=== PATIENT | female | born 1975 | race Caucasian/White ===

== ENCOUNTER 2016-06-27 14:20 | Inpatient (IN) | payer MEDICAID ==
[2016-06-27] MEDS ORDERED: ONDANSETRON 4 MG/2 ML VIAL IVP STA (14:50)
[2016-06-27] MEDS ORDERED: HYOSCYAMINE SL 0.125 MG TABLET SL STA (14:51)
[2016-06-27] MEDS ORDERED: ONDANSETRON 4 MG/2 ML VIAL ONE (15:15)
[2016-06-27] MEDS ORDERED: HYDROmorphone 1 MG/ML SYRINGE IVP STA (16:32)
[2016-06-27] MEDS ORDERED: SODIUM CHLORIDE 0.9% 1,000 ML IV ONE (16:32)
[2016-06-27] MEDS ORDERED: HYDROmorphone 1 MG/ML SYRINGE ONE (16:35)
[2016-06-27] MEDS ORDERED: LORazepam 2 MG/ML SYRINGE IVP STA (17:00)
[2016-06-27] MEDS ORDERED: LORazepam 2 MG/ML SYRINGE ONE (17:06)
[2016-06-27] MEDS: NS W/20 MEQ KCL 1,000 ML IV SCH ×2 (17:47→23:44)
[2016-06-27] MEDS: SODIUM CHLORIDE FLUSH 0.9% 10 ML SYRINGE IVP PRN (18:11)
[2016-06-27] MEDS: PANTOPRAZOLE 40 MG VIAL IVP SCH (18:23)
[2016-06-27] MEDS: HYDROmorphone 1 MG/ML SYRINGE IVP PRN ×3 (19:29→23:35)
[2016-06-27] MEDS: SODIUM CHLORIDE FLUSH 0.9% 10 ML SYRINGE IVP SCH (21:16)
[2016-06-27] MEDS: ONDANSETRON 4 MG/2 ML VIAL IVP PRN (23:35)
[2016-06-28] MEDS: HYDROmorphone 1 MG/ML SYRINGE IVP PRN ×10 (01:36→21:40)
[2016-06-28] MEDS: SODIUM CHLORIDE FLUSH 0.9% 10 ML SYRINGE IVP PRN (04:04)
[2016-06-28] MEDS: ONDANSETRON 4 MG/2 ML VIAL IVP PRN ×2 (04:04→08:39)
[2016-06-28] MEDS: LORazepam 2 MG/ML SYRINGE IVP PRN ×4 (04:10→20:28)
[2016-06-28] MEDS: PANTOPRAZOLE 40 MG VIAL IVP SCH ×2 (06:15→16:00)
[2016-06-28] MEDS: NS W/20 MEQ KCL 1,000 ML IV SCH ×3 (06:15→20:33)
[2016-06-28] MEDS: SODIUM CHLORIDE FLUSH 0.9% 10 ML SYRINGE IVP SCH ×3 (06:15→22:01)
[2016-06-28] MEDS: POLYETHYLENE GLYCOL 3350 17 GM PACKET PO SCH (08:39)
[2016-06-28] MEDS ORDERED: ALBUTEROL NEB 2.5 MG/3 ML INH ONE (09:52)
[2016-06-28] MEDS ORDERED: ALBUTEROL NEB 2.5 MG/3 ML INH PRN (10:15)
[2016-06-28] MEDS: ENOXAPARIN 40 MG/0.4 ML SYRINGE SUBQ SCH (11:08)
[2016-06-29] MEDS: ONDANSETRON 4 MG/2 ML VIAL IVP PRN (00:17)
[2016-06-29] MEDS: HYDROmorphone 1 MG/ML SYRINGE IVP PRN ×10 (00:17→21:46)
[2016-06-29] MEDS: LORazepam 2 MG/ML SYRINGE IVP PRN ×5 (02:32→12:30)
[2016-06-29] MEDS: NS W/20 MEQ KCL 1,000 ML IV SCH ×4 (02:33→18:44)
[2016-06-29] MEDS: SODIUM CHLORIDE FLUSH 0.9% 10 ML SYRINGE IVP SCH ×3 (05:52→23:08)
[2016-06-29] MEDS: PANTOPRAZOLE 40 MG VIAL IVP SCH ×2 (05:53→17:01)
[2016-06-29] MEDS: ENOXAPARIN 40 MG/0.4 ML SYRINGE SUBQ SCH (08:55)
[2016-06-29] MEDS: POLYETHYLENE GLYCOL 3350 17 GM PACKET PO SCH (08:55)
[2016-06-29] MEDS ORDERED: DOCUSATE SODIUM 250 MG CAPSULE PO PRN (22:00)
[2016-06-30] MEDS: LORazepam 2 MG/ML SYRINGE IVP PRN ×4 (00:06→19:03)
[2016-06-30] MEDS: HYDROmorphone 1 MG/ML SYRINGE IVP PRN ×3 (00:06→08:09)
[2016-06-30] MEDS: SENNA 8.6 MG TABLET PO PRN ×2 (00:16→08:13)
[2016-06-30] MEDS: NS W/20 MEQ KCL 1,000 ML IV SCH ×2 (06:46→16:53)
[2016-06-30] MEDS: SODIUM CHLORIDE FLUSH 0.9% 10 ML SYRINGE IVP SCH ×3 (06:46→23:04)
[2016-06-30] MEDS: PANTOPRAZOLE 40 MG VIAL IVP SCH ×2 (06:50→15:52)
[2016-06-30] MEDS: SODIUM CHLORIDE FLUSH 0.9% 10 ML SYRINGE IVP PRN ×3 (08:10→11:56)
[2016-06-30] MEDS: POLYETHYLENE GLYCOL 3350 17 GM PACKET PO SCH (08:13)
[2016-06-30] MEDS: ENOXAPARIN 40 MG/0.4 ML SYRINGE SUBQ SCH (09:58)
[2016-06-30] MEDS: MAGNESIUM HYDROXIDE 2,400 MG/30 ML UDC PO PRN (10:39)
[2016-06-30] MEDS: ONDANSETRON 4 MG/2 ML VIAL IVP PRN (11:52)
[2016-06-30] MEDS ORDERED: oxyCODONE 5 MG TABLET PO PRN (13:16)
[2016-06-30] MEDS ORDERED: ALBUTEROL 8 GM INHALER INH PRN ×2 (15:20→15:28)
[2016-06-30] MEDS ORDERED: ACETAMINOPHEN 1,000 MG/100 ML 100 ML IV PRN (16:39)
[2016-06-30] MEDS ORDERED: ACETAMINOPHEN 1,000 MG/100 ML 100 ML IV SCH (17:00)
[2016-06-30] MEDS: CITALOPRAM 10 MG TABLET PO SCH (19:33)
[2016-06-30] MEDS: HYDROcod/ACETAM 10 MG/325 MG TABLET PO PRN (20:19)
[2016-07-01] MEDS: HYDROcod/ACETAM 10 MG/325 MG TABLET PO PRN (00:23)
[2016-07-01] MEDS: LORazepam 2 MG/ML SYRINGE IVP PRN (00:24)
[2016-07-01] MEDS: HYDROmorphone 1 MG/ML SYRINGE IVP PRN (00:54)
[2016-07-01] MEDS: ACETAMINOPHEN 325 MG TABLET PO PRN ×2 (05:12→14:28)
[2016-07-01] MEDS: SODIUM CHLORIDE FLUSH 0.9% 10 ML SYRINGE IVP SCH (05:14)
[2016-07-01] MEDS: PANTOPRAZOLE 40 MG VIAL IVP SCH (06:03)
[2016-07-01] MEDS: MAGNESIUM HYDROXIDE 2,400 MG/30 ML UDC PO PRN ×2 (07:44→09:54)
[2016-07-01] MEDS: ONDANSETRON 4 MG/2 ML VIAL IVP PRN ×2 (08:30→14:28)
[2016-07-01] MEDS: SODIUM CHLORIDE FLUSH 0.9% 10 ML SYRINGE IVP PRN ×2 (08:30→14:28)
[2016-07-01] MEDS: CITALOPRAM 10 MG TABLET PO SCH (08:30)
[2016-07-01] MEDS: POLYETHYLENE GLYCOL 3350 17 GM PACKET PO SCH (09:54)
[2016-07-01] MEDS: ENOXAPARIN 40 MG/0.4 ML SYRINGE SUBQ SCH (09:55)
[2016-07-01] MEDS: SENNA 8.6 MG TABLET PO PRN (09:55)
== END 2016-07-01 16:10 | disposition home or self-care (01) | DRG 440 ==
DX: K85.20 Alcohol induced acute pancreatitis without necrosis or infection (principal); K70.10 Alcoholic hepatitis without ascites; F10.10 Alcohol abuse, uncomplicated; K83.9 Disease of biliary tract, unspecified; J45.909 Unspecified asthma, uncomplicated; R73.9 Hyperglycemia, unspecified; E66.9 Obesity, unspecified; F32.9 Major depressive disorder, single episode, unspecified; F41.9 Anxiety disorder, unspecified; K21.9 Gastro-esophageal reflux disease without esophagitis; Z68.30 Body mass index [BMI] 30.0-30.9, adult; K76.0 Fatty (change of) liver, not elsewhere classified; K76.89 Other specified diseases of liver

== ENCOUNTER 2016-12-20 05:31 | Inpatient (IN) | payer MEDICAID ==
[2016-12-20] MEDS ORDERED: FAMOTIDINE 20 MG/2 ML VIAL IVP STA (05:38)
[2016-12-20] MEDS ORDERED: SODIUM CHLORIDE 0.9% 1,000 ML IV ONE ×2 (05:38→06:55)
[2016-12-20] MEDS ORDERED: ONDANSETRON 4 MG/2 ML VIAL IVP STA (05:38)
[2016-12-20] MEDS ORDERED: ONDANSETRON 4 MG/2 ML VIAL ONE (05:59)
[2016-12-20] MEDS ORDERED: SODIUM CHLORIDE FLUSH 0.9% 10 ML SYRINGE IVP ONE (05:59)
[2016-12-20] MEDS ORDERED: FAMOTIDINE 20 MG/2 ML VIAL ONE (06:00)
--- NOTE | 2016-12-20 06:00 | ED Physician Documentation ---
PD HPI ABD PAIN - Stated complaint Stated Complaint: ABD PX - Chief complaint Chief Complaint: Abd Pain - History obtained from History obtained from: Patient - History of Present Illness Timing - onset: Yesterday Timing - details: Gradual onset, Still present Quality: Sharp, Stabbing Location: Epigastric Worsened by: Eating, Palpation Associated symptoms: Nausea, Vomiting. No: Fever, Hematemesis, Diarrhea, Constipation, Melena, Hematochezia Similar symptoms before: Work up / diagnostics, Treatment Recently seen: Not recently seen - Additional information Additional information: Patient is a 41 year old female with a history of alcohol abuse and pancreatitis who is presenting to the emergency department for epigastric pain. Patient states that after being diagnosed with pancreatitis she had quit drinking for awhile but recently she started up again. Patient states that she had epigastric pain starting yesterday and one episode of emesis. Review of Systems Constitutional: denies: Fever, Chills Eyes: denies: Loss of vision Nose: denies: Rhinorrhea / runny nose, Congestion Throat: denies: Oral lesions / sores, Sore throat Cardiac: denies: Chest pain / pressure, Palpitations, Calf pain Respiratory: denies: Dyspnea, Cough GI: reports: Abdominal Pain, Nausea, Vomiting. denies: Constipation, Diarrhea : denies: Dysuria, Frequency, Hesitancy, Unable to Void, Hematuria, Discharge , Vaginal bleeding Skin: denies: Rash, Lesions Neurologic: denies: Generalized weakness, Focal weakness Psychiatric: denies: Depressed, Suicidal PD PAST MEDICAL HISTORY - Past Medical History Cardiovascular: None Respiratory: Asthma Neuro: None Endocrine/Autoimmune: None GI: GERD : None HEENT: None Psych: Depression, Anxiety Musculoskeletal: None Derm: None Other Past Medical History: pancreatitis - Past Surgical History Past Surgical History: No - Present Medications Home Medications: Ambulatory Orders Medication Instructions Recorded Confirmed Omeprazole [PriLOSEC] 20 mg PO DAILY 02/23/16 12/20/16 Albuterol Sulfate [Proair Hfa 1 - 2 puffs INH Q4H PRN 06/28/16 12/20/16 Inhaler] Multivitamin [Theragran] 1 tab PO DAILY 06/28/16 12/20/16 - Allergies Allergies/Adverse Reactions: Allergies Allergy/AdvReac Type Severity Reaction Status Date / Time No Known Drug Allergies Allergy Verified 02/23/16 17:22 - Social History Does the pt smoke?: No Smoking Status: Never smoker Does the pt drink ETOH?: Yes Does the pt have substance abuse?: No - Immunizations Immunizations: TDAP >10years/unknown, Other immun current - POLST Patient has POLST: No PD ED PE NORMAL - Vitals Vital signs reviewed: Yes - General General: Alert and oriented X 3, No acute distress, Well developed/nourished - HEENT HEENT: Atraumatic, PERRL, Pharynx benign - Cardiac Cardiac: RRR, No murmur - Respiratory Respiratory: No respiratory distress - Abdomen Abdomen: Soft - Derm Derm: Normal color, Warm and dry, No rash - Extremities Extremities: No deformity, No tenderness to palpate, Normal ROM s pain, No edema - Neuro Neuro: Alert and oriented X 3, No motor deficit, No sensory deficit, Normal speech - Psych Psych: Normal mood PD ED PE EXPANDED - HEENT HEENT: Dry mucous membranes - Abdomen Abdomen: Tender to palpation, Epigastric. No: Rebound, Guarding Results - Vitals Vitals: Vital Signs - 24 hr 12/20/16 12/20/16 12/20/16 05:35 06:06 06:22 Temperature 36.2 C L Heart Rate 96 78 83 Respiratory 18 18 18 Rate Blood Pressure 155/104 H 134/98 H 140/98 H O2 Saturation 100 100 96 Oxygen O2 Source Room air - Labs Labs: Laboratory Tests 12/20/16 12/20/16 12/20/16 05:50 05:50 05:50 WBC 11.5 H RBC 4.41 Hgb 14.7 Hct 43.4 MCV 98.6 MCH 33.3 H MCHC 33.8 RDW 13.1 Plt Count 171 MPV 8.5 Neut # 8.2 H Lymph # 2.3 [place] # 0.8 Eos # 0.3 Baso # 0.1 Absolute Nucleated RBC 0.01 Nucleated RBC % 0.0 Sodium 131 L Potassium 3.3 L Chloride 97 L Carbon Dioxide 23 Anion Gap 11.0 BUN 8 Creatinine 0.5 Estimated GFR (MDRD) 135 Glucose 120 H Calcium 8.5 Total Bilirubin 0.9 AST 109 H ALT 125 H Alkaline Phosphatase 71 Lactate Dehydrogenase 220 Total Protein 7.8 Albumin 4.0 Globulin 3.8 Albumin/Globulin Ratio 1.1 Lipase 3310 H - Rads (name of study) ct abd pelvis Radiology: EMP read indepedently (pancreatisis) PD MEDICAL DECISION MAKING - ED course Complexity details: reviewed old records, reviewed results, re-evaluated patient , considered differential, d/w patient ED course: Patient was seen and examined at bedside. IV access was gained and labs were drawn. patient was treated with fluids, zofran, pepcid and morphine. previous results were reviewed which were consistent with pancreatitis. When patient's labs returned she was sent for imaging. When patient returned the results were reviewed. It was consistent with pancreatitis. case was discussed with hospitalist and treated with an additional liter of fluid. Patient had a low hu score but still required admission. Departure - Departure Disposition: 66 [facility] DC/Xfer Clinical Impression: Pancreatitis Condition: Good
[2016-12-20 06:01] LABS: BASOPHILS # (AUTO) 0.1 10^3/uL (0.0-0.1); BASOPHILS % (AUTO) 0.6 %; EOSINOPHILS # (AUTO) 0.3 10^3/uL (0.0-0.7); EOSINOPHILS % (AUTO) 2.4 %; HCT - HEMATOCRIT 43.4 % (37.0-47.0); HGB - HEMOGLOBIN 14.7 g/dL (12.0-16.0); LYMPHOCYTES # (AUTO) 2.3 10^3/uL (1.5-3.5); LYMPHOCYTES % (AUTO) 19.6 %; MEAN CORPUSCULAR HEMOGLOBIN 33.3 pg (27.0-31.0); MEAN CORPUSCULAR HGB CONC 33.8 g/dL (32.0-36.0); MEAN CORPUSCULAR VOLUME 98.6 fL (81.0-99.0); MEAN PLATELET VOLUME 8.5 fL (7.9-10.8); MONOCYTES # (AUTO) 0.8 10^3/uL (0.0-1.0); MONOCYTES % (AUTO) 6.6 %; NEUTROPHILS # (AUTO) 8.2 10^3/uL (1.5-6.6); NEUTROPHILS % (AUTO) 70.8 %; RED BLOOD COUNT 4.41 10^6/uL (4.20-5.40); RED CELL DISTRIBUTION WIDTH 13.1 % (12.0-15.0); UNCORRECTED WHITE BLOOD COUNT 11.5 x10^3/uL; WHITE BLOOD COUNT 11.5 x10^3/uL (4.8-10.8)
[2016-12-20] MEDS ORDERED: MORPHINE 10 MG/ML VIAL IVP STA (06:01)
[2016-12-20] MEDS ORDERED: MORPHINE 2 MG/ML SYRINGE ONE (06:08)
[2016-12-20 06:29] LABS: ALBUMIN/GLOBULIN RATIO 1.1 (1.0-2.2); BILIRUBIN,TOTAL 0.9 mg/dL (0.2-1.0); CALCIUM 8.5 mg/dL (8.5-10.3); CREATININE 0.5 mg/dL (0.4-1.0); POTASSIUM 3.3 mmol/L (3.5-5.0); TOTAL PROTEIN 7.8 g/dL (6.7-8.2)
[2016-12-20] MEDS ORDERED: IOPAMIDOL-300 100 ML VIAL ONE (06:37)
[2016-12-20] MEDS ORDERED: IOPAMIDOL-300 100 ML VIAL IVP ONE (07:05)
--- NOTE | 2016-12-20 07:22 | CT Preliminary Report ---
Exam: CT ABDOMEN/PELVIS W/ IMPRESSION: 1. Acute pancreatitis without evidence of pancreatic duct dilatation, pancreatic necrosis, mass or pe ripancreatic fluid collection. 2. Small amount of sludge or low dense gallbladder tones without evidence of acute cholecystitis, nae e duct dilatation or calcified filling defect. 3. Hepatic steatosis. 4. Small to moderately sized hiatal hernia and small umbilical hernia containing fat. 5. Mild colon diverticulosis. [facility] SITE ID: [id number]
--- NOTE | 2016-12-20 07:25 | CT Report ---
EXAM: CT ABDOMEN AND PELVIS EXAM DATE: 12/20/2016 06:47 AM. CLINICAL HISTORY: Epigastric pain, hx of pancreatitis. COMPARISONS: None. TECHNIQUE: Routine helical CT imaging was performed through the abdomen and pelvis. IV contrast: 100 cc of Isovue 300. Enteric contrast: No. Reconstructions: Coronal and sagittal. In accordance with CT protocol optimization, one or more of the following dose reduction techniques w ere utilized for this exam: automated exposure control, adjustment of mA and/or KV based on patient s ize, or use of iterative reconstructive technique. FINDINGS: Lung Bases: Small to moderate size hiatal hernia is noted. No pleural effusion. Liver: Diffuse low density without lobular contour changes or masses. Gallbladder/Bile Ducts: Small amount of sludge or low dense gallbladder stones without gallbladder wa ll thickening visualized. No bile duct dilatation or calcified filling defect. Spleen: Normal. Pancreas: Diffuse mild/moderate peripancreatic fat stranding extending to the second part of the tami -duodenal space is noted. There is no pancreatic duct dilatation. No pancreatic duct dilatation, mass or peripancreatic fluid collection seen. Adrenal Glands: Normal. Kidneys: There is a simple cortical cyst in the mid lateral cortex of the left kidney, 1 cm. No stone , masses or hydronephrosis. Peritoneal Cavity/Bowel: There is mild colon diverticulosis without diverticulitis. No free fluid, fr ee air or adenopathy. No masses or acute inflammatory process. The appendix is well visualized and no rmal. Pelvic Organs: the bladder and visualized pelvic organs are within normal limits. Vasculature: No aneurysms or other significant abnormality. Bones: Mild/moderate degenerative disk disease in the and L5-S1. Other: There is a small umbilical hernia containing fat without fat stranding, 1.8 x 2 cm. IMPRESSION: 1. Acute pancreatitis without evidence of pancreatic duct dilatation, pancreatic necrosis, mass or pe ripancreatic fluid collection. 2. Small amount of sludge or low dense gallbladder tones without evidence of acute cholecystitis, nae e duct dilatation or calcified filling defect. 3. Hepatic steatosis. 4. Small to moderately sized hiatal hernia and small umbilical hernia containing fat. 5. Mild colon diverticulosis. [facility] Referring Provider Line: [phone] SITE ID: [id number]
[2016-12-20] MEDS ORDERED: PROMETHAZINE 25 MG/1 ML VIAL IM PRN (07:51)
[2016-12-20] MEDS ORDERED: SODIUM CHLORIDE FLUSH 0.9% 10 ML SYRINGE IVP PRN (07:51)
[2016-12-20] MEDS: SODIUM CHLORIDE FLUSH 0.9% 10 ML SYRINGE IVP SCH ×2 (08:50→19:47)
[2016-12-20] MEDS: POLYETHYLENE GLYCOL 3350 17 GM PACKET PO SCH ×2 (08:50→19:54)
[2016-12-20] MEDS: SODIUM CHLORIDE 0.9% 1,000 ML IV SCH ×4 (08:50→23:45)
[2016-12-20] MEDS: PANTOPRAZOLE 40 MG VIAL IVP SCH (08:51)
[2016-12-20] MEDS: HYDROmorphone 0.5 MG/0.5 ML SYRINGE IVP PRN ×7 (08:52→23:46)
[2016-12-20 08:59] LABS: BILIRUBIN,URINE NEGATIVE (NEGATIVE); PH,URINE 6.5 PH (5.0-7.5)
[2016-12-20 09:02] LABS: UA w/ MICROSCOPIC CHARGE YES
[2016-12-20 09:10] LABS: UR CULTURE IF IND NOT INDICATED
[2016-12-20 09:47] LABS: BASOPHILS % (AUTO) 0.5 %; EOSINOPHILS # (AUTO) 0.1 10^3/uL (0.0-0.7); EOSINOPHILS % (AUTO) 0.6 %; HCT - HEMATOCRIT 39.1 % (37.0-47.0); HGB - HEMOGLOBIN 13.5 g/dL (12.0-16.0); LYMPHOCYTES % (AUTO) 11.3 %; MEAN CORPUSCULAR HEMOGLOBIN 33.4 pg (27.0-31.0); MEAN CORPUSCULAR HGB CONC 34.5 g/dL (32.0-36.0); MEAN CORPUSCULAR VOLUME 96.8 fL (81.0-99.0); MEAN PLATELET VOLUME 8.7 fL (7.9-10.8); MONOCYTES # (AUTO) 0.5 10^3/uL (0.0-1.0); MONOCYTES % (AUTO) 5.6 %; NEUTROPHILS # (AUTO) 7.6 10^3/uL (1.5-6.6); RED BLOOD COUNT 4.04 10^6/uL (4.20-5.40); UNCORRECTED WHITE BLOOD COUNT 9.3 x10^3/uL; WHITE BLOOD COUNT 9.3 x10^3/uL (4.8-10.8)
[2016-12-20 10:06] LABS: ALBUMIN/GLOBULIN RATIO 1.1 (1.0-2.2); BILIRUBIN,TOTAL 0.7 mg/dL (0.2-1.0); CALCIUM 7.9 mg/dL (8.5-10.3); CREATININE 0.5 mg/dL (0.4-1.0); POTASSIUM 4.1 mmol/L (3.5-5.0); TOTAL PROTEIN 6.7 g/dL (6.7-8.2)
[2016-12-20 10:07] LABS: INR 1.1 (0.8-1.2); PT - PROTHROMBIN TIME 11.8 secs (9.9-12.6)
[2016-12-20] MEDS ORDERED: ALBUTEROL NEB 2.5 MG/3 ML INH PRN (10:21)
[2016-12-20] MEDS ORDERED: MAGNESIUM SULFATE 2 GRAM 2 GM/50 ML BAG IV SCH (10:42)
[2016-12-20] MEDS ORDERED: CYANOCOBALAMIN 1,000 MCG/ML VIAL IM SCH (10:43)
[2016-12-20] MEDS: ALPRAZolam 0.25 MG TABLET PO PRN (11:07)
[2016-12-20] MEDS: PRENATAL VITAMIN TABLET PO SCH (11:08)
[2016-12-20] MEDS: THIAMINE 100 MG TABLET PO SCH (11:08)
[2016-12-20] MEDS: CHOLECALCIFEROL 5,000 UNIT CAPSULE PO SCH ×2 (11:08→19:47)
[2016-12-20] MEDS: ACETAMINOPHEN 325 MG TABLET PO PRN (16:46)
--- NOTE | 2016-12-20 16:48 | HISTORY & PHYSICAL EXAMINATION ---
DATE OF ADMISSION: 12/20/2016 CHIEF COMPLAINT: Abdominal pain. HISTORY OF PRESENT ILLNESS: The patient is a very pleasant 41-year-old female who presented to the ER today with a complaint of gradual onset of abdominal pain that she describes to be sharp a nd stabbing, mostly in the epigastric region. She states that it has progressively gotten worse by ea ting and with palpation. She has had nausea and vomiting associated with this. She denies fever, chil ls, diarrhea, constipation, hematochezia or hematemesis. She states she has had similar symptoms befo re while she was at work. 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 She does have excessive alcohol usage, which she does d rink daily, usually wine. She states the last time that she was diagnosed with pancreatitis she had q uit drinking, but then she had recently just started up again. She states that she has been trying to quit again with no avail. She denies congestion, sore throat, chest pain, palpitations, cough, dysur ia, rash, lesions, generalized weakness, depression or suicidal ideation. She admits to abdominal yumiko n with nausea and vomiting. While in the ER, lab work was done and lipase showed to be 3300. She was given IV fluids for aggressive hydration. She was given morphine IV for pain. She will be admitted in to inpatient status with aggressive hydration and IV pain medication, Zofran for nausea, Phenergan fo r vomiting. Her only other past medical history includes asthma and GERD and anxiety. ALLERGIES: NO KNOWN DRUG ALLERGIES. HOME MEDICATIONS: 1. Prilosec 20 mg p.o. daily. 2. Albuterol sulfate 1-2 puffs inhaled q.4h. hours p.r.n.. 3. Theragran multivitamin p.o. daily. PAST MEDICAL HISTORY: 1. Asthma. 2. Gastroesophageal reflux disease. 3. Depression and anxiety. 4. Past history of pancreatitis. 5. Obesity and alcohol abuse. PAST SURGICAL HISTORY: None. SOCIAL HISTORY: The patient has never smoked. She does use alcohol on a daily basis and is an alcohol ic and admits to this. She does not use any illicit street drugs at the time, but she did smoke marij uana approximately 3-4 weeks ago. FAMILY HISTORY: The patient states that her mom has a history of hypertension and her father also has a history of stroke. REVIEW OF SYSTEMS: Ten systems have been reviewed and negative with exceptions as discussed in the HP I prior. PHYSICAL EXAMINATION: CONSTITUTIONAL: The patient is alert, in no acute distress. EYES: Pupils equal, round and react to light and accommodation. Conjunctivae and sclerae was nonicter ic, not injected. ENT: Nares are patent. No nasal discharge. OROPHARYNX: No masses, exudates or lesions. Mucous membranes are moist. NECK: Supple. No thyromegaly. RESPIRATORY: Breath sounds are clear and equal bilaterally to auscultation and percussion, no retract ions or nasal flaring. CARDIOVASCULAR: S1, S2 noted. No gallops, murmurs or rubs. Normal PMI. No JVD. GASTROINTESTINAL: Abdomen is soft, obese, tender to mid epigastric region, otherwise no guarding or r ebound. NEUROLOGICAL: She is alert, GCS 15. Cranial nerves 2 through 7 grossly intact. Sensory is intact. SKIN: Warm, dry, intact. Normal turgor. No evidence of rash, lesions, or cellulitis. MUSCULOSKELETAL: Extremities: The patient has full range of motion with upper and lower extremities. No cyanosis. Motor is 5/5 to upper and lower extremities. PSYCHIATRIC: Behavior is appropriate. Normal affect, pleasant mood. Alert and oriented x3. No suicida l ideation. She is oriented x3, cooperative, and normal affect. HEMATOLOGIC: No active bleeding. The patient is hemodynamically stable. LYMPHATICS: No cervical, axillary, or supraclavicular lymphadenopathy is noted. GENITOURINARY: No CVA tenderness. No mass palpated. No bladder distention. VITAL SIGNS: Temperature is 36.2, heart rate 78, respirations 18, and blood pressure is 134/98, with an oxygen saturation of 100% on room air. LABORATORIES AND DIAGNOSTICS: I personally reviewed all laboratory and diagnostic data in the medical records. The results are as follows: WBC is 11.5. Neutrophil percentage 8.2, sodium is 131, potassiu m 3.3, chloride 97, glucose 120, AST is 109, ALT is 125, lipase is 3310. DIAGNOSTIC IMAGING: CT of the abdomen and pelvis performed in the ER with an impression showing acute pancreatitis without evidence of pancreatic duct dilatation, pancreatic necrosis, mass, peripancreat ic fluid collection, small amount of sludge dense gallbladder stones, without evidence of acu te cholecystitis, bile duct dilatation or calcified filling defect. Hepatic steatosis, mild colon div erticulosis, small to moderately sized hiatal hernia and small umbilical hernia containing fat. ASSESSMENT: 1. Acute mid epigastric abdominal pain with acute pancreatitis, probably alcoholic. PLAN: Admit the patient inpatient with IV aggressive hydration and IV pain medication, Dilaudid and m orphine. IV Zofran and Phenergan for nausea, vomiting. N.p.o. status to advance as tolerated. Will pr ovide alcohol cessation counseling. The patient has been placed on CIWA protocol with Ativan IV as ne eded for withdrawal. Will continue to monitor on telemetry. We will continue to monitor electrolytes including magnesium level. 2. Acute hyponatremia/hypokalemia and hypomagnesium and other electrolyte imbalances with acute on ch ronic alcohol abuse with dependence. PLAN: We will replete electrolytes including potassium IV, magnesium sulfate IV, and we will give IV fluids, normal saline aggressive hydration. We will repeat all electrolytes levels with daily lab gonzalo edenilson in the morning. We will continue to monitor the patient on telemetry. 3. Acute on chronic alcohol usage with dependence, uncomplicated and with acute alcohol-induced syndr ome. PLAN: Continue to residence counselor the patient on alcohol cessation. Will continue to monitor electrolytes. Th e patient's pancreatitis is likely due to alcohol use; however, will also rule out elevated triglycer ides with a lipid profile in the morning. 4. Chronic asthma unspecified without exacerbation. PLAN: Will continue the patient on her normal dosage of Albuterol sulfate as needed and supplemental oxygen has been ordered with respiratory therapy support if needed. 5. Chronic gastroesophageal reflux disease with mild to moderate size hiatal hernia. PLAN: Will continue the patient on omeprazole 20 mg p.o. daily. 6. Chronic depression with anxiety disorder, unspecified. PLAN: We will continue to monitor the patient's mental and behavioral status. CIWA protocol has been ordered, Ativan for agitation. The patient has also been given Xanax for anxiety and mood disorder. 7. Deep venous thrombosis prophylaxis with SCDS/foot pumps and walking. 8. STATUS: FULL CODE STATUS. 9. RISK ASSESSMENT/DISPOSITION: The patient is high risk for worsening comorbidities. She will requir e additional IV medication and possible additional diagnostics. Code status was addressed at bedside. The patient is admitted inpatient and will require at least 2 midnight stay due to her comorbidities . Time spent on assessment was 40 minutes for planning, education, and assessment. JOB #: [id number] EXT JOB #:[id number]
[2016-12-20] MEDS: ONDANSETRON 4 MG/2 ML VIAL IVP PRN (16:49)
[2016-12-20] MEDS: LORazepam 2 MG/ML SYRINGE IVP PRN ×3 (17:06→23:45)
[2016-12-20] MEDS: MORPHINE 2 MG/ML SYRINGE IVP PRN (19:46)
[2016-12-20] MEDS: ALBUTEROL NEB 2.5 MG/3 ML INH PRN (20:48)
[2016-12-21] MEDS: ALBUTEROL NEB 2.5 MG/3 ML INH PRN (00:45)
[2016-12-21] MEDS: HYDROmorphone 0.5 MG/0.5 ML SYRINGE IVP PRN ×10 (01:41→23:40)
[2016-12-21] MEDS: SODIUM CHLORIDE 0.9% 1,000 ML IV SCH ×4 (04:42→21:38)
[2016-12-21 05:44] LABS: BASOPHILS % (AUTO) 0.3 %; EOSINOPHILS # (AUTO) 0.1 10^3/uL (0.0-0.7); EOSINOPHILS % (AUTO) 0.8 %; HCT - HEMATOCRIT 37.6 % (37.0-47.0); HGB - HEMOGLOBIN 12.8 g/dL (12.0-16.0); LYMPHOCYTES # (AUTO) 0.8 10^3/uL (1.5-3.5); LYMPHOCYTES % (AUTO) 8.7 %; MEAN CORPUSCULAR HEMOGLOBIN 33.8 pg (27.0-31.0); MEAN CORPUSCULAR HGB CONC 34.1 g/dL (32.0-36.0); MONOCYTES # (AUTO) 0.7 10^3/uL (0.0-1.0); MONOCYTES % (AUTO) 7.1 %; NEUTROPHILS # (AUTO) 7.7 10^3/uL (1.5-6.6); NEUTROPHILS % (AUTO) 83.1 %; RED CELL DISTRIBUTION WIDTH 12.6 % (12.0-15.0); UNCORRECTED WHITE BLOOD COUNT 9.3 x10^3/uL; WHITE BLOOD COUNT 9.3 x10^3/uL (4.8-10.8)
[2016-12-21 06:01] LABS: BUN - BLOOD UREA NITROGEN < 5 mg/dL (6-20); CALCIUM 7.4 mg/dL (8.5-10.3); CARBON DIOXIDE - CO2 23 mmol/L (21-32); CHLORIDE 102 mmol/L (101-111); CHOL/HDL RATIO 3.5 (<4.4); CHOLESTEROL 192 mg/dL; CREATININE 0.4 mg/dL (0.4-1.0); GFR - MDRD 174 (>89); GLUCOSE 128 mg/dL (70-100); HDL CHOLESTEROL 55 mg/dL; LDL/HDL RATIO 2.3 (<4.4); POTASSIUM 4.1 mmol/L (3.5-5.0); SODIUM 131 mmol/L (135-145); TOTAL PROTEIN 6.2 g/dL (6.7-8.2); TRIGLYCERIDES 48 mg/dL; VLDL CHOLESTEROL 10 mg/dL
[2016-12-21] MEDS: PANTOPRAZOLE 40 MG VIAL IVP SCH (06:13)
[2016-12-21] MEDS: SODIUM CHLORIDE FLUSH 0.9% 10 ML SYRINGE IVP SCH ×3 (06:13→19:03)
[2016-12-21 06:16] LABS: MAGNESIUM 1.8 mg/dL (1.7-2.8)
[2016-12-21] MEDS: POLYETHYLENE GLYCOL 3350 17 GM PACKET PO SCH (07:39)
[2016-12-21] MEDS: ONDANSETRON 4 MG/2 ML VIAL IVP PRN (07:40)
[2016-12-21] MEDS: ALPRAZolam 0.25 MG TABLET PO PRN ×2 (07:44→17:01)
[2016-12-21] MEDS: CHOLECALCIFEROL 5,000 UNIT CAPSULE PO SCH ×2 (07:46→19:03)
--- NOTE | 2016-12-21 07:50 | PROVIDER PROGRESS NOTE ---
Assessment/Plan - Problem List (1) Alcohol induced acute pancreatitis without necrosis or infection Assessment/Plan: improving. lipase today has decreased to 1300 but patient is still having pain and still not eating much. will try to advance her diet and continue to monitor her lipase and electrolytes. will continue on IVF NS for hydration. continue on IV pain medications. will try to decrease pain meds and taper to oral prior to discharge. continued on alcohol counseling and monitoring for withdrawal with CIWA protocol. continue to monitor LFT with daily lab draws (2) Alcohol abuse with alcohol-induced disorder Assessment/Plan: improving. elevated liver enzymes improving and she has been counseled on cessation and problems with alcohol abuse. she is on CIWA protocol and continue to monitor behavior and vital signs for withdrawal (3) Hypophosphatemia Assessment/Plan: acute. will given neutraphos oral and monitor levels with daily lab draws. (4) Hyponatremia Assessment/Plan: acute. continue with IVF for hydration and monitor with daily lab draws. - Current Meds Current Meds: Current Medications Generic Name Dose Route Start Last Admin Trade Name Patience PRN Reason Stop Dose Admin Acetaminophen 650 mg 12/20/16 07:51 12/20/16 16:46 Tylenol PO 650 mg Q4HR PRN Administration Pain 1 to 4 Albuterol 2.5 mg 12/20/16 14:15 12/21/16 00:45 INH 2.5 mg RTQ4H PRN Administration Wheezing Alprazolam 0.5 mg 12/20/16 10:42 12/21/16 07:44 Xanax PO 0.5 mg BID PRN Administration Anxiety Cholecalciferol 5,000 unit 12/20/16 11:00 12/21/16 07:46 Vitamin D3 PO 5,000 unit BID WARREN Administration Hydromorphone HCl 0.5 mg 12/20/16 07:51 12/21/16 07:40 Dilaudid Inj Syringe IVP 0.5 mg Q2H PRN Administration Pain 8 to 10 Sodium Chloride 1,000 mls @ 200 mls/hr 12/20/16 08:00 12/21/16 04:42 Normal Saline 0.9% IV 200 mls/hr .Q5H WARREN Administration Lorazepam 1 mg 12/20/16 09:21 12/20/16 23:45 Ativan Inj IVP 1 mg Q30M PRN Administration CIWA > 8 Protocol Morphine Sulfate 2 mg 12/20/16 17:37 12/20/16 19:46 Morphine IVP 2 mg Q2H PRN Administration PAIN Ondansetron HCl 4 mg 12/20/16 07:51 12/21/16 07:40 Zofran Inj IVP 4 mg Q6HR PRN Administration Nausea / Vomiting Pantoprazole Sodium 40 mg 12/20/16 07:00 12/21/16 06:13 Protonix IVP 40 mg QDAC WARREN Administration Polyethylene Glycol 17 gm 12/20/16 09:00 12/21/16 07:39 Miralax PO 17 gm DAILY WARREN Administration Multivit/Folic Acid/Iron 1 tab 12/20/16 10:00 12/20/16 11:08 Trinatal Rx 1 PO 1 tab DAILY WARREN Administration Sodium Chloride 10 ml 12/20/16 14:00 12/21/16 06:13 Normal Saline Flush 0.9% IVP 10 ml Q8HR WARREN Administration Thiamine HCl 100 mg 12/20/16 10:00 12/20/16 11:08 Vitamin B-1 PO 100 mg DAILY WARREN Administration - Lab Result Lab results reviewed: Yes Fish Bone Diagrams: 12/21/16 05:12 12/21/16 05:12 Other Lab Results: Abnormal Lab Results 12/20/16 12/20/16 12/20/16 05:50 05:50 08:45 WBC 11.5 x10^3/uL H x10^3/uL (4.8-10.8) RBC MCH 33.3 pg H pg (27.0-31.0) Plt Count Neut # 8.2 10^3/uL H 10^3/uL (1.5-6.6) Lymph # Sodium 131 mmol/L L mmol/L (135-145) Potassium 3.3 mmol/L L mmol/L (3.5-5.0) Chloride 97 mmol/L L mmol/L (101-111) BUN Glucose 120 mg/dL H mg/dL (70-100) Calcium Phosphorus Magnesium AST 109 IU/L H IU/L (10-42) ALT 125 IU/L H IU/L (10-60) Total Protein Albumin HDL Cholesterol Lipase 3310 U/L H U/L (22-51) Ur Leukocyte Esterase MODERATE H (NEGATIVE) Urine WBC 11-25 /HPF H /HPF (0-5) Ur Squamous Epith Cells MOD Squamous H (<= Few) Urine Opiates Screen 12/20/16 12/20/16 12/20/16 08:45 09:40 09:40 WBC RBC 4.04 10^6/uL L 10^6/uL (4.20-5.40) MCH 33.4 pg H pg (27.0-31.0) Plt Count 128 10^3/uL L 10^3/uL (130-450) Neut # 7.6 10^3/uL H 10^3/uL (1.5-6.6) Lymph # 1.0 10^3/uL L 10^3/uL (1.5-3.5) Sodium 132 mmol/L L mmol/L (135-145) Potassium Chloride 100 mmol/L L mmol/L (101-111) BUN Glucose 120 mg/dL H mg/dL (70-100) Calcium 7.9 mg/dL L mg/dL (8.5-10.3) Phosphorus Magnesium AST 86 IU/L H IU/L (10-42) ALT 108 IU/L H IU/L (10-60) Total Protein Albumin HDL Cholesterol Lipase Ur Leukocyte Esterase Urine WBC Ur Squamous Epith Cells Urine Opiates Screen POSITIVE H (NEGATIVE) 12/20/16 12/21/16 12/21/16 09:40 05:12 05:12 WBC RBC MCH Plt Count Neut # Lymph # Sodium 131 mmol/L L mmol/L (135-145) Potassium Chloride BUN < 5 mg/dL L mg/dL (6-20) Glucose 128 mg/dL H mg/dL (70-100) Calcium 7.4 mg/dL L mg/dL (8.5-10.3) Phosphorus 2.0 mg/dL L mg/dL (2.5-4.6) Magnesium 1.4 mg/dL L mg/dL (1.7-2.8) AST 46 IU/L H IU/L (10-42) ALT 71 IU/L H IU/L (10-60) Total Protein 6.2 g/dL L g/dL (6.7-8.2) Albumin 3.1 g/dL L g/dL (3.2-5.5) HDL Cholesterol 55 mg/dL L mg/dL (60 - ) Lipase 1386 U/L H U/L (22-51) Ur Leukocyte Esterase Urine WBC Ur Squamous Epith Cells Urine Opiates Screen 12/21/16 05:12 WBC RBC 3.80 10^6/uL L 10^6/uL (4.20-5.40) MCH 33.8 pg H pg (27.0-31.0) Plt Count 114 10^3/uL L 10^3/uL (130-450) Neut # 7.7 10^3/uL H 10^3/uL (1.5-6.6) Lymph # 0.8 10^3/uL L 10^3/uL (1.5-3.5) Sodium Potassium Chloride BUN Glucose Calcium Phosphorus Magnesium AST ALT Total Protein Albumin HDL Cholesterol Lipase Ur Leukocyte Esterase Urine WBC Ur Squamous Epith Cells Urine Opiates Screen - EKG Results EKG Interpreted Independently: No - Additional Planning Condition/Complexity: Improved My Orders: My Active Orders 12/20/16 07:00 Pantoprazole [Protonix] 40 mg IVP QDAC 12/20/16 07:51 Acetaminophen [Tylenol] 650 mg PO Q4HR PRN HYDROmorphone INJ SYRINGE [Dilaudid Inj Syringe] 0.5 mg IVP Q2H PRN Ondansetron Inj [Zofran Inj] 4 mg IVP Q6HR PRN Promethazine Inj [Phenergan Inj] 25 mg IM Q6HR PRN Sodium Chloride Flush 0.9% [Normal Saline Flush 0.9%] 10 ml IVP PRN PRN 12/20/16 07:52 Activity Orders [RC] Routine IO [RC] IOSHIFT Initiate Bowel Care Protocol [RC] .protocol Initiate Line Care Protocol [RC] .protocol Initiate Personal Care Protoco [RC] .protocol Oxygen Therapy [RC] .PRN Vital Signs [RC] Q8HR Code Status [OTHERS] Routine Condition of Patient [OTHERS] Routine DVT Prophylaxis [OTHERS] Routine 12/20/16 07:53 Foot Pumps [RC] QSHIFT Telemetry- [RC] Routine 12/20/16 08:00 Sodium Chloride 0.9% [Normal Saline 0.9%] 1,000 ml IV 200 mls/hr 12/20/16 09:00 Polyethylene Glycol 3350 [Miralax] 17 gm PO DAILY 12/20/16 09:21 CIWA-Ar Score Assessment (IV) [RC] ONCE LORazepam INJ [Ativan Inj] 1 mg IVP Q30M PRN 12/20/16 09:22 CIWA - AR Score Card [RC] Q2H Q2H Neuro Check [RC] QSHIFT QSHIFT Social Work Consult [CONS] Routine 12/20/16 10:00 Vitamin [Trinatal Rx 1] 1 tab PO DAILY Thiamine [Vitamin B-1] 100 mg PO DAILY 12/20/16 10:42 ALPRAZolam [Xanax] 0.5 mg PO BID PRN 12/20/16 11:00 Cholecalciferol [Vitamin D3] 5,000 unit PO BID 12/20/16 14:00 Sodium Chloride Flush 0.9% [Normal Saline Flush 0.9%] 10 ml IVP Q8HR 12/20/16 14:15 Albuterol 2.5 mg INH RTQ4H PRN 12/20/16 14:16 Nebulizer/MDI Tx. [RC] .Q4 PRN 12/20/16 17:37 Morphine Inj [Morphine] 2 mg IVP Q2H PRN 12/21/16 08:00 Neutra-Phos [K-Phos Neutral] 250 mg PO TIDWM 12/22/16 05:00 CBC - COMP BLD CT W/AUTO DIFF [HEME] DAILYLAB CMP [COMPREHENSIVE METABOLIC PANEL] [CHEM] DAILYLAB LIPASE [CHEM] DAILYLAB Plan Discussed with:: Patient, Case Management Time Spent: 31-60 minutes Additional Planning Notes: plan to discharge patient within the next 24 hours pending improvement in lipase and pain management Subjective - Subjective Patient Reports: Resting Comfortably, Nausea, Pain Nursing Reports: Nausea, Pain (to abdomen with some nausea and vomiting), Vomitting Objective Vital Signs: Vital Signs - 24 hr 12/20/16 12/20/16 12/20/16 13:14 15:22 20:48 Temperature 36.3 C L 36.5 C Heart Rate 83 Heart Rate [ 90 95 Brachial] Respiratory 16 18 18 Rate Blood Pressure 119/87 H 134/94 H [Right Brachial artery] O2 Saturation 98 95 12/20/16 12/21/16 12/21/16 23:37 00:45 05:24 Temperature 37.6 C H 36.7 C Heart Rate 98 Heart Rate [ 100 Brachial] Respiratory 16 18 16 Rate Blood Pressure 138/94 H 135/94 H [Right Brachial artery] O2 Saturation 100 100 Oxygen O2 Source Room air I&O (Last 24 Hrs): Intake and Output Totals x24h 12/19/16 12/20/16 12/21/16 23:59 23:59 23:59 Intake Total 4593.333 1390 Output Total 1000 1600 Balance 3593.333 -210 General: Alert, Oriented x3, Cooperative HEENT: Atraumatic, PERRLA, EOMI Neck: Supple, No JVD, No thyromegaly Lymphatic: no adenopathy Neuro: Alert, CN 2-12 Grossly Intact, Oriented Times 3 Cardiovascular: Regular rate, Normal S1, Normal S2 Respiratory: Chest non-tender, No respiratory distress, Breath sounds nml Abdomen: Normal bowel sounds, Soft, No hepatospenomegaly, No masses, Other ( tenderness to mid epigastric region with deep palpation) Extremities: No clubbing, No cyanosis, No edema, Normal pulses, No tenderness/ swelling Skin: No rashes, No breakdown, No significant lesion - Results Results: Laboratory Results WBC 9.3 x10^3/uL (4.8-10.8) 12/21/16 05:12 RBC 3.80 10^6/uL (4.20-5.40) L 12/21/16 05:12 Hgb 12.8 g/dL (12.0-16.0) 12/21/16 05:12 Hct 37.6 % (37.0-47.0) 12/21/16 05:12 MCV 99.0 fL (81.0-99.0) 12/21/16 05:12 MCH 33.8 pg (27.0-31.0) H 12/21/16 05:12 MCHC 34.1 g/dL (32.0-36.0) 12/21/16 05:12 RDW 12.6 % (12.0-15.0) 12/21/16 05:12 Plt Count 114 10^3/uL (130-450) L 12/21/16 05:12 MPV 9.0 fL (7.9-10.8) 12/21/16 05:12 Neut # 7.7 10^3/uL (1.5-6.6) H 12/21/16 05:12 Lymph # 0.8 10^3/uL (1.5-3.5) L 12/21/16 05:12 Gibson # 0.7 10^3/uL (0.0-1.0) 12/21/16 05:12 Eos # 0.1 10^3/uL (0.0-0.7) 12/21/16 05:12 Baso # 0.0 10^3/uL (0.0-0.1) 12/21/16 05:12 Absolute Nucleated RBC 0.00 x10^3/uL 12/21/16 05:12 Nucleated RBC % 0.0 /100WBC 12/21/16 05:12 PT 11.8 secs (9.9-12.6) 12/20/16 09:40 INR 1.1 (0.8-1.2) 12/20/16 09:40 Sodium 131 mmol/L (135-145) L 12/21/16 05:12 Potassium 4.1 mmol/L (3.5-5.0) 12/21/16 05:12 Chloride 102 mmol/L (101-111) 12/21/16 05:12 Carbon Dioxide 23 mmol/L (21-32) 12/21/16 05:12 Anion Gap 6.0 (6-13) 12/21/16 05:12 BUN < 5 mg/dL (6-20) L 12/21/16 05:12 Creatinine 0.4 mg/dL (0.4-1.0) 12/21/16 05:12 Estimated GFR (MDRD) 174 (>89) 12/21/16 05:12 Glucose 128 mg/dL (70-100) H 12/21/16 05:12 Calcium 7.4 mg/dL (8.5-10.3) L 12/21/16 05:12 Phosphorus 2.0 mg/dL (2.5-4.6) L 12/21/16 05:12 Magnesium 1.8 mg/dL (1.7-2.8) 12/21/16 05:12 Total Bilirubin 1.0 mg/dL (0.2-1.0) 12/21/16 05:12 AST 46 IU/L (10-42) H 12/21/16 05:12 ALT 71 IU/L (10-60) H 12/21/16 05:12 Alkaline Phosphatase 55 IU/L (42-121) 12/21/16 05:12 Lactate Dehydrogenase 220 IU/L (91-225) 12/20/16 05:50 Total Protein 6.2 g/dL (6.7-8.2) L 12/21/16 05:12 Albumin 3.1 g/dL (3.2-5.5) L 12/21/16 05:12 Globulin 3.1 g/dL (2.1-4.2) 12/21/16 05:12 Albumin/Globulin Ratio 1.0 (1.0-2.2) 12/21/16 05:12 Triglycerides 48 mg/dL (-149) 12/21/16 05:12 Cholesterol 192 mg/dL (-199) 12/21/16 05:12 LDL Cholesterol, Calc 127 mg/dL (-129) 12/21/16 05:12 VLDL Cholesterol 10 mg/dL 12/21/16 05:12 HDL Cholesterol 55 mg/dL (60-) L 12/21/16 05:12 LDL/HDL Ratio 2.3 (<4.4) 12/21/16 05:12 Cholesterol/HDL Ratio 3.5 (<4.4) 12/21/16 05:12 Lipase 1386 U/L (22-51) H 12/21/16 05:12 Urine Color YELLOW 12/20/16 08:45 Urine Clarity HAZY (CLEAR) 12/20/16 08:45 Urine pH 6.5 PH (5.0-7.5) 12/20/16 08:45 Ur Specific [place] 1.010 (1.002-1.030) 12/20/16 08:45 Urine Protein NEGATIVE mg/dL (NEGATIVE) 12/20/16 08:45 Urine Glucose (UA) NEGATIVE mg/dL (NEGATIVE) 12/20/16 08:45 Urine Ketones TRACE mg/dL (NEGATIVE) 12/20/16 08:45 Urine Occult Blood NEGATIVE (NEGATIVE) 12/20/16 08:45 Urine Nitrite NEGATIVE (NEGATIVE) 12/20/16 08:45 Urine Bilirubin NEGATIVE (NEGATIVE) 12/20/16 08:45 Urine Urobilinogen 0.2 (NORMAL) E.U./dL (NORMAL) 12/20/16 08:45 Ur Leukocyte Esterase MODERATE (NEGATIVE) H 12/20/16 08:45 Urine RBC 0-5 /HPF (0-5) 12/20/16 08:45 Urine WBC 11-25 /HPF (0-5) H 12/20/16 08:45 Ur Squamous Epith Cells MOD Squamous (<= Few) H 12/20/16 08:45 Urine Bacteria Rare /HPF (None Seen) 12/20/16 08:45 Ur Microscopic Review INDICATED 12/20/16 08:45 Urine Culture Comments NOT INDICATED 12/20/16 08:45 Urine Opiates Screen POSITIVE (NEGATIVE) H 12/20/16 08:45 Ur Oxycodone Screen NEGATIVE (NEGATIVE) 12/20/16 08:45 Urine Methadone Screen NEGATIVE (NEGATIVE) 12/20/16 08:45 Ur Propoxyphene Screen NEGATIVE (NEGATIVE) 12/20/16 08:45 Ur Barbiturates Screen NEGATIVE (NEGATIVE) 12/20/16 08:45 Ur Tricyclics Screen NEGATIVE (NEGATIVE) 12/20/16 08:45 Ur Phencyclidine Scrn NEGATIVE (NEGATIVE) 12/20/16 08:45 Ur Amphetamine Screen NEGATIVE (NEGATIVE) 12/20/16 08:45 U Methamphetamines Scrn NEGATIVE (NEGATIVE) 12/20/16 08:45 U Benzodiazepines Scrn NEGATIVE (NEGATIVE) 12/20/16 08:45 Urine Cocaine Screen NEGATIVE (NEGATIVE) 12/20/16 08:45 U Cannabinoids Screen NEGATIVE (NEGATIVE) 12/20/16 08:45
[2016-12-21] MEDS: NEUTRA-PHOS 250 MG TABLET PO SCH ×3 (09:37→17:00)
[2016-12-21] MEDS: PRENATAL VITAMIN TABLET PO SCH (09:38)
[2016-12-21] MEDS: THIAMINE 100 MG TABLET PO SCH (09:38)
[2016-12-21 10:38] LABS: HEMOGLOBIN A1C 0.45 g/dL
[2016-12-21] MEDS: LORazepam 2 MG/ML SYRINGE IVP PRN ×2 (19:02→21:35)
[2016-12-22] MEDS: SODIUM CHLORIDE 0.9% 1,000 ML IV SCH ×3 (00:09→11:29)
[2016-12-22] MEDS: ACETAMINOPHEN 325 MG TABLET PO PRN (05:10)
[2016-12-22] MEDS: PANTOPRAZOLE 40 MG VIAL IVP SCH (06:15)
[2016-12-22] MEDS: SODIUM CHLORIDE FLUSH 0.9% 10 ML SYRINGE IVP SCH (06:15)
[2016-12-22] MEDS: MORPHINE 2 MG/ML SYRINGE IVP PRN ×2 (06:17→10:25)
[2016-12-22 06:23] LABS: BASOPHILS % (AUTO) 0.5 %; EOSINOPHILS # (AUTO) 0.2 10^3/uL (0.0-0.7); EOSINOPHILS % (AUTO) 3.2 %; HGB - HEMOGLOBIN 11.9 g/dL (12.0-16.0); LYMPHOCYTES # (AUTO) 1.2 10^3/uL (1.5-3.5); LYMPHOCYTES % (AUTO) 16.8 %; MEAN CORPUSCULAR HEMOGLOBIN 33.8 pg (27.0-31.0); MEAN CORPUSCULAR HGB CONC 34.1 g/dL (32.0-36.0); MEAN CORPUSCULAR VOLUME 99.2 fL (81.0-99.0); MONOCYTES # (AUTO) 0.7 10^3/uL (0.0-1.0); MONOCYTES % (AUTO) 10.1 %; NEUTROPHILS # (AUTO) 4.8 10^3/uL (1.5-6.6); NEUTROPHILS % (AUTO) 69.4 %; NUCLEATED RED BLOOD CELLS AUTO 0.1 /100WBC; RED BLOOD COUNT 3.53 10^6/uL (4.20-5.40); RED CELL DISTRIBUTION WIDTH 12.7 % (12.0-15.0)
[2016-12-22 06:40] LABS: ALBUMIN/GLOBULIN RATIO 0.9 (1.0-2.2); BUN - BLOOD UREA NITROGEN < 5 mg/dL (6-20); CARBON DIOXIDE - CO2 22 mmol/L (21-32); CHLORIDE 104 mmol/L (101-111); CREATININE 0.4 mg/dL (0.4-1.0); GFR - MDRD 174 (>89); GLUCOSE 95 mg/dL (70-100); LIPASE 144 U/L (22-51); MAGNESIUM 1.6 mg/dL (1.7-2.8); POTASSIUM 3.5 mmol/L (3.5-5.0); SODIUM 134 mmol/L (135-145)
--- NOTE | 2016-12-22 07:28 | Discharge Plan ---
Discharge Plan Disposition: Home, Self Care Condition: Good Prescriptions: Cholecalciferol [Vitamin D3] 5,000 unit PO BID #60 capsule Lorazepam [Ativan] 1 mg PO BID #30 tablet Magnesium Oxide [Mag Ox] 400 mg PO BID #60 tablet Saccharomyces Boulardii [Florastor] 250 mg PO BID #30 capsule Thiamine [Vitamin B-1] 100 mg PO DAILY #30 tablet Diet: Regular (low calorie) Activity Restrictions: No Restrictions Weight Bearing: Full Weight Instruction Topics: Pancreatitis Acute Dc Additional Instructions or Follow Up instructions: PLEASE TAKE ALL HOME MEDICATIONS PRESCRIBED. YOU HAVE BEEN GIVEN PRESCRIPTIONS FOR ANXIETY YOU STOP DRINKING AND FOR A PROBIOTIC TO HELP HEAL THE GI TRACT. YOU WILL NEED TO EAT A LOWER CALORIE DIET AND CONTINUE TO TAKE MAGNESIUM AND MULTI VITAMIN SINCE THE ALCOHOL ABUSE HAS WEAKENED YOUR OVERALL HEALTH. CONTINUE TO GET DAILY EXERCISE AND GET SLEEP AT NIGHT. DRINK PLENTY OF WATER DURING THE DAY AND AVOID SODA AND REFINED SUGAR PRODUCTS SEE YOUR PRIMARY CARE PROVIDER WITHIN THE WEEK. No Smoking: If you smoke, Please STOP! Call for help. Follow-up with: Jossy Mckenzie MD [Primary Care Provider] -
--- NOTE | 2016-12-22 07:35 | DISCHARGE SUMMARY ---
"Discharge Summary Admit Date: 12/20/16 Discharge Date: 12/22/16 Discharging Provider: ROSA SMILEY APRN Primary Care Provider: SHILPA ABREU MD Code Status: Attempt Resuscitation Condition at Discharge: Good Discharge Disposition: 01 Home, Self Care Discharge Facility Name: HOME - DIAGNOSES Admission Diagnoses: 1. ACUTE ABDOMINAL PAIN UPPER LEFT QUADRANTA SECONDARY TO ACUTE PANCREATITIS, UNSPECIFIED SEEN ON CT 2. ACUTE ALCOHOL USAGE WITH DEPENDENCE AND ALCOHOL INDUCED ILLNESS 3. CHRONIC INTERMITTENT ASTHMA WITHOUT EXACERBATION 4. ACUTE ON CHRONIC HYPOMAGNESIUM 5. ACUTE HYPONATREMIA 6. FATTY LIVER DISEASE WITH ALCOHOL ABUSE AND DEPENDENCE 7. ACUTE TRANSMINITIS Discharge Diagnoses with Status of Each Condition: 1. ACUTE ALCOHOL ABUSE WITH DEPENDENCE SECONDARY TO ACUTE ALCOHOL PANCREATITIS 2 CHRONIC INTERMITTENT ASTHMA WITHOUT EXACERBATION 3. ACUTE ON CHRONIC HYPOMAGNESIUM 4. ACUTE HYPONATREMIA 5. FATTY LIVER DISEASE 6. ACUTE TRANSMINITIS - HPI History of Present Illness: History of Present Illness Timing - onset: Yesterday Timing - details: Gradual onset, Still present Quality: Sharp, Stabbing Location: Epigastric Worsened by: Eating, Palpation Associated symptoms: Nausea, Vomiting. No: Fever, Hematemesis, Diarrhea, Constipation, Melena, Hematochezia Similar symptoms before: Work up / diagnostics, Treatment Recently seen: Not recently seen - Additional information Additional information: Patient is a 41 year old female with a history of alcohol abuse and pancreatitis who is presenting to the emergency department for epigastric pain. Patient states that after being diagnosed with pancreatitis she had quit drinking for awhile but recently she started up again. Patient states that she had epigastric pain starting yesterday and one episode of emesis. - CONSULTS | PROCEDURES Consultations: SOCIAL WORK FOR ALCOHOL ABUSE RESOURCES Procedures: CT OF ABDOMEN/ PELVIS- SHOWED FATTY LIVER AND PROBABLE PANCREATITIS - HOSPITAL COURSE Hospital Course: Patient was admitted for acute pancreatitis as inpatient. Her course of treatment was as follows: 1. ACUTE ALCOHOL ABUSE WITH DEPENDENCE SECONDARY TO ACUTE ALCOHOL PANCREATITIS Patient was counseled on alcohol usage and abuse and was given aggressive IVF hydration with NS and IV pain medications with morphine and dilaudid. She received IV Zofran and Phenergan for the nausea and the vomiting. Her electrolytes were monitored with daily lab draws. Her lipase was monitored daily. Her lipase improved to 131 on the day of discharge and her pain had improved to almost gone. She was on CIWA protocol for alcohol withdrawal with Ativan for agitation and withdrawal. 2 CHRONIC INTERMITTENT ASTHMA WITHOUT EXACERBATION Patient continued with supplemental oxygen 2liters NC and with inhaler home medications as needed. 3. ACUTE ON CHRONIC HYPOMAGNESIUM Patient was treated for low magnesium with vitamins and magnesium supplementation with IV and oral magnesium. Levels were monitored with daily lab draws. 4. ACUTE HYPONATREMIA Patient was given IVF NS for gentle hydration and monitored with daily lab draws. 5. FATTY LIVER DISEASE Patient was counseled on diet changes and low fat no alcohol diet. monitored LFT with daily lab draws. 6. ACUTE TRANSMINITIS Patient was counseled on diet changes and low fat no alcohol diet. monitored LFT with daily lab draws. DVT prophylaxis with Lovenox and foot pumps. She was a full code status. she was counseled on alcohol abuse and given ativan prescription for withdrawal symptoms. she was instructed to see her PCP within the week of discharge. - ALLERGIES Allergies/Adverse Reactions: Allergies Allergy/AdvReac Type Severity Reaction Status Date / Time No Known Drug Allergies Allergy Verified 02/23/16 17:22 - MEDICATIONS Home Medications: Ambulatory Orders Medication Instructions Recorded Confirmed Omeprazole [PriLOSEC] 20 mg PO DAILY 02/23/16 12/20/16 Albuterol Sulfate [Proair Hfa 1 - 2 puffs INH Q4H PRN 06/28/16 12/20/16 Inhaler] Multivitamin [Theragran] 1 tab PO DAILY 06/28/16 12/20/16 Cholecalciferol [Vitamin D3] 5,000 unit PO BID #60 capsule 12/22/16 Lorazepam [Ativan] 1 mg PO BID #30 tablet 12/22/16 Magnesium Oxide [Mag Ox] 400 mg PO BID #60 tablet 12/22/16 Saccharomyces Boulardii [Florastor] 250 mg PO BID #30 capsule 12/22/16 Thiamine [Vitamin B-1] 100 mg PO DAILY #30 tablet 12/22/16 - PHYSICAL EXAM AT DISCHARGE General Appearance: positive: No acute distress, Alert Eyes Bilateral: positive: Normal inspection, PERRL, EOMI ENT: positive: ENT inspection nml, Pharynx nml, No signs of dehydration Neck: positive: Nml inspection, Thyroid nml, No JVD, Trachea midline Respiratory: positive: Chest non-tender, No respiratory distress, Breath sounds nml Cardiovascular: positive: Regular rate & rhythm, No murmur, No gallop Peripheral Pulses: positive: 2+ Abdomen: positive: Non-tender, No organomegaly, Nml bowel sounds, No distention. negative: Guarding, Rebound Back: positive: Nml inspection Skin: positive: Color nml, No rash, Warm, Dry Extremities: positive: Non-tender, Full ROM, Nml appearance Neurologic/Psychiatric: positive: Oriented x3, CN's nml (2-12), Motor nml, Sensation nml, Mood/affect nml - LABS Result Diagrams: 12/22/16 05:51 12/22/16 05:51 Other Lab Results: Abnormal Lab Results 12/20/16 12/20/16 12/20/16 08:45 08:45 09:40 RBC 4.04 10^6/uL L 10^6/uL (4.20-5.40) Hgb Hct MCV MCH 33.4 pg H pg (27.0-31.0) Plt Count 128 10^3/uL L 10^3/uL (130-450) Neut # 7.6 10^3/uL H 10^3/uL (1.5-6.6) Lymph # 1.0 10^3/uL L 10^3/uL (1.5-3.5) Sodium Chloride BUN Glucose Estim Average Glucose Calcium Phosphorus Magnesium AST ALT Total Protein Albumin Albumin/Globulin Ratio HDL Cholesterol Lipase Ur Leukocyte Esterase MODERATE H (NEGATIVE) Urine WBC 11-25 /HPF H /HPF (0-5) Ur Squamous Epith Cells MOD Squamous H (<= Few) Urine Opiates Screen POSITIVE H (NEGATIVE) 12/20/16 12/20/16 12/21/16 09:40 09:40 05:12 RBC Hgb Hct MCV MCH Plt Count Neut # Lymph # Sodium 132 mmol/L L mmol/L (135-145) Chloride 100 mmol/L L mmol/L (101-111) BUN Glucose 120 mg/dL H mg/dL (70-100) Estim Average Glucose Calcium 7.9 mg/dL L mg/dL (8.5-10.3) Phosphorus 2.0 mg/dL L mg/dL (2.5-4.6) Magnesium 1.4 mg/dL L mg/dL (1.7-2.8) AST 86 IU/L H IU/L (10-42) ALT 108 IU/L H IU/L (10-60) Total Protein Albumin Albumin/Globulin Ratio HDL Cholesterol Lipase 1386 U/L H U/L (22-51) Ur Leukocyte Esterase Urine WBC Ur Squamous Epith Cells Urine Opiates Screen 12/21/16 12/21/16 12/21/16 05:12 05:12 05:12 RBC 3.80 10^6/uL L 10^6/uL (4.20-5.40) Hgb Hct MCV MCH 33.8 pg H pg (27.0-31.0) Plt Count 114 10^3/uL L 10^3/uL (130-450) Neut # 7.7 10^3/uL H 10^3/uL (1.5-6.6) Lymph # 0.8 10^3/uL L 10^3/uL (1.5-3.5) Sodium 131 mmol/L L mmol/L (135-145) Chloride BUN < 5 mg/dL L mg/dL (6-20) Glucose 128 mg/dL H mg/dL (70-100) Estim Average Glucose 103 H (70-100) Calcium 7.4 mg/dL L mg/dL (8.5-10.3) Phosphorus Magnesium AST 46 IU/L H IU/L (10-42) ALT 71 IU/L H IU/L (10-60) Total Protein 6.2 g/dL L g/dL (6.7-8.2) Albumin 3.1 g/dL L g/dL (3.2-5.5) Albumin/Globulin Ratio HDL Cholesterol 55 mg/dL L mg/dL (60 - ) Lipase Ur Leukocyte Esterase Urine WBC Ur Squamous Epith Cells Urine Opiates Screen 12/22/16 12/22/16 05:51 05:51 RBC 3.53 10^6/uL L 10^6/uL (4.20-5.40) Hgb 11.9 g/dL L g/dL (12.0-16.0) Hct 35.0 % L % (37.0-47.0) MCV 99.2 fL H fL (81.0-99.0) MCH 33.8 pg H pg (27.0-31.0) Plt Count 101 10^3/uL L 10^3/uL (130-450) Neut # Lymph # 1.2 10^3/uL L 10^3/uL (1.5-3.5) Sodium 134 mmol/L L mmol/L (135-145) Chloride BUN < 5 mg/dL L mg/dL (6-20) Glucose Estim Average Glucose Calcium 8.0 mg/dL L mg/dL (8.5-10.3) Phosphorus Magnesium 1.6 mg/dL L mg/dL (1.7-2.8) AST ALT Total Protein 6.0 g/dL L g/dL (6.7-8.2) Albumin 2.9 g/dL L g/dL (3.2-5.5) Albumin/Globulin Ratio 0.9 L (1.0-2.2) HDL Cholesterol Lipase 144 U/L H U/L (22-51) Ur Leukocyte Esterase Urine WBC Ur Squamous Epith Cells Urine Opiates Screen - DIAGNOSTIC IMAGING Diagnostic Imaging Results: Final report reviewed - FOLLOW UP Follow Up: PATIENT WAS INSTRUCTED TO SEE PRIMARY CARE PROVIDER WITHIN 1 WEEK OF DISCHARGE AND SHE VERBALLY UNDERSTOOD. SHE WAS GIVEN PRESCRIPTIONS FOR ATIVAN TO HELP WITH WITHDRAWAL SYMPTOMS AND FOR MULTIVITAMIN AND MAGNESIUM. SHE WAS ALSO GIVEN A PROBIOTIC. SHE IS STABLE TO BE DISCHARGED HOME WITH INSTRUCTIONS TO STOP DRINKING AND RESOURCES FOR QUITTING - TIME SPENT Time Spent in Discharge (Minutes): 45 (DISCHARGE PLANNING AND ASSESSMENT)"
[2016-12-22] MEDS ORDERED: MAGNESIUM OXIDE 400 MG TABLET PO SCH (08:00)
[2016-12-22] MEDS ORDERED: MAGNESIUM SULFATE 2 GRAM 2 GM/50 ML BAG IV SCH (08:00)
[2016-12-22 08:10] VITALS: BP 130/91
[2016-12-22] MEDS: THIAMINE 100 MG TABLET PO SCH (08:34)
[2016-12-22] MEDS: POLYETHYLENE GLYCOL 3350 17 GM PACKET PO SCH (08:34)
[2016-12-22] MEDS: NEUTRA-PHOS 250 MG TABLET PO SCH (08:34)
[2016-12-22] MEDS: PRENATAL VITAMIN TABLET PO SCH (08:35)
[2016-12-22] MEDS: CHOLECALCIFEROL 5,000 UNIT CAPSULE PO SCH (08:35)
[2016-12-22] MEDS ORDERED: DOCUSATE SODIUM 250 MG CAPSULE PO SCH (09:00)
[2016-12-22] MEDS ORDERED: SENNA 8.6 MG TABLET PO SCH (09:00)
== END 2016-12-22 12:51 | disposition home or self-care (01) | DRG 439 ==
LOC: ED 05:31 → MS2 06:59
PROVIDERS: ADMIT Nurse Practitioner; ATTEND Nurse Practitioner
DX: K85.20 Alcohol induced acute pancreatitis without necrosis or infection (principal); E87.1 Hypo-osmolality and hyponatremia; F10.20 Alcohol dependence, uncomplicated; J45.998 Other asthma; E83.42 Hypomagnesemia; E83.39 Other disorders of phosphorus metabolism; E87.6 Hypokalemia; K70.0 Alcoholic fatty liver; K21.9 Gastro-esophageal reflux disease without esophagitis; K44.9 Diaphragmatic hernia without obstruction or gangrene; F41.8 Other specified anxiety disorders; Z71.41 Alcohol abuse counseling and surveillance of alcoholic; Z86.39 Personal history of other endocrine, nutritional and metabolic disease
CPT/HCPCS: 36415; 74177; 80053; 80061; 80306; 81001; 81003; 83036; 83615; 83690; 83735; 84100; 85025; 85610; 87086; 94640; 96361; 96374; 96375; 99284; 99285

== ENCOUNTER 2017-02-04 02:57 | Inpatient (IN) | payer MEDICAID ==
[2017-02-04] MEDS ORDERED: SODIUM CHLORIDE 0.9% 1,000 ML IV ONE ×2 (03:10→03:45)
[2017-02-04] MEDS ORDERED: MORPHINE 10 MG/ML VIAL IVP STA (03:31)
[2017-02-04] MEDS ORDERED: ONDANSETRON 4 MG/2 ML VIAL IVP STA (03:31)
[2017-02-04 03:36] LABS: BASOPHILS % (AUTO) 0.1 %; EOSINOPHILS % (AUTO) 0.3 %; HCT - HEMATOCRIT 41.3 % (37.0-47.0); HGB - HEMOGLOBIN 14.4 g/dL (12.0-16.0); LYMPHOCYTES # (AUTO) 0.9 10^3/uL (1.5-3.5); LYMPHOCYTES % (AUTO) 6.7 %; MEAN CORPUSCULAR HEMOGLOBIN 33.6 pg (27.0-31.0); MEAN CORPUSCULAR HGB CONC 34.8 g/dL (32.0-36.0); MEAN CORPUSCULAR VOLUME 96.6 fL (81.0-99.0); MEAN PLATELET VOLUME 8.6 fL (7.9-10.8); MONOCYTES # (AUTO) 0.6 10^3/uL (0.0-1.0); MONOCYTES % (AUTO) 4.5 %; NEUTROPHILS # (AUTO) 11.4 10^3/uL (1.5-6.6); NEUTROPHILS % (AUTO) 88.4 %; RED BLOOD COUNT 4.27 10^6/uL (4.20-5.40); RED CELL DISTRIBUTION WIDTH 12.6 % (12.0-15.0); UNCORRECTED WHITE BLOOD COUNT 12.9 x10^3/uL; WHITE BLOOD COUNT 12.9 x10^3/uL (4.8-10.8)
--- NOTE | 2017-02-04 03:40 | ED Physician Documentation ---
PD HPI ABD PAIN - Stated complaint Stated Complaint: ABDOMINAL PAIN - Chief complaint Chief Complaint: Abd Pain - History obtained from History obtained from: Patient - History of Present Illness Timing - onset: Yesterday Timing - details: Gradual onset, Still present Quality: Aching, Sharp, Stabbing Location: Epigastric Radiation: Upper back Worsened by: Eating, Palpation Associated symptoms: Nausea, Vomiting. No: Fever, Diarrhea, Constipation Similar symptoms before: Work up / diagnostics, Treatment, Follow up Recently seen: Emergency Dept, Admitted - Additional information Additional information: Patient is a 41 year old female with a history of alcoholic pancreatitis who is presenting to the emergency department for abdominal pain. Patient states that over the holidays she has been drinking a lot which has led to the return of her symptoms yesterday. patient states that she tried to get through it, and stop drinking but she kept vomiting and the pain persisted. Review of Systems Constitutional: denies: Fever, Chills Eyes: reports: Reviewed and negative Ears: reports: Reviewed and negative Nose: reports: Reviewed and negative Throat: reports: Reviewed and negative Cardiac: denies: Chest pain / pressure, Palpitations Respiratory: denies: Dyspnea, Cough, Wheezing GI: reports: Abdominal Pain, Nausea, Vomiting. denies: Constipation, Diarrhea : denies: Dysuria, Frequency, Hesitancy, Discharge Skin: reports: Reviewed and negative Musculoskeletal: reports: Reviewed and negative Neurologic: reports: Reviewed and negative Psychiatric: denies: Depressed, Suicidal, Homicidal Immunocompromised: denies: Immunocompromised PD PAST MEDICAL HISTORY - Past Medical History Past Medical History: Yes Cardiovascular: None Respiratory: Asthma Neuro: None Endocrine/Autoimmune: None GI: GERD, Pancreatitis : None HEENT: None Psych: Depression, Anxiety Musculoskeletal: None Derm: None - Past Surgical History Past Surgical History: No - Present Medications Home Medications: Ambulatory Orders Medication Instructions Recorded Confirmed Omeprazole [PriLOSEC] 20 mg PO DAILY 02/23/16 12/20/16 Albuterol Sulfate [Proair Hfa 1 - 2 puffs INH Q4H PRN 06/28/16 12/20/16 Inhaler] Multivitamin [Theragran] 1 tab PO DAILY 06/28/16 12/20/16 Cholecalciferol [Vitamin D3] 5,000 unit PO BID #60 capsule 12/22/16 Lorazepam [Ativan] 1 mg PO BID #30 tablet 12/22/16 Magnesium Oxide [Mag Ox] 400 mg PO BID #60 tablet 12/22/16 Saccharomyces Boulardii [Florastor] 250 mg PO BID #30 capsule 12/22/16 Thiamine [Vitamin B-1] 100 mg PO DAILY #30 tablet 12/22/16 - Allergies Allergies/Adverse Reactions: Allergies Allergy/AdvReac Type Severity Reaction Status Date / Time No Known Drug Allergies Allergy Verified 02/04/17 03:09 - Social History Does the pt smoke?: No Smoking Status: Never smoker Does the pt drink ETOH?: Yes Does the pt have substance abuse?: No - Immunizations Immunizations are current?: Yes Immunizations: TDAP current <10years - POLST Patient has POLST: No PD ED PE NORMAL - Vitals Vital signs reviewed: Yes - General General: Alert and oriented X 3, No acute distress - HEENT HEENT: Atraumatic, PERRL, Pharynx benign - Neck Neck: Supple, no meningeal sign, No JVD - Cardiac Cardiac: RRR, No murmur - Respiratory Respiratory: No respiratory distress, Clear bilaterally - Abdomen Abdomen: Soft - Derm Derm: Normal color, Warm and dry, No rash - Extremities Extremities: No deformity, No edema - Neuro Neuro: Alert and oriented X 3, No motor deficit, No sensory deficit, Normal speech - Psych Psych: Normal mood PD ED PE EXPANDED - HEENT HEENT: Dry mucous membranes - Abdomen Abdomen: Tender to palpation, Epigastric. No: Rebound, Guarding Results - Vitals Vitals: Vital Signs - 24 hr 02/04/17 03:06 Temperature 36.4 C L Heart Rate 109 H Respiratory 19 Rate Blood Pressure 139/102 H O2 Saturation 98 Oxygen O2 Source Room air - Labs Labs: Laboratory Tests 02/04/17 02/04/17 03:20 03:20 WBC 12.9 H RBC 4.27 Hgb 14.4 Hct 41.3 MCV 96.6 MCH 33.6 H MCHC 34.8 RDW 12.6 Plt Count 141 MPV 8.6 Neut # 11.4 H Lymph # 0.9 L [place] # 0.6 Eos # 0.0 Baso # 0.0 Absolute Nucleated RBC 0.00 Nucleated RBC % 0.0 Sodium 130 L Potassium 3.0 L Chloride 95 L Carbon Dioxide 19 L Anion Gap 16.0 H BUN 7 Creatinine 0.6 Estimated GFR (MDRD) 109 Glucose 134 H Calcium 8.4 L Total Bilirubin 1.1 H AST 28 ALT 43 Alkaline Phosphatase 75 Total Protein 8.0 Albumin 4.0 Globulin 4.0 Albumin/Globulin Ratio 1.0 Lipase 570 H PD MEDICAL DECISION MAKING - ED course Complexity details: reviewed old records, reviewed results, re-evaluated patient , considered differential, d/w patient ED course: Patient was seen and examined at bedside. IV access was gained and labs were drawn. patient was treated with iv fluids, zofran and morphine. when patient' s labs came back she was found to have an elevated lipase of over 500. Hospitalist was contacted and the case was discussed with him. Patient was admitted for further evaluation and care. Departure - Departure Disposition: [address] [facility] DC/Julián Clinical Impression: Pancreatitis Condition: Stable
[2017-02-04] MEDS ORDERED: MORPHINE 10 MG/ML VIAL ONE (03:43)
[2017-02-04] MEDS ORDERED: ONDANSETRON 4 MG/2 ML VIAL ONE (03:43)
[2017-02-04 04:15] LABS: BILIRUBIN,TOTAL 1.1 mg/dL (0.2-1.0); CALCIUM 8.4 mg/dL (8.5-10.3); CREATININE 0.6 mg/dL (0.4-1.0)
[2017-02-04] MEDS ORDERED: ACETAMINOPHEN 325 MG TABLET PO PRN (04:41)
[2017-02-04] MEDS ORDERED: PROMETHAZINE 25 MG/1 ML VIAL IM PRN (04:41)
[2017-02-04] MEDS ORDERED: PROCHLORPERAZINE 10 MG/2 ML VIAL IVP PRN (04:41)
--- NOTE | 2017-02-04 05:11 | HISTORY & PHYSICAL EXAMINATION ---
Chief Complaint - Chief Complaint Chief Complaint: Abdominal pain History of Present Illness - Admitted From Admitted From:: Emergency department - History Obtained From Records Reviewed: Yes History obtained from: Patient Exam Limitations: None - History of Present Illness HPI Comment/Other: Patient is a 41-year-old female with a past medical history significant for asthma, alcohol abuse, history of pancreatitis with 2 previous hospitalizations , anxiety and depression who presented to the emergency department with a chief complaint of abdominal pain. Patient states that her symptoms began 2 days ago and initially she had epigastric abdominal pain radiating to the back. She states that at that time she stopped drinking and has not had another alcoholic beverage for the last 2 days. She states that her symptoms initially persisted and then progressed over the last day. She states that today she has had persistent nausea and vomited 3 times. She states that she has not been able to keep anything down including water. She states that she tried to get through the symptoms on her own by taking lots of fluid and vitamins but today as she could no longer keep fluid down she decided she should come into the emergency department. The patient otherwise also states that she has been having some chest tightness the last day or so. She denies any cough, fevers, chills. The patient states that over the holidays she has gotten into a poor routine where she has been drinking daily up until 2 days ago. She states that she was drinking quite excessively with her friends. She states that she was drinking 2 bottles of wine and shots throughout the night for the last several weeks. Prior to that she says that she did cut down on her drinking but let it get out of control over the holidays. The patient otherwise denies any headaches, blurred vision, runny nose, sore throat, nasal congestion, shortness of air, orthopnea, PND, increased lower extremity swelling, diarrhea, urinary urgency, urinary frequency, dysuria, joint pain, joint swelling, muscle aches, back pain, neck stiffness, numbness, tingling, recent unintentional weight loss or any focal neurologic deficits. On presentation to the emergency department the patient was afebrile she was tachycardic and slightly hypertensive. She did not appear to be in any respiratory distress but was in [id number] distress secondary to abdominal pain. The patient was also quite nauseated she was given a dose of Zofran and given a dose of morphine in the emergency department. The patient was given a liter of fluid and lab work did reveal that she had some hyponatremia with a sodium of 130, hypokalemia with a potassium of 3.0 and an elevated lipase of 570 consistent with acute pancreatitis which appears to be secondary to alcohol abuse. The patient also felt that she has been having some tremors the last couple of days due to some alcohol withdrawal. She states that she has never had alcohol withdrawal seizures. She has been self- medicating at home with some Ativan but ran out of Ativan today. She was admitted to the medical way for acute pancreatitis secondary to alcohol abuse. History - Past Medical History Cardiovascular: reports: None Respiratory: reports: Asthma Neuro: reports: None Endocrine/Autoimmune: reports: None GI: reports: GERD, Pancreatitis : reports: None HEENT: reports: None Psych: reports: Depression, Anxiety Musculoskeletal: reports: Osteoarthritis Derm: reports: None MRSA Hx?: No - Family & Social History Family History: Mother: Diabetes, Type 2, Father: CAD Living arrangement: At home Living Situation: With friend(s) (3 roommates) Social History Notes: Patient states that she is originally from [place], [place]. She states that she moved to [place] about 6 years ago as her ex- boyfriend was in the [place]. She currently lives in [place] with 3 roommates. She is not she has no children. 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 She states that she started drinking at the age of 23 but did not become a heavy drinker until her mid 30s. She states that her drinking progressed over the last several years and at worst she drinks up to 2-3 bottles of wine and hard liquor. She states that her drinking has gotten worse over the past several weeks due to the holidays. She denies any tobacco or illicit drug use. - POLST Patient has POLST: No POLST Status: Full Code Meds/Allgy - Home Medications Home Medications: Ambulatory Orders Medication Instructions Recorded Confirmed Omeprazole [PriLOSEC] 20 mg PO DAILY 02/23/16 12/20/16 Albuterol Sulfate [Proair Hfa 1 - 2 puffs INH Q4H PRN 06/28/16 12/20/16 Inhaler] Multivitamin [Theragran] 1 tab PO DAILY 06/28/16 12/20/16 Cholecalciferol [Vitamin D3] 5,000 unit PO BID #60 capsule 12/22/16 Lorazepam [Ativan] 1 mg PO BID #30 tablet 12/22/16 Magnesium Oxide [Mag Ox] 400 mg PO BID #60 tablet 12/22/16 Saccharomyces Boulardii [Florastor] 250 mg PO BID #30 capsule 12/22/16 Thiamine [Vitamin B-1] 100 mg PO DAILY #30 tablet 12/22/16 - Allergies Allergies/Adverse Reactions: Allergies Allergy/AdvReac Type Severity Reaction Status Date / Time No Known Drug Allergies Allergy Verified 02/04/17 03:09 Review of Systems - Other Findings Other Findings: A comprehensive review of systems was performed the pertinent positives and negatives are stated above in the HPI and the remainder of the review of systems is negative. Exam - Vital Signs Reviewed Vital Signs: Yes - Physical Exam General Appearance: positive: Alert, Mild distress (Anxious, tremulous), Anxious Eyes Bilateral: positive: Normal inspection, PERRL, EOMI, No lid inflammation, Conjunctivae nml, No scleral icterus ENT: positive: ENT inspection nml, Pharynx nml, Dry mucous membranes. negative : Purulent nasal drainage, Pharyngeal erythema, Oral lesions Neck: positive: Nml inspection, Thyroid nml, No JVD, Trachea midline. negative : Thyromegaly, Lymphadenopathy (R), Lymphadenopathy (L), Stiff neck, Carotid bruit, Tracheal deviation Respiratory: positive: Chest non-tender, No respiratory distress, Breath sounds nml. negative: Wheezes, Rales, Rhonchi Cardiovascular: positive: No murmur, No gallop, Tachycardia Peripheral Pulses: positive: 2+, Other Abdomen: positive: No organomegaly, Nml bowel sounds, No distention, Tenderness (Epigastric tenderness, throughout the upper abdomen). negative: Guarding, Rebound, Hepatomegaly, Splenomegaly Back: positive: Nml inspection. negative: CVA tenderness (R), CVA tenderness (L ) Skin: positive: Color nml, No rash, Warm, Dry. negative: Cyanosis, Diaphoresis , Pallor Extremities: positive: Non-tender, Full ROM, Nml appearance, No pedal edema Neurologic/Psychiatric: positive: Oriented x3, CN's nml (2-12), Motor nml, Sensation nml, Mood/affect nml Conclusion/Plan - Problem List (1) Pancreatitis Conclusion/Plan: Patient presents to the emergency department with epigastric abdominal pain radiating to the back. Pain is similar to her previous episodes of pancreatitis. She has been admitted to the hospital for pancreatitis on 2 previous occasions. Both times pancreatitis is secondary to alcohol abuse. She states that she has been binge drinking for the last several weeks due to the holidays. She states that she noticed the abdominal pain 2 days ago and did quit drinking but the abdominal pain has progressed and also she is having increased nausea and vomiting and unable to keep anything down. On presentation to the ER she was found to have a lipase of 570 and is quite nauseated and in significant pain. Plan: N.p.o. IV fluids IV antiemetics IV pain medication Monitor lipase and amylase No need for abdominal ultrasound at this time as her AST ALT and alk phos are all within normal limits this appears to be an obvious case of alcoholic pancreatitis Qualifiers: Chronicity: acute Pancreatitis type: alcohol induced (2) Alcohol abuse Conclusion/Plan: Patient has history of alcohol abuse and alcoholic pancreatitis. She states that she had cut down her drinking previously however over the last 2 weeks binge drank with her friends. She states that she stopped drinking 2 days ago when she began to experience abdominal pain. She does admit to having some tremors but denies any hallucinations, confusion and has never had alcohol withdrawal seizures. She did try to self medicate with Ativan and fluids at home but ran out of Ativan. Plan: Patient will be placed on alcohol withdrawal protocol She will be on CIWA we will monitor her for withdrawal and give her IV Ativan as needed Patient will receive p.o. thiamine, p.o. folic acid, p.o. magnesium and multivitamin daily (3) Hypokalemia Conclusion/Plan: Patient is hypokalemic on presentation with a potassium of 3.0. This is likely secondary to her nausea and vomiting. We will replace the patient's potassium We will monitor patient's potassium (4) Hyponatremia Conclusion/Plan: The patient has significant hyponatremia with sodium of 130. This appears to be hypovolemic hyponatremia secondary to vomiting. Patient will be given IV fluids We will continue to monitor the patient so (5) Asthma Conclusion/Plan: The patient has history of asthma but currently is stable and is not in any asthma exacerbation. We will place the patient on albuterol as needed while she is hospitalized Qualifiers: Asthma severity: mild - Lab Results Lab results reviewed: Yes Fish Bones: 02/04/17 03:20 02/04/17 03:20 Other Lab Results: Laboratory Results WBC 12.9 x10^3/uL (4.8-10.8) H 02/04/17 03:20 RBC 4.27 10^6/uL (4.20-5.40) 02/04/17 03:20 Hgb 14.4 g/dL (12.0-16.0) 02/04/17 03:20 Hct 41.3 % (37.0-47.0) 02/04/17 03:20 MCV 96.6 fL (81.0-99.0) 02/04/17 03:20 MCH 33.6 pg (27.0-31.0) H 02/04/17 03:20 MCHC 34.8 g/dL (32.0-36.0) 02/04/17 03:20 RDW 12.6 % (12.0-15.0) 02/04/17 03:20 Plt Count 141 10^3/uL (130-450) 02/04/17 03:20 MPV 8.6 fL (7.9-10.8) 02/04/17 03:20 Neut # 11.4 10^3/uL (1.5-6.6) H 02/04/17 03:20 Lymph # 0.9 10^3/uL (1.5-3.5) L 02/04/17 03:20 [place] # 0.6 10^3/uL (0.0-1.0) 02/04/17 03:20 Eos # 0.0 10^3/uL (0.0-0.7) 02/04/17 03:20 Baso # 0.0 10^3/uL (0.0-0.1) 02/04/17 03:20 Absolute Nucleated RBC 0.00 x10^3/uL 02/04/17 03:20 Nucleated RBC % 0.0 /100WBC 02/04/17 03:20 Sodium 130 mmol/L (135-145) L 02/04/17 03:20 Potassium 3.0 mmol/L (3.5-5.0) L 02/04/17 03:20 Chloride 95 mmol/L (101-111) L 02/04/17 03:20 Carbon Dioxide 19 mmol/L (21-32) L 02/04/17 03:20 Anion Gap 16.0 (6-13) H 02/04/17 03:20 BUN 7 mg/dL (6-20) 02/04/17 03:20 Creatinine 0.6 mg/dL (0.4-1.0) 02/04/17 03:20 Estimated GFR (MDRD) 109 (>89) 02/04/17 03:20 Glucose 134 mg/dL (70-100) H 02/04/17 03:20 Calcium 8.4 mg/dL (8.5-10.3) L 02/04/17 03:20 Total Bilirubin 1.1 mg/dL (0.2-1.0) H 02/04/17 03:20 AST 28 IU/L (10-42) 02/04/17 03:20 ALT 43 IU/L (10-60) 02/04/17 03:20 Alkaline Phosphatase 75 IU/L (42-121) 02/04/17 03:20 Total Protein 8.0 g/dL (6.7-8.2) 02/04/17 03:20 Albumin 4.0 g/dL (3.2-5.5) 02/04/17 03:20 Globulin 4.0 g/dL (2.1-4.2) 02/04/17 03:20 Albumin/Globulin Ratio 1.0 (1.0-2.2) 02/04/17 03:20 Lipase 570 U/L (22-51) H 02/04/17 03:20 Issues/Core Measures - Anticipated LOS Anticipated Stay Length: 2 or more midnights - DVT/VTE - Prophylaxis VTE/DVT Prophylaxis med ordered at admit?: Yes
[2017-02-04] MEDS: NS W/20 MEQ KCL 1,000 ML IV SCH ×3 (05:24→18:12)
[2017-02-04] MEDS: SODIUM CHLORIDE FLUSH 0.9% 10 ML SYRINGE IVP SCH ×3 (05:27→20:45)
[2017-02-04 05:31] LABS: BILIRUBIN,URINE NEGATIVE (NEGATIVE)
[2017-02-04 05:37] LABS: UA CHARGE (STRIP ONLY) YES; UR CULTURE IF IND NOT INDICATED
[2017-02-04] MEDS: MORPHINE 2 MG/ML SYRINGE IVP PRN ×4 (05:39→20:45)
[2017-02-04] MEDS ORDERED: MORPHINE 2 MG/ML SYRINGE ONE (05:42)
[2017-02-04 05:43] LABS: INR 1.1 (0.8-1.2); PT - PROTHROMBIN TIME 12.9 secs (9.9-12.6)
[2017-02-04 05:46] LABS: BASOPHILS % (AUTO) 0.2 %; EOSINOPHILS # (AUTO) 0.1 10^3/uL (0.0-0.7); EOSINOPHILS % (AUTO) 0.5 %; HGB - HEMOGLOBIN 13.6 g/dL (12.0-16.0); LYMPHOCYTES % (AUTO) 8.6 %; MEAN CORPUSCULAR HEMOGLOBIN 32.8 pg (27.0-31.0); MEAN CORPUSCULAR HGB CONC 33.3 g/dL (32.0-36.0); MEAN CORPUSCULAR VOLUME 98.6 fL (81.0-99.0); MEAN PLATELET VOLUME 8.4 fL (7.9-10.8); MONOCYTES # (AUTO) 0.6 10^3/uL (0.0-1.0); NEUTROPHILS # (AUTO) 10.1 10^3/uL (1.5-6.6); NEUTROPHILS % (AUTO) 85.7 %; RED BLOOD COUNT 4.16 10^6/uL (4.20-5.40); RED CELL DISTRIBUTION WIDTH 12.5 % (12.0-15.0); UNCORRECTED WHITE BLOOD COUNT 11.8 x10^3/uL; WHITE BLOOD COUNT 11.8 x10^3/uL (4.8-10.8)
[2017-02-04] MEDS: PANTOPRAZOLE 40 MG VIAL IVP SCH (06:31)
[2017-02-04] MEDS: SODIUM CHLORIDE FLUSH 0.9% 10 ML SYRINGE IVP PRN (06:31)
[2017-02-04] MEDS: LORazepam 2 MG/ML VIAL IVP PRN (06:31)
[2017-02-04 06:42] LABS: ALBUMIN/GLOBULIN RATIO 0.9 (1.0-2.2); CALCIUM 7.7 mg/dL (8.5-10.3); CREATININE 0.5 mg/dL (0.4-1.0); MAGNESIUM 1.7 mg/dL (1.7-2.8); PHOSPHORUS 3.2 mg/dL (2.5-4.6); POTASSIUM 3.2 mmol/L (3.5-5.0); TOTAL PROTEIN 7.6 g/dL (6.7-8.2)
[2017-02-04] MEDS: oxyCODONE 5 MG TABLET PO PRN ×2 (07:35→16:33)
[2017-02-04] MEDS ORDERED: MULTIVITAMIN TABLET PO SCH (09:00)
[2017-02-04] MEDS ORDERED: THIAMINE 100 MG TABLET PO SCH (09:00)
[2017-02-04] MEDS: MAGNESIUM OXIDE 400 MG TABLET PO SCH ×2 (11:00→20:45)
[2017-02-04] MEDS: ONDANSETRON 4 MG/2 ML VIAL IVP PRN (11:01)
[2017-02-04] MEDS: LORazepam 0.5 MG TABLET PO SCH ×2 (11:04→20:44)
[2017-02-04] MEDS: PRENATAL VITAMIN TABLET PO SCH (11:05)
[2017-02-04] MEDS: THIAMINE 100 MG TABLET PO SCH (11:05)
[2017-02-04] MEDS: POLYETHYLENE GLYCOL 3350 17 GM PACKET PO SCH (11:06)
[2017-02-04] MEDS: ENOXAPARIN 40 MG/0.4 ML SYRINGE SUBQ SCH (11:06)
[2017-02-05] MEDS: oxyCODONE 5 MG TABLET PO PRN ×6 (00:07→23:55)
[2017-02-05] MEDS: ONDANSETRON 4 MG/2 ML VIAL IVP PRN (00:07)
[2017-02-05] MEDS: NS W/20 MEQ KCL 1,000 ML IV SCH ×4 (00:35→20:43)
[2017-02-05] MEDS: MORPHINE 2 MG/ML SYRINGE IVP PRN ×2 (04:35→23:55)
[2017-02-05 05:53] LABS: BASOPHILS % (AUTO) 0.7 %; EOSINOPHILS # (AUTO) 0.3 10^3/uL (0.0-0.7); EOSINOPHILS % (AUTO) 4.1 %; HCT - HEMATOCRIT 38.2 % (37.0-47.0); HGB - HEMOGLOBIN 12.9 g/dL (12.0-16.0); LYMPHOCYTES # (AUTO) 1.3 10^3/uL (1.5-3.5); LYMPHOCYTES % (AUTO) 18.5 %; MEAN CORPUSCULAR HEMOGLOBIN 33.5 pg (27.0-31.0); MEAN CORPUSCULAR HGB CONC 33.8 g/dL (32.0-36.0); MEAN PLATELET VOLUME 8.4 fL (7.9-10.8); MONOCYTES # (AUTO) 0.6 10^3/uL (0.0-1.0); MONOCYTES % (AUTO) 8.1 %; NEUTROPHILS # (AUTO) 4.8 10^3/uL (1.5-6.6); NEUTROPHILS % (AUTO) 68.6 %; RED BLOOD COUNT 3.86 10^6/uL (4.20-5.40); RED CELL DISTRIBUTION WIDTH 12.4 % (12.0-15.0); UNCORRECTED WHITE BLOOD COUNT 7.1 x10^3/uL; WHITE BLOOD COUNT 7.1 x10^3/uL (4.8-10.8)
[2017-02-05] MEDS: SODIUM CHLORIDE FLUSH 0.9% 10 ML SYRINGE IVP SCH ×3 (06:05→20:43)
[2017-02-05 06:06] LABS: ALBUMIN/GLOBULIN RATIO 0.8 (1.0-2.2); AMYLASE 71 U/L (28-100); BILIRUBIN,TOTAL 1.1 mg/dL (0.2-1.0); BUN - BLOOD UREA NITROGEN < 5 mg/dL (6-20); CALCIUM 7.9 mg/dL (8.5-10.3); CARBON DIOXIDE - CO2 15 mmol/L (21-32); CHLORIDE 104 mmol/L (101-111); CREATININE 0.5 mg/dL (0.4-1.0); GFR - MDRD 135 (>89); GLUCOSE 80 mg/dL (70-100); LIPASE 96 U/L (22-51); MAGNESIUM 1.7 mg/dL (1.7-2.8); PHOSPHORUS 1.9 mg/dL (2.5-4.6); POTASSIUM 4.1 mmol/L (3.5-5.0); SODIUM 129 mmol/L (135-145); TOTAL PROTEIN 7.2 g/dL (6.7-8.2)
[2017-02-05] MEDS: PANTOPRAZOLE 40 MG VIAL IVP SCH (06:06)
[2017-02-05] MEDS: THIAMINE 100 MG TABLET PO SCH (08:33)
[2017-02-05] MEDS: LORazepam 0.5 MG TABLET PO SCH ×3 (08:33→20:42)
[2017-02-05] MEDS: MAGNESIUM OXIDE 400 MG TABLET PO SCH ×2 (08:33→20:42)
[2017-02-05] MEDS: ENOXAPARIN 40 MG/0.4 ML SYRINGE SUBQ SCH (08:33)
[2017-02-05] MEDS: PRENATAL VITAMIN TABLET PO SCH (08:34)
[2017-02-05] MEDS: POLYETHYLENE GLYCOL 3350 17 GM PACKET PO SCH (08:34)
[2017-02-05] MEDS: SODIUM CHLORIDE FLUSH 0.9% 10 ML SYRINGE IVP PRN ×3 (09:11→23:55)
--- NOTE | 2017-02-05 16:34 | PROVIDER PROGRESS NOTE ---
Assessment/Plan - Problem List (1) Alcohol induced acute pancreatitis without necrosis or infection Assessment/Plan: Amylase and Lipase are improving. Abd pain improving. N/V resolved. Will addvance diet to clears then soft. Poss DCh tomorrow. (2) Anxiety Assessment/Plan: Ativan will be increased temporarily for poss. alcohol withdrawl. (3) Hyponatremia Assessment/Plan: Likely from chronic alcohol intake plus recent vomiting. Continue iv saline until pt able to eat and adequately hydrate orally. - Current Meds Current Meds: Current Medications Generic Name Dose Route Start Last Admin Trade Name Freq PRN Reason Stop Dose Admin Enoxaparin Sodium 40 mg 02/04/17 09:00 02/05/17 08:33 Lovenox SUBQ 40 mg DAILY WARREN Administration Potassium Chloride/Sodium Chloride 1,000 mls @ 150 mls/hr 02/04/17 05:00 08/17 13:53 Normal Saline 0.9% W/20 Meq Kcl IV 150 mls/hr .Q6H40M WARREN Administration Lorazepam 1 mg 02/04/17 04:41 02/04/17 06:31 Ativan Inj (Vial) IVP 1 mg Q30M PRN Administration CIWA >8 Protocol Lorazepam 1 mg 02/05/17 14:00 02/05/17 13:52 Ativan PO 1 mg TID WARREN Administration Magnesium Oxide 400 mg 02/04/17 09:00 02/05/17 08:33 Mag Ox PO 400 mg BID WARREN Administration Morphine Sulfate 2 mg 02/04/17 04:41 02/05/17 04:35 Morphine IVP 2 mg Q2H PRN Administration Pain 8 to 10 Ondansetron HCl 4 mg 02/04/17 04:41 02/05/17 00:07 Zofran Inj IVP 4 mg Q6HR PRN Administration Nausea / Vomiting Oxycodone HCl 5 mg 02/04/17 04:41 02/05/17 06:05 Roxicodone PO 5 mg Q4HR PRN Administration Pain 5 to 7 Oxycodone HCl 10 mg 02/04/17 04:41 02/05/17 14:56 Roxicodone PO 10 mg Q4HR PRN Administration Pain 8 to 10 Pantoprazole Sodium 40 mg 02/04/17 07:00 02/05/17 06:06 Protonix IVP 40 mg QDAC WARREN Administration Polyethylene Glycol 17 gm 02/04/17 09:00 02/05/17 08:34 Miralax PO Not Given DAILY WARREN Multivit/Folic Acid/Iron 1 tab 02/04/17 09:00 02/05/17 08:34 Trinatal Rx 1 PO 1 tab DAILY WARREN Administration Prochlorperazine Edisylate 10 mg 02/04/17 04:41 02/04/17 07:34 Compazine Inj IVP 10 mg Q6HR PRN Administration Nausea / Vomiting Sodium Chloride 10 ml 02/04/17 04:41 02/05/17 09:40 Normal Saline Flush 0.9% IVP 10 ml PRN PRN Administration NEEDED PER PROVIDER ORDERS Sodium Chloride 10 ml 02/04/17 06:00 02/05/17 13:14 Normal Saline Flush 0.9% IVP Not Given Q8HR WARREN Thiamine HCl 100 mg 02/04/17 09:00 02/05/17 08:33 Vitamin B-1 PO 100 mg DAILY WARREN Administration - Lab Result Fish Bone Diagrams: 02/05/17 05:44 02/05/17 05:44 - Additional Planning My Orders: My Active Orders 02/05/17 14:00 LORazepam [Ativan] 1 mg PO TID 02/05/17 Dinner DIET [Soft (Low Fiber) Diet] [DIET] Subjective - Subjective Patient Reports: Feeling Better Nursing Reports: Pain (The patient still reports abdominal pain which is mostly in her back now, rated 5 out of 10 and she requests all her pain medications unscheduled yet), Other (Patient appears tremulous, possibly anxious.) Objective Vital Signs: Vital Signs - 24 hr 02/04/17 02/04/17 02/04/17 17:44 20:06 20:14 Temperature 36.7 C Heart Rate [ 95 87 Brachial] Heart Rate [ 90 Radial] Respiratory 16 Rate Blood Pressure [Left Brachial artery] Blood Pressure 137/97 H 152/108 H 148/118 H [Right Brachial artery] O2 Saturation 98 02/05/17 02/05/17 02/05/17 00:25 05:45 06:20 Temperature 36.7 C 36.9 C Heart Rate [ 75 Brachial] Heart Rate [ 82 87 Radial] Respiratory 16 16 Rate Blood Pressure 144/103 H [Left Brachial artery] Blood Pressure 131/94 H 145/97 H [Right Brachial artery] O2 Saturation 98 98 02/05/17 02/05/17 07:37 15:42 Temperature 36.6 C 37.1 C Heart Rate [ Brachial] Heart Rate [ 79 84 Radial] Respiratory 18 16 Rate Blood Pressure [Left Brachial artery] Blood Pressure 131/92 H 131/90 H [Right Brachial artery] O2 Saturation 97 98 Oxygen O2 Source Room air I&O (Last 24 Hrs): Intake and Output Totals x24h 02/03/17 02/04/17 02/05/17 23:59 23:59 23:59 Intake Total 4040 3812.5 Output Total 3450 4200 Balance 590 -387.5 General: Alert, Oriented x3 HEENT: Mucous membr. moist/pink Neck: Supple Neuro: Alert Cardiovascular: Regular rate, No murmurs Respiratory: No respiratory distress Abdomen: Soft, No tenderness Extremities: No edema Skin: No rashes - Results Results: Laboratory Results WBC 7.1 x10^3/uL (4.8-10.8) 02/05/17 05:44 RBC 3.86 10^6/uL (4.20-5.40) L 02/05/17 05:44 Hgb 12.9 g/dL (12.0-16.0) 02/05/17 05:44 Hct 38.2 % (37.0-47.0) 02/05/17 05:44 MCV 99.0 fL (81.0-99.0) 02/05/17 05:44 MCH 33.5 pg (27.0-31.0) H 02/05/17 05:44 MCHC 33.8 g/dL (32.0-36.0) 02/05/17 05:44 RDW 12.4 % (12.0-15.0) 02/05/17 05:44 Plt Count 129 10^3/uL (130-450) L 02/05/17 05:44 MPV 8.4 fL (7.9-10.8) 02/05/17 05:44 Neut # 4.8 10^3/uL (1.5-6.6) 02/05/17 05:44 Lymph # 1.3 10^3/uL (1.5-3.5) L 02/05/17 05:44 [place] # 0.6 10^3/uL (0.0-1.0) 02/05/17 05:44 Eos # 0.3 10^3/uL (0.0-0.7) 02/05/17 05:44 Baso # 0.0 10^3/uL (0.0-0.1) 02/05/17 05:44 Absolute Nucleated RBC 0.00 x10^3/uL 02/05/17 05:44 Nucleated RBC % 0.0 /100WBC 02/05/17 05:44 PT 12.9 secs (9.9-12.6) H 02/04/17 05:30 INR 1.1 (0.8-1.2) 02/04/17 05:30 Sodium 129 mmol/L (135-145) L 02/05/17 05:44 Potassium 4.1 mmol/L (3.5-5.0) 02/05/17 05:44 Chloride 104 mmol/L (101-111) 02/05/17 05:44 Carbon Dioxide 15 mmol/L (21-32) L 02/05/17 05:44 Anion Gap 10.0 (6-13) 02/05/17 05:44 BUN < 5 mg/dL (6-20) L 02/05/17 05:44 Creatinine 0.5 mg/dL (0.4-1.0) 02/05/17 05:44 Estimated GFR (MDRD) 135 (>89) 02/05/17 05:44 Glucose 80 mg/dL (70-100) 02/05/17 05:44 Calcium 7.9 mg/dL (8.5-10.3) L 02/05/17 05:44 Phosphorus 1.9 mg/dL (2.5-4.6) L 02/05/17 05:44 Magnesium 1.7 mg/dL (1.7-2.8) 02/05/17 05:44 Total Bilirubin 1.1 mg/dL (0.2-1.0) H 02/05/17 05:44 AST 25 IU/L (10-42) 02/05/17 05:44 ALT 33 IU/L (10-60) 02/05/17 05:44 Alkaline Phosphatase 66 IU/L (42-121) 02/05/17 05:44 Total Protein 7.2 g/dL (6.7-8.2) 02/05/17 05:44 Albumin 3.3 g/dL (3.2-5.5) 02/05/17 05:44 Globulin 3.9 g/dL (2.1-4.2) 02/05/17 05:44 Albumin/Globulin Ratio 0.8 (1.0-2.2) L 02/05/17 05:44 Amylase 71 U/L (28-100) 02/05/17 05:44 Lipase 96 U/L (22-51) H 02/05/17 05:44 Urine Color YELLOW 02/04/17 05:27 Urine Clarity CLEAR (CLEAR) 02/04/17 05:27 Urine pH 6.0 PH (5.0-7.5) 02/04/17 05:27 Ur Specific [place] 1.015 (1.002-1.030) 02/04/17 05:27 Urine Protein NEGATIVE mg/dL (NEGATIVE) 02/04/17 05:27 Urine Glucose (UA) NEGATIVE mg/dL (NEGATIVE) 02/04/17 05:27 Urine Ketones >=80 mg/dL (NEGATIVE) H 02/04/17 05:27 Urine Occult Blood NEGATIVE (NEGATIVE) 02/04/17 05:27 Urine Nitrite NEGATIVE (NEGATIVE) 02/04/17 05:27 Urine Bilirubin NEGATIVE (NEGATIVE) 02/04/17 05:27 Urine Urobilinogen 0.2 (NORMAL) E.U./dL (NORMAL) 02/04/17 05:27 Ur Leukocyte Esterase NEGATIVE (NEGATIVE) 02/04/17 05:27 Ur Microscopic Review NOT INDICATED 02/04/17 05:27 Urine Culture Comments NOT INDICATED 02/04/17 05:27
[2017-02-06] MEDS: LORazepam 2 MG/ML VIAL IVP PRN (02:23)
[2017-02-06] MEDS: NS W/20 MEQ KCL 1,000 ML IV SCH (03:01)
[2017-02-06] MEDS: oxyCODONE 5 MG TABLET PO PRN (05:01)
[2017-02-06 06:02] LABS: BASOPHILS % (AUTO) 0.7 %; EOSINOPHILS # (AUTO) 0.3 10^3/uL (0.0-0.7); EOSINOPHILS % (AUTO) 5.2 %; HCT - HEMATOCRIT 38.5 % (37.0-47.0); HGB - HEMOGLOBIN 13.1 g/dL (12.0-16.0); LYMPHOCYTES # (AUTO) 1.6 10^3/uL (1.5-3.5); LYMPHOCYTES % (AUTO) 29.3 %; MEAN CORPUSCULAR HEMOGLOBIN 33.7 pg (27.0-31.0); MEAN CORPUSCULAR HGB CONC 34.1 g/dL (32.0-36.0); MEAN CORPUSCULAR VOLUME 98.8 fL (81.0-99.0); MONOCYTES # (AUTO) 0.5 10^3/uL (0.0-1.0); MONOCYTES % (AUTO) 8.3 %; NEUTROPHILS # (AUTO) 3.1 10^3/uL (1.5-6.6); NEUTROPHILS % (AUTO) 56.5 %; RED CELL DISTRIBUTION WIDTH 12.9 % (12.0-15.0); UNCORRECTED WHITE BLOOD COUNT 5.5 x10^3/uL; WHITE BLOOD COUNT 5.5 x10^3/uL (4.8-10.8)
[2017-02-06 06:14] LABS: ALBUMIN/GLOBULIN RATIO 0.8 (1.0-2.2); BILIRUBIN,TOTAL 0.8 mg/dL (0.2-1.0); CALCIUM 8.9 mg/dL (8.5-10.3); CREATININE 0.5 mg/dL (0.4-1.0); MAGNESIUM 1.8 mg/dL (1.7-2.8); PHOSPHORUS 2.5 mg/dL (2.5-4.6); TOTAL PROTEIN 7.2 g/dL (6.7-8.2)
[2017-02-06] MEDS: LORazepam 0.5 MG TABLET PO SCH (06:23)
[2017-02-06] MEDS: PANTOPRAZOLE 40 MG VIAL IVP SCH (06:24)
[2017-02-06] MEDS: SODIUM CHLORIDE FLUSH 0.9% 10 ML SYRINGE IVP SCH (06:24)
[2017-02-06 08:53] VITALS: BP 131/92
[2017-02-06] MEDS: POLYETHYLENE GLYCOL 3350 17 GM PACKET PO SCH (09:16)
[2017-02-06] MEDS: ENOXAPARIN 40 MG/0.4 ML SYRINGE SUBQ SCH (09:17)
[2017-02-06] MEDS: THIAMINE 100 MG TABLET PO SCH (09:17)
[2017-02-06] MEDS: PRENATAL VITAMIN TABLET PO SCH (09:17)
[2017-02-06] MEDS: MAGNESIUM OXIDE 400 MG TABLET PO SCH (09:17)
--- NOTE | 2017-02-06 11:18 | Discharge Plan ---
Discharge Plan Disposition: Home, Self Care Condition: Stable Prescriptions: oxyCODONE [Roxicodone] 5 mg PO Q4HR PRN #14 tablet PRN Reason: Pain 5 to 7 Albuterol Sulfate [Proair Hfa Inhaler] 1 - 2 puffs INH Q4H PRN #1 hfa.aer.ad PRN Reason: SOA LORazepam [Ativan] 1 mg PO TID #21 tablet Diet: Regular Activity Restrictions: Activity as Tolerated Shower Restrictions: No Driving Restrictions: No Instruction Topics: Pancreatitis, Pancreatitis Acute Dc, Pancreatitis Chronic Dc, Alcoholism Additional Instructions or Follow Up instructions: Abstain from binge drinking alcohol which will cause the pancreatitis to recur. Use the pain medications for pain relief. If you require more, see your Primary Care Provider. No Smoking: If you smoke, Please STOP! Call for help. Follow-up with: Jossy Mckenzie MD [Primary Care Provider] -
--- NOTE | 2017-02-06 18:45 | DISCHARGE SUMMARY ---
DATE OF ADMISSION: 02/04/2017 DATE OF DISCHARGE: 02/06/2017 This is a 41-year-old white female with a history of previous several admission for acute pancreatitis due to alcohol bingeing. HPI: The patient was admitted, after bingeing alcohol, with abdominal pain, unable to keep food down for 2 days and nausea and vomiting. She was admitted for management of these symptoms with a recurrence of alcoholic pancreatitis. HOSPITAL COURSE AND DISCHARGE DIAGNOSES: 1. Alcoholic pancreatitis without necrosis. The patient's admission lipase level was 570, this decreased to 490 and at the time of discharge it was 69. Her amylase went from 204 down to 47 at the time of discharge. The patient required IV hydration, potassium replacement for potassium level of 3.0 and pain management for her abdominal pain which radiated through to the back. She required p.r.n. antiemetics and on day 3 was able to start clear liquids, which advanced to full solid diet without any further nausea or vomiting and adequate relief of pain, using pain medications. She was felt to be stable for discharge on 02/06/2017, advised not to partake in drinking alcohol or bingeing alcohol, and given a 3-day prescription for oral pain medications if needed. 2. Alcohol excess/bingeing. I discussed the importance of discontinuing this habit with the patient. She was interested in stopping and felt that she had the support system to do this. 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 The patient was given a release from work from 02/04/2017-02/06/2017 but was felt to be stable for return to work on 02/07/2017. LABS AND IMAGING: reviewed and as above. PHYSICAL EXAMINATION AT THE TIME OF DISCHARGE: Blood Pressure 130/90, heart rate of 88 and sinus rhythm and the rest of the physical exam was unremarkable with a soft abdomen, with positive bowel sounds and no organomegaly. MEDICATIONS AT DISCHARGE: 1. Oxycodone 5 mg p.o. q.4h. p.r.n. 2. Albuterol inhaler p.r.n. 3. Zyrtec. 4. IBUPROFEN. 5. Ativan. 6. Magnesium oxide 400 mg b.i.d. 7. Prilosec 20 mg daily. 8. Thiamine vitamin 100 mg daily. ALLERGIES: NONE. Follow-up: with her PCP as needed for medical management. Time required to complete this entire discharge : 30 MINUTES. JOB #: [id number] EXT JOB #:[id number] CYRUS
== END 2017-02-06 12:30 | disposition home or self-care (01) | DRG 439 ==
LOC: ED 02:57 → MS2 04:41
PROVIDERS: ADMIT Internal Medicine; ATTEND Internal Medicine
DX: K85.20 Alcohol induced acute pancreatitis without necrosis or infection (principal); E87.1 Hypo-osmolality and hyponatremia; F10.10 Alcohol abuse, uncomplicated; Y90.8 Blood alcohol level of 240 mg/100 ml or more; E87.6 Hypokalemia; E86.1 Hypovolemia; J45.909 Unspecified asthma, uncomplicated; F32.9 Major depressive disorder, single episode, unspecified; F41.9 Anxiety disorder, unspecified; K21.9 Gastro-esophageal reflux disease without esophagitis; M19.90 Unspecified osteoarthritis, unspecified site; Z79.51 Long term (current) use of inhaled steroids; Z79.899 Other long term (current) drug therapy
CPT/HCPCS: 36415; 80053; 81001; 81003; 82150; 83690; 83735; 84100; 85025; 85610; 87086; 96361; 96374; 96375; 99284; 99285

== ENCOUNTER 2017-03-12 04:28 | Emergency (ER) | payer MEDICAID ==
--- NOTE | 2017-03-12 04:34 | ED Physician Documentation ---
PD HPI ABD PAIN - Stated complaint Stated Complaint: ABDOMINAL PAIN,NAUSEA - Chief complaint Chief Complaint: Abd Pain - History obtained from History obtained from: Patient - History of Present Illness Timing - onset: Yesterday Timing - details: Gradual onset, Constant, Waxing and waning Pain level now: 8 Quality: Pain Location: Epigastric Radiation: Other (no radiation) Improved by: Laying still Worsened by: Breathing Associated symptoms: Nausea, Vomiting. No: Fever, Diarrhea, Constipation Similar symptoms before: Diagnosis (similar to previous episodes of pancreatitis ) Recently seen: Other (T+R from [facility] for pancreatitis last month) - Additional information Additional information: "My pancreatitis is flaring up again", per patient. Epigastric pain, nausea, vomiting since yesterday. Last alcohol drink was yesterday, approximately 5th day in a row. Review of Systems Constitutional: denies: Fever, Chills, Sweats Cardiac: reports: Reviewed and negative Respiratory: reports: Reviewed and negative GI: reports: Abdominal Pain, Nausea, Vomiting : denies: Dysuria, Frequency Musculoskeletal: reports: Reviewed and negative Neurologic: denies: Generalized weakness, Focal weakness PD PAST MEDICAL HISTORY - Past Medical History Cardiovascular: None Respiratory: Asthma Neuro: None Endocrine/Autoimmune: None GI: GERD, Pancreatitis : None HEENT: None Psych: Depression, Anxiety Musculoskeletal: Osteoarthritis Derm: None - Past Surgical History Past Surgical History: No - Present Medications Home Medications: Ambulatory Orders Medication Instructions Recorded Confirmed Omeprazole [PriLOSEC] 20 mg PO DAILY 02/23/16 03/12/17 Cetirizine [ZyrTEC] 10 mg PO PRN PRN 02/04/17 03/12/17 Ibuprofen 200 - 800 mg PO PRN PRN 02/04/17 03/12/17 Albuterol Sulfate [Proair Hfa 1 - 2 puffs INH Q4H PRN #1 02/06/17 03/12/17 Inhaler] hfa.aer.ad LORazepam [Ativan] 1 mg PO TID #21 tablet 02/06/17 03/12/17 Magnesium Oxide [Mag Ox] 400 mg PO BID tablet 02/06/17 03/12/17 Thiamine [Vitamin B-1] 100 mg PO DAILY tablet 02/06/17 03/12/17 oxyCODONE [Roxicodone] 5 mg PO Q4HR PRN #14 tablet 02/06/17 03/12/17 Lorazepam [Ativan] 1 mg PO TID PRN #14 tablet 03/12/17 Ondansetron Odt [Zofran] 4 mg TL Q6H PRN #20 tablet 03/12/17 oxyCODONE [Roxicodone] 5 - 10 mg PO Q6H PRN #20 tablet 03/12/17 - Allergies Allergies/Adverse Reactions: Allergies Allergy/AdvReac Type Severity Reaction Status Date / Time No Known Drug Allergies Allergy Verified 03/12/17 04:32 - Social History Does the pt smoke?: No Smoking Status: Never smoker Does the pt drink ETOH?: Yes Does the pt have substance abuse?: No - Immunizations Immunizations are current?: Yes Immunizations: TDAP current <10years - POLST Patient has POLST: No POLST Status: Full Code PD ED PE NORMAL - Vitals Vital signs reviewed: Yes - General General: Alert and oriented X 3, No acute distress, Well developed/nourished - HEENT HEENT: Moist mucous membranes - Neck Neck: Supple, no meningeal sign - Cardiac Cardiac: RRR, No murmur - Respiratory Respiratory: No respiratory distress, Clear bilaterally - Abdomen Abdomen: Soft, Non distended, Other (moderate epigastric tenderness without rebound or guarding) - Back Back: No CVA TTP - Derm Derm: Normal color, Warm and dry - Extremities Extremities: No edema - Neuro Neuro: Alert and oriented X 3 Results - Vitals Vitals: Vital Signs - 24 hr 03/12/17 03/12/17 03/12/17 04:32 05:49 06:02 Temperature 36.7 C Heart Rate 92 70 72 Respiratory 18 16 14 Rate Blood Pressure 144/101 H 127/95 H 131/97 H O2 Saturation 100 100 98 03/12/17 03/12/17 07:00 07:16 Temperature 36.3 C L Heart Rate 93 73 Respiratory 16 16 Rate Blood Pressure 134/105 H 125/91 H O2 Saturation 97 98 Oxygen O2 Source Room air - Labs Labs: Laboratory Tests 03/12/17 03/12/17 03/12/17 04:43 04:43 05:53 WBC 8.5 RBC 4.42 Hgb 14.5 Hct 42.4 MCV 95.9 MCH 32.9 H MCHC 34.3 RDW 12.8 Plt Count 169 MPV 8.0 Neut # 6.4 Lymph # 1.3 L [place] # 0.6 Eos # 0.1 Baso # 0.0 Absolute Nucleated RBC 0.01 Nucleated RBC % 0.1 Sodium 135 Potassium 3.4 L Chloride 98 L Carbon Dioxide 21 Anion Gap 16.0 H BUN 8 Creatinine 0.6 Estimated GFR (MDRD) 109 Glucose 130 H Calcium 8.9 Total Bilirubin 1.4 H AST 69 H ALT 57 Alkaline Phosphatase 71 Total Protein 8.1 Albumin 4.2 Globulin 3.9 Albumin/Globulin Ratio 1.1 Amylase 332 H Lipase 710 H Urine Color DARK YELLOW Urine Clarity BLOODY Urine pH 6.0 Ur Specific [place] 1.015 Urine Protein TRACE Urine Glucose (UA) NEGATIVE Urine Ketones NEGATIVE Urine Occult Blood LARGE H Urine Nitrite NEGATIVE Urine Bilirubin NEGATIVE Urine Urobilinogen 0.2 (NORMAL) Ur Leukocyte Esterase NEGATIVE Urine RBC TNTC H Urine WBC 0-3 Ur Squamous Epith Cells FEW Squamous Urine Bacteria None Seen Ur Microscopic Review INDICATED Urine Culture Comments NOT INDICATED Urine HCG, Qual NEGATIVE PD MEDICAL DECISION MAKING - ED course Complexity details: reviewed old records, reviewed results, re-evaluated patient , considered differential, d/w patient ED course: Patient had good relief with 1mg Dilaudid and 4mg IV zofran, as well as 2liters IV fluid. Elevated amylase lipase, although she appears comfortable, abdominal exam reveals mild epigastric tenderness without rebound or guarding. I offered admission but opined that she would be appropriate for discharge and return if worse, bland diet and graduate every 12-24 hours to thicker foods in bigger portions. She is comfortable with this plan. Departure - Departure Disposition: 01 Home, Self Care Clinical Impression: Pancreatitis Condition: Good Instructions: ED Pancreatitis Follow-Up: [facility] [Provider Group] [facility] [Provider Group] Prescriptions: Lorazepam [Ativan] 1 mg PO TID PRN #14 tablet PRN Reason: Anxiety Ondansetron Odt [Zofran] 4 mg TL Q6H PRN #20 tablet PRN Reason: Nausea / Vomiting oxyCODONE [Roxicodone] 5 - 10 mg PO Q6H PRN #20 tablet PRN Reason: Pain Forms: Activity restrictions Discharge Date/Time: 03/12/17 07:18
[2017-03-12] MEDS ORDERED: HYDROmorphone 1 MG/ML SYRINGE IVP STA ×2 (04:57→07:00)
[2017-03-12] MEDS ORDERED: ONDANSETRON 4 MG/2 ML VIAL IVP STA ×2 (04:57→06:56)
[2017-03-12] MEDS ORDERED: SODIUM CHLORIDE 0.9% 1,000 ML IV STA ×2 (04:57→06:04)
[2017-03-12 05:10] LABS: BASOPHILS % (AUTO) 0.5 %; EOSINOPHILS # (AUTO) 0.1 10^3/uL (0.0-0.7); EOSINOPHILS % (AUTO) 1.1 %; HGB - HEMOGLOBIN 14.5 g/dL (12.0-16.0); LYMPHOCYTES # (AUTO) 1.3 10^3/uL (1.5-3.5); LYMPHOCYTES % (AUTO) 15.8 %; MEAN CORPUSCULAR HEMOGLOBIN 32.9 pg (27.0-31.0); MEAN CORPUSCULAR HGB CONC 34.3 g/dL (32.0-36.0); MEAN CORPUSCULAR VOLUME 95.9 fL (81.0-99.0); MONOCYTES # (AUTO) 0.6 10^3/uL (0.0-1.0); MONOCYTES % (AUTO) 6.7 %; NEUTROPHILS # (AUTO) 6.4 10^3/uL (1.5-6.6); NEUTROPHILS % (AUTO) 75.9 %; PLT - PLATELET COUNT 169 10^3/uL (130-450); RED BLOOD COUNT 4.42 10^6/uL (4.20-5.40); RED CELL DISTRIBUTION WIDTH 12.8 % (12.0-15.0); WHITE BLOOD COUNT 8.5 x10^3/uL (4.8-10.8)
[2017-03-12 05:34] LABS: ALBUMIN 4.2 g/dL (3.2-5.5); ALBUMIN/GLOBULIN RATIO 1.1 (1.0-2.2); BILIRUBIN,TOTAL 1.4 mg/dL (0.2-1.0); CALCIUM 8.9 mg/dL (8.5-10.3); CREATININE 0.6 mg/dL (0.4-1.0); TOTAL PROTEIN 8.1 g/dL (6.7-8.2)
[2017-03-12 06:07] LABS: BILIRUBIN,URINE NEGATIVE (NEGATIVE); GLUCOSE, URINE (UA) NEGATIVE (NEGATIVE); KETONES,URINE (UA) NEGATIVE (NEGATIVE); LEUKOCYTE ESTERASE, URINE NEGATIVE (NEGATIVE); NITRITE,URINE NEGATIVE (NEGATIVE); OCCULT BLOOD,URINE LARGE (NEGATIVE); PROTEIN,URINE TRACE mg/dL (NEGATIVE); UROBILINOGEN,URINE 0.2 (NORMAL) E.U./dL (NORMAL)
[2017-03-12 06:10] LABS: BACTERIA,URINE None Seen /HPF (None Seen); CLARITY,URINE BLOODY (CLEAR); HCG UR QUAL NEGATIVE; RBC,URINE TNTC /HPF (0-5); SQUAMOUS EPITHELIAL CELL,UR FEW Squamous (<= Few)
[2017-03-12 07:18] VITALS: BP 125/91
== END 2017-03-12 07:18 | disposition home or self-care (01) ==
LOC: ED 04:28
DX: K85.90 Acute pancreatitis without necrosis or infection, unspecified (principal); K21.9 Gastro-esophageal reflux disease without esophagitis
CPT/HCPCS: 36415; 80053; 81001; 81025; 82150; 83690; 85025; 96361; 96374; 96375; 96376; 99284; J1170; 81003; 87086

== ENCOUNTER 2017-05-27 09:05 | Observation (INO) | payer MEDICAID ==
[2017-05-27 09:30] LABS: GLUCOSE, URINE (UA) NEGATIVE (NEGATIVE); KETONES,URINE (UA) >=80 mg/dL (NEGATIVE); LEUKOCYTE ESTERASE, URINE NEGATIVE (NEGATIVE); NITRITE,URINE NEGATIVE (NEGATIVE); OCCULT BLOOD,URINE NEGATIVE (NEGATIVE); PH,URINE 5.5 PH (5.0-7.5); PROTEIN,URINE TRACE mg/dL (NEGATIVE); UROBILINOGEN,URINE 0.2 (NORMAL) E.U./dL (NORMAL)
[2017-05-27] MEDS ORDERED: MAG HYDROX/AL HYDROX/SIMETH 30 ML UDC PO STA (09:32)
[2017-05-27] MEDS ORDERED: LIDOCAINE VISCOUS 2% 15 ML UDC MM STA (09:32)
[2017-05-27 09:35] LABS: BILIRUBIN,URINE NEGATIVE (NEGATIVE); CLARITY,URINE CLEAR (CLEAR); ICTOTEST,URINE NEGATIVE
--- NOTE | 2017-05-27 10:32 | ED Physician Documentation ---
History of Present Illness - Stated complaint Stated Complaint: ABD PX - Chief complaint Chief Complaint: Abd Pain - Additonal information Additional information: hx from pt heavy EtOH 2 night ago upper abd pain nausea since feels like prior pancreatitis no fever no NV denies preg no priro abd surgery Review of Systems Constitutional: denies: Fever, Chills GI: reports: Abdominal Pain, Nausea. denies: Vomiting, Diarrhea : denies: Now EGA (denies) Endocrine: denies: Easy bruising / bleeding Immunocompromised: denies: Immunocompromised PD PAST MEDICAL HISTORY - Past Medical History Cardiovascular: None Respiratory: Asthma Neuro: None Endocrine/Autoimmune: None GI: GERD, Pancreatitis : None HEENT: None Psych: Depression, Anxiety Musculoskeletal: Osteoarthritis Derm: None - Past Surgical History Past Surgical History: No - Present Medications Home Medications: Ambulatory Orders Medication Instructions Recorded Confirmed Omeprazole [PriLOSEC] 20 mg PO DAILY 02/23/16 03/12/17 Cetirizine [ZyrTEC] 10 mg PO PRN PRN 02/04/17 03/12/17 Ibuprofen 200 - 800 mg PO PRN PRN 02/04/17 03/12/17 Albuterol Sulfate [Proair Hfa 1 - 2 puffs INH Q4H PRN #1 02/06/17 03/12/17 Inhaler] hfa.aer.ad Magnesium Oxide [Mag Ox] 400 mg PO BID tablet 02/06/17 03/12/17 Thiamine [Vitamin B-1] 100 mg PO DAILY tablet 02/06/17 03/12/17 - Allergies Allergies/Adverse Reactions: Allergies Allergy/AdvReac Type Severity Reaction Status Date / Time No Known Drug Allergies Allergy Verified 03/12/17 04:32 - Social History Does the pt smoke?: No Smoking Status: Never smoker Does the pt drink ETOH?: Yes ETOH Use: Wine, Liquor Does the pt have substance abuse?: No - Immunizations Immunizations are current?: Yes Immunizations: TDAP current <10years - POLST Patient has POLST: No POLST Status: Full Code PD ED PE NORMAL - Vitals Vital signs reviewed: Yes - Neck Neck: Supple, no meningeal sign - Cardiac Cardiac: RRR - Respiratory Respiratory: No respiratory distress - Abdomen Abdomen: Soft, Other (mod upper abd TTP) - Derm Derm: Normal color - Neuro Neuro: Alert and oriented X 3 Results - Vitals Vitals: Vital Signs - 24 hr 05/27/17 05/27/17 05/27/17 09:11 11:32 13:07 Temperature 36.0 C L 36.6 C Heart Rate 87 64 72 Respiratory 18 16 18 Rate Blood Pressure 140/106 H 165/116 H 156/106 H O2 Saturation 100 100 100 Oxygen O2 Source Room air - Labs Labs: Laboratory Tests 05/27/17 05/27/17 05/27/17 09:26 09:55 09:55 Sodium 131 L Potassium 3.5 Chloride 97 L Carbon Dioxide 21 Anion Gap 13.0 BUN 9 Creatinine 0.6 Estimated GFR (MDRD) 109 Glucose 102 H Calcium 9.0 Total Bilirubin 0.9 AST 62 H ALT 77 H Alkaline Phosphatase 64 Total Protein 8.3 H Albumin 4.3 Globulin 4.0 Albumin/Globulin Ratio 1.1 Lipase 588 H Serum HCG, Qual NEGATIVE Urine Color DARK YELLOW Urine Clarity CLEAR Urine pH 5.5 Ur Specific [place] 1.025 Urine Protein TRACE Urine Glucose (UA) NEGATIVE Urine Ketones >=80 H Urine Occult Blood NEGATIVE Urine Nitrite NEGATIVE Urine Bilirubin NEGATIVE Urine Urobilinogen 0.2 (NORMAL) Ur Leukocyte Esterase NEGATIVE Ur Microscopic Review NOT INDICATED Urine Culture Comments NOT INDICATED - Rads (name of study) abd sono Radiology: See rad report (nl GB and CBD, fatty liver, stable cyst) PD MEDICAL DECISION MAKING - ED course ED course: EtOH pancreatitis despite parental meds still having sig pain and trouble managing PO will req hospitalist obs pt for IV nutrition/hydration to hasten recovery paged hospitalist at 131- spoke to hospitalist at 1315 Departure - Departure Disposition: ED Place in Observation Clinical Impression: Pancreatitis Qualifiers: Chronicity: acute Pancreatitis type: alcohol induced Acute pancreatitis complication: unspecified Qualified Code(s): K85.20 - Alcohol induced acute pancreatitis without necrosis or infection Condition: Good
[2017-05-27] MEDS ORDERED: SODIUM CHLORIDE 0.9% 1,000 ML IV ONE (10:33)
[2017-05-27] MEDS ORDERED: KETOROLAC 60 MG/2 ML VIAL IVP STA (10:33)
[2017-05-27] MEDS ORDERED: ONDANSETRON 4 MG/2 ML VIAL IVP STA (10:33)
[2017-05-27 10:36] LABS: ALBUMIN 4.3 g/dL (3.2-5.5); ALBUMIN/GLOBULIN RATIO 1.1 (1.0-2.2); BILIRUBIN,TOTAL 0.9 mg/dL (0.2-1.0); CREATININE 0.6 mg/dL (0.4-1.0); TOTAL PROTEIN 8.3 g/dL (6.7-8.2)
[2017-05-27 11:48] LABS: HCG,QUALITATIVE BLOOD NEGATIVE
[2017-05-27] MEDS ORDERED: MORPHINE 2 MG/ML SYRINGE IVP STA ×2 (12:28→14:40)
--- NOTE | 2017-05-27 12:42 | Ultrasound Report ---
RIGHT UPPER QUADRANT ULTRASOUND: 05/27/2017 CLINICAL INDICATION: Pancreatitis. COMPARISON: CT 12/20/2016, ultrasound 06/27/2016. TECHNIQUE: Real-time scanning was performed with sales representative printing static images obtained. FINDINGS: The liver measures 19 cm. Hepatic echogenicity is again increased, compatible with fatty infiltration. A simple cyst measuring 1.5 cm is again seen in the medial right lobe of the liver. No solid hepatic lesion or intrahepatic biliary dilatation is present. The common bile duct measures 4 mm distally. The gallbladder is normal. Previously noted sludge is no longer seen. No gallbladder wall thickening or pericholecystic fluid is present. The right kidney measures 11.4 cm, and demonstrates no hydronephrosis. No free fluid is seen. IMPRESSION: INFILTRATION OF THE LIVER. STABLE HEPATIC CYST. NO EVIDENCE OF CHOLELITHIASIS OR BILIARY OBSTRUCTION. RESOLUTION OF PREVIOUSLY SEEN GALLBLADDER SLUDGE FROM 06/27/2016. TD: 05/27/2017 12:41
[2017-05-27 14:06] LABS: BASOPHILS % (AUTO) 0.5 %; EOSINOPHILS # (AUTO) 0.1 10^3/uL (0.0-0.7); EOSINOPHILS % (AUTO) 1.8 %; HGB - HEMOGLOBIN 15.1 g/dL (12.0-16.0); LYMPHOCYTES # (AUTO) 0.7 10^3/uL (1.5-3.5); LYMPHOCYTES % (AUTO) 11.7 %; MEAN CORPUSCULAR HEMOGLOBIN 32.9 pg (27.0-31.0); MEAN CORPUSCULAR VOLUME 96.9 fL (81.0-99.0); MEAN PLATELET VOLUME 8.9 fL (7.9-10.8); MONOCYTES # (AUTO) 0.4 10^3/uL (0.0-1.0); MONOCYTES % (AUTO) 6.4 %; NEUTROPHILS % (AUTO) 79.6 %; PLT - PLATELET COUNT 116 10^3/uL (130-450); RED CELL DISTRIBUTION WIDTH 13.7 % (12.0-15.0); WHITE BLOOD COUNT 6.2 x10^3/uL (4.8-10.8)
[2017-05-27] MEDS ORDERED: ZOLPIDEM 5 MG TABLET PO PRN (14:10)
[2017-05-27] MEDS ORDERED: ACETAMINOPHEN 325 MG TABLET PO PRN (14:10)
[2017-05-27] MEDS ORDERED: SODIUM CHLORIDE FLUSH 0.9% 10 ML SYRINGE IVP PRN (14:10)
--- NOTE | 2017-05-27 14:20 | HISTORY & PHYSICAL EXAMINATION ---
Chief Complaint - Chief Complaint Chief Complaint: abdominal pain History of Present Illness - Admitted From Admitted From:: ER - History Obtained From History obtained from: pt - History of Present Illness HPI Comment/Other: Ms Kay is a 41-year-old female with PMH of alcoholic abuse, recurrence alcoholic pancreatitis, depression/anxiety, osteoarthritis, Asthma, who present ER complaints of upper quadrant abdominal pain, and nausea. Pt report she started heavy drinking of alcohol since one week ago. Pt report she is living with other roommates, they all drunk alcohol. Two nights she drunk at [facility] three big glasses of wane and other alcohol. Then she began upper quadrant of abdominal pain, which radiates to her back. She also report nausea but denies vomiting. Pt feels it likes her prior pancreatitis. Pt denies chest pain, shortness of breath, fever, chill, cough, headache, vision issue, GI bleeding. No other complaints. lab test reveals elevated lipase to 588. History - Past Medical History Cardiovascular: reports: None Respiratory: reports: Asthma Neuro: reports: None Endocrine/Autoimmune: reports: None GI: reports: GERD, Pancreatitis : reports: None HEENT: reports: None Psych: reports: Depression, Anxiety Musculoskeletal: reports: Osteoarthritis Derm: reports: None MRSA Hx?: No - Family & Social History Family History: Mother: Alive and Well (Mom is living with Stroke, Dad is living with CAD. Sister is living and well), CVA/TIA, Father: Alive and Well, CAD, Sister: Alive and Well Family History Comment/Other: pt is living alone at [facility]. Pt had roommates who are all drunk of alcohol. Living arrangement: At home Living Situation: Alone Social History Notes: Patient states that she is originally from [place], [place]. She states that she moved to [place] about 6 years ago as her ex- boyfriend was in the [employer]. She currently lives in [place] with 3 roommates. She is not she has no children. 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 She states that she started drinking at the age of 23 but did not become a heavy drinker until her mid 30s. She states that her drinking progressed over the last several years and at worst she drinks up to 2-3 bottles of wine and hard liquor. She states that her drinking has gotten worse over the past several weeks due to the holidays. She denies any tobacco or illicit drug use. - Substance History Use: Uses substance without health or social issues: NONE Abuse: Recurrent use of substance despite neg consequences: Alcohol Abuse Issues: Intoxication - POLST Patient has POLST: No POLST Status: Full Code Meds/Allgy - Home Medications Home Medications: Ambulatory Orders Medication Instructions Recorded Confirmed Omeprazole [PriLOSEC] 20 mg PO QDAC 02/23/16 05/27/17 Cetirizine [ZyrTEC] 10 mg PO PRN PRN 02/04/17 05/27/17 Ibuprofen 400 - 800 mg PO PRN PRN 02/04/17 05/27/17 Albuterol Sulfate [Proair Hfa 1 - 2 puffs INH Q4H PRN #1 02/06/17 05/27/17 Inhaler] hfa.aer.ad Magnesium Oxide [Mag Ox] 400 mg PO BID tablet 02/06/17 05/27/17 Thiamine [Vitamin B-1] 100 mg PO DAILY tablet 02/06/17 05/27/17 Multivitamin [Theragran] 1 tab PO DAILY 05/27/17 05/27/17 - Allergies Allergies/Adverse Reactions: Allergies Allergy/AdvReac Type Severity Reaction Status Date / Time No Known Drug Allergies Allergy Verified 03/12/17 04:32 Review of Systems - Constitutional Constitutional: denies: Fatigue, Fever, Chills, Malaise, Weakness, Poor appetite , Diaphoresis, Night sweats - Eyes Eyes: denies: Pain, Irritation, Amaurosis, Blurred vision, Spots in vision, Field loss, Vision loss, Dipolpia - Ears, Nose & Throat Ears, Nose & Throat: denies: Ear pain, Hearing loss, Hearing aids, Tinnitus, Vertigo, Nasal pain, Nasal discharge, Nosebleeds, Nasal congestion, Sore throat , Mouth lesions, Bleeding gums - Cardiovascular Cariovascular: denies: Irregular heart rate, Palpitations, Chest pain, Edema, Lightheadedness, Syncope, Exertional dyspnea, Decr. exercise tolerance, Orthopnea - Respiratory Respiratory: denies: Cough, Sputum production, Wheezing, Snoring, Hemoptysis, Orthopnea, SOB at rest, SOB with exertion - Gastrointestinal Gastrointestinal: reports: Abdominal pain, Nausea. denies: Abdominal distention , Constipation, Diarrhea, Change in bowel habits, Rectal bleeding, Black stools , Bloody stools, Vomiting, Bile emesis, Melo blood emesis, Coffee grounds emesis, Reflux/heartburn, Poor appetite - Genitourinary Genitourinary: denies: Dysuria, Frequency, Urgency, Hematuria, Incontinence, Flank pain, Nocturia, Urethral discharge - Musculoskeletal Musculoskeletal: denies: Muscle pain, Back pain, Muscle aches, Stiffness, Limited range of motion, Muscle weakness, Gout, Joint pain, Joint swelling - Integumentary Integumentary: denies: Rash, Pruritis, Lesions, Dryness, Lumps, Acne, Pigment changes - Neurological Neurological: denies: General weakness, Focal weakness, Headache, Dizziness, Pre -existing deficit, Abnormal gait, Seizures, Incoordination, Slurred speech - Psychiatric Psychiatric: denies: Depression, Anxiety, Suicidal, Delusions, Hallucinations, Homicidal - Endocrine Endocrine: denies: Polyuria, Polydypsia, Polyphagia, Intolerance to cold - Hematologic/Lymphatic Hematologic/Lymphatic: denies: Anemia, Bruising, Petechiae, Blood clots, Lymphadenopathy, Bleeding tendencies Exam - Vital Signs Reviewed Vital Signs: Yes Vital Signs: Vital Signs x48h Temp Pulse Resp BP Pulse Ox 05/27/17 13:07 72 18 156/106 H 100 05/27/17 11:32 36.6 C 64 16 165/116 H 100 05/27/17 09:11 36.0 C L 87 18 140/106 H 100 - Physical Exam General Appearance: positive: No acute distress, Alert. negative: Lethargic Eyes Bilateral: positive: Normal inspection, PERRL, No lid inflammation, Conjunctivae nml ENT: positive: ENT inspection nml, Pharynx nml, No signs of dehydration. negative: Purulent nasal drainage, Pharyngeal erythema, Oral lesions, Dry mucous membranes Neck: positive: Nml inspection, Thyroid nml, No JVD, Trachea midline. negative : Thyromegaly, Lymphadenopathy (R), Lymphadenopathy (L), Stiff neck, Carotid bruit, Swelling/bruising, Tracheal deviation Respiratory: positive: Chest non-tender, No respiratory distress, Breath sounds nml. negative: Wheezes, Rales, Rhonchi Cardiovascular: positive: Regular rate & rhythm, No murmur, No gallop. negative : Irregularly irregular, Extrasystoles, Tachycardia, Bradycardia, JVD present, Systolic murmur, Diastolic murmur Peripheral Pulses: positive: 2+ Abdomen: positive: Non-tender, No organomegaly, Nml bowel sounds, No distention. negative: Tenderness, Guarding, Rebound, Abnml bowel sounds Back: positive: Nml inspection. negative: CVA tenderness (R), CVA tenderness (L ) Skin: positive: Color nml, No rash, Warm, Dry. negative: Cyanosis, Diaphoresis , Pallor, Skin rash, Decubitus Extremities: positive: Non-tender, Full ROM, Nml appearance. negative: Calf tenderness, Joint swelling, Bebo's sign/cords Neurologic/Psychiatric: positive: Oriented x3, Motor nml, Sensation nml, Mood/ affect nml. negative: Weakness, Sensory loss, Facial droop, Slurred/abnml speech, Depressed mood/affect Conclusion/Plan - Problem List (1) Pancreatitis Conclusion/Plan: it seems be caused by alcohol, and recurrence IVF at 150cc/h clear diet pain control Lipase test, daily lab vital monitor Qualifiers: Chronicity: acute Pancreatitis type: alcohol induced Acute pancreatitis complication: unspecified Qualified Code(s): K85.20 - Alcohol induced acute pancreatitis without necrosis or infection (2) Alcohol abuse Conclusion/Plan: consult with pt for quitting alcohol abuse [facility] protocol multiple vitamin B1 (3) Hyponatremia Conclusion/Plan: it seems pt has chronic mild hyponatremia issue. it seems pt is asymptomatic continue lab monitor, vital monitor IVF with NS (4) Asthma Conclusion/Plan: stable, resume home meds (5) DVT prophylaxis Conclusion/Plan: SCD now, pt walks frequently, not bed-bound (6) Full code status Conclusion/Plan: pt request full code status - Lab Results Fish Bones: 05/28/17 05:10 05/28/17 05:10 Core Measures - Anticipated LOS I expect patient to be DC'd or transferred within 96 hours.: Yes - DVT/VTE - Prophylaxis VTE/DVT Device ordered at admit?: Yes Not Ordered - Low Risk: Low Risk VTE/DVT Prophylaxis med ordered at admit?: No
[2017-05-27] MEDS: HYDROmorphone 1 MG/ML CARPUJECT IVP PRN ×4 (16:05→22:56)
[2017-05-27] MEDS: SODIUM CHLORIDE FLUSH 0.9% 10 ML SYRINGE IVP SCH (16:07)
[2017-05-27] MEDS: SODIUM CHLORIDE 0.9% 1,000 ML IV SCH ×2 (16:30→23:40)
[2017-05-27] MEDS: ONDANSETRON 4 MG/2 ML VIAL IVP PRN (17:19)
[2017-05-27] MEDS: PANTOPRAZOLE 40 MG TABLET PO SCH (18:55)
[2017-05-27] MEDS ORDERED: diazePAM 5 MG TABLET PO PRN (19:02)
[2017-05-27] MEDS: THIAMINE 100 MG TABLET PO SCH (19:35)
[2017-05-27] MEDS ORDERED: FOLIC ACID 1 MG TABLET PO SCH (20:00)
[2017-05-27] MEDS ORDERED: MAG HYDROX/AL HYDROX/SIMETH 30 ML UDC PO PRN (21:56)
[2017-05-28] MEDS: PROCHLORPERAZINE 10 MG/2 ML VIAL IVP PRN ×2 (00:30→08:40)
[2017-05-28] MEDS: HYDROmorphone 1 MG/ML CARPUJECT IVP PRN ×7 (01:15→21:05)
[2017-05-28] MEDS: ONDANSETRON 4 MG/2 ML VIAL IVP PRN ×2 (04:56→11:02)
[2017-05-28 05:26] LABS: BASOPHILS % (AUTO) 0.3 %; EOSINOPHILS % (AUTO) 0.3 %; HGB - HEMOGLOBIN 14.2 g/dL (12.0-16.0); LYMPHOCYTES # (AUTO) 0.5 10^3/uL (1.5-3.5); LYMPHOCYTES % (AUTO) 6.9 %; MEAN CORPUSCULAR HEMOGLOBIN 32.1 pg (27.0-31.0); MEAN CORPUSCULAR HGB CONC 33.4 g/dL (32.0-36.0); MEAN CORPUSCULAR VOLUME 96.2 fL (81.0-99.0); MEAN PLATELET VOLUME 8.5 fL (7.9-10.8); MONOCYTES # (AUTO) 0.7 10^3/uL (0.0-1.0); MONOCYTES % (AUTO) 8.3 %; NEUTROPHILS # (AUTO) 6.7 10^3/uL (1.5-6.6); NEUTROPHILS % (AUTO) 84.2 %; PLT - PLATELET COUNT 114 10^3/uL (130-450); RED BLOOD COUNT 4.41 10^6/uL (4.20-5.40); RED CELL DISTRIBUTION WIDTH 13.9 % (12.0-15.0)
[2017-05-28 05:37] LABS: PT - PROTHROMBIN TIME 11.8 secs (9.9-12.6)
[2017-05-28 05:57] LABS: ALBUMIN 3.7 g/dL (3.2-5.5); ALBUMIN/GLOBULIN RATIO 1.1 (1.0-2.2); CREATININE 0.5 mg/dL (0.4-1.0); MAGNESIUM 1.7 mg/dL (1.7-2.8); TOTAL PROTEIN 7.2 g/dL (6.7-8.2)
[2017-05-28] MEDS: PANTOPRAZOLE 40 MG TABLET PO SCH (06:12)
[2017-05-28] MEDS: SODIUM CHLORIDE 0.9% 1,000 ML IV SCH ×5 (06:13→19:21)
[2017-05-28] MEDS: SODIUM CHLORIDE FLUSH 0.9% 10 ML SYRINGE IVP SCH ×4 (06:14→18:10)
[2017-05-28] MEDS ORDERED: CETIRIZINE 10 MG TABLET PO PRN (07:23)
[2017-05-28] MEDS ORDERED: NON FORMULARY MED (Albuterol Sulfate [Proair Hfa Inhaler] 2 PUFFS) INH PRN (07:23)
[2017-05-28] MEDS ORDERED: ALBUTEROL NEB 2.5 MG/3 ML INH PRN (07:26)
[2017-05-28] MEDS: MULTIVITAMIN TABLET PO SCH (08:45)
[2017-05-28] MEDS: POLYETHYLENE GLYCOL 3350 17 GM PACKET PO SCH (08:46)
[2017-05-28] MEDS ORDERED: ENOXAPARIN 40 MG/0.4 ML SYRINGE SUBQ SCH (09:00)
[2017-05-28] MEDS ORDERED: IOPAMIDOL-300 100 ML VIAL ONE (10:16)
[2017-05-28] MEDS: THIAMINE 100 MG TABLET PO SCH (10:22)
[2017-05-28] MEDS ORDERED: IOPAMIDOL-300 100 ML VIAL IVP ONE (10:53)
--- NOTE | 2017-05-28 11:44 | PROVIDER PROGRESS NOTE ---
Subjective - Prog Note Date Prog Note Date: 05/28/17 - Subjective Pt reports feeling: No change Subjective: pt report she still has some abdominal pain at upper quadrant area, feel nausea as well. No CP, SOB, fever,chill, cough. Current Medications - Current Medications Current Medications: Active Medications Acetaminophen (Tylenol) 650 mg PO Q4HR PRN PRN Reason: Pain 1 to 4 Al Hydroxide/Mg Hydroxide (Mylanta Plus) 30 ml PO Q4HR PRN PRN Reason: INDIGESTION Last Admin: 05/27/17 22:12 Dose: 30 ml Albuterol () 2.5 mg INH RTQ4H PRN PRN Reason: Wheezing Last Admin: 05/28/17 07:59 Dose: 2.5 mg Cetirizine HCl (Zyrtec) 10 mg PO DAILY PRN PRN Reason: ALLERGY SYMPTOMS Diazepam (Valium) 5 mg PO Q1H PRN; Protocol PRN Reason: CIWA > 8 Hydromorphone HCl (Dilaudid Inj Carp) 1 mg IVP Q2HR PRN PRN Reason: Pain 8 to 10 Last Admin: 05/28/17 11:02 Dose: 1 mg Sodium Chloride (Normal Saline 0.9%) 1,000 mls @ 150 mls/hr IV .Q6H40M REPLACED BY [facility] Multivitamins (Theragran) 1 tab PO DAILYWM REPLACED BY [facility] Last Admin: 05/28/17 08:45 Dose: Not Given Ondansetron HCl (Zofran Inj) 4 mg IVP Q6HR PRN PRN Reason: Nausea / Vomiting Last Admin: 05/28/17 11:02 Dose: 4 mg Pantoprazole Sodium (Protonix) 40 mg PO QDAC REPLACED BY [facility] Last Admin: 05/28/17 06:12 Dose: 40 mg Polyethylene Glycol (Miralax) 17 gm PO DAILY REPLACED BY [facility] Last Admin: 05/28/17 08:46 Dose: Not Given Prochlorperazine Edisylate (Compazine Inj) 10 mg IVP Q6HR PRN PRN Reason: Nausea / Vomiting Last Admin: 05/28/17 08:40 Dose: 10 mg Sodium Chloride (Normal Saline Flush 0.9%) 10 ml IVP PRN PRN PRN Reason: NEEDED PER PROVIDER ORDERS Sodium Chloride (Normal Saline Flush 0.9%) 10 ml IVP 0100,0900,1700 REPLACED BY [facility] Last Admin: 05/28/17 10:22 Dose: Not Given Thiamine HCl (Vitamin B-1) 100 mg PO DAILY REPLACED BY [facility] Last Admin: 05/28/17 10:22 Dose: Not Given Zolpidem Tartrate (Ambien) 5 mg PO QPM PRN PRN Reason: Insomnia Omeprazole [PriLOSEC] 20 mg PO QDAC 02/23/16 Cetirizine [ZyrTEC] 10 mg PO PRN PRN 02/04/17 Ibuprofen 400 - 800 mg PO PRN PRN 02/04/17 Multivitamin [Theragran] 1 tab PO DAILY 05/27/17 Objective - Vital Signs/Intake & Output Reviewed Vital Signs: Yes Vital Signs: Vital Signs x48h Temp Pulse Pulse Resp BP Pulse Ox 05/28/17 10:27 146/96 H 05/28/17 08:00 100 28 H 05/28/17 07:48 37.1 C 105 H 18 153/106 H 98 Intake & Output: Intake & Output 05/25/17 05/26/17 05/27/17 05/28/17 23:59 23:59 23:59 23:59 Intake Total 1650 1652.5 Output Total 300 200 Balance 1350 1452.5 - Objective General Appearance: positive: No acute distress, Alert. negative: Lethargic Eyes Bilateral: positive: Normal inspection, PERRL, No lid inflammation, Conjunctivae nml ENT: positive: ENT inspection nml, Pharynx nml, No signs of dehydration. negative: Purulent nasal drainage, Pharyngeal erythema, Oral lesions, Dry mucous membranes Neck: positive: Nml inspection, Thyroid nml, No JVD, Trachea midline. negative : Thyromegaly, Lymphadenopathy (R), Lymphadenopathy (L), Stiff neck, Carotid bruit, Swelling/bruising, Tracheal deviation Respiratory: positive: Chest non-tender, No respiratory distress, Breath sounds nml. negative: Wheezes, Rales, Rhonchi Cardiovascular: positive: Regular rate & rhythm, No murmur, No gallop. negative : Irregularly irregular, Extrasystoles, Tachycardia, Bradycardia, Systolic murmur, Diastolic murmur Peripheral Pulses: 2+ Radial (R), 2+ Radial (L), 2+ Dorsalis pedis (R), 2+ Dorsalis pedis (L) Abdomen: positive: Non-tender, No organomegaly, Nml bowel sounds, No distention. negative: Tenderness, Guarding, Rebound, Abnml bowel sounds Back: positive: Nml inspection. negative: CVA tenderness (R), CVA tenderness (L ) Skin: positive: Color nml, No rash, Warm, Dry. negative: Cyanosis, Diaphoresis , Pallor, Skin rash Extremities: positive: Non-tender, Full ROM, Nml appearance. negative: Calf tenderness, Joint swelling, Bebo's sign/cords Neurologic/Psychiatric: positive: Oriented x3, Motor nml, Sensation nml, Mood/ affect nml. negative: Weakness, Sensory loss, Facial droop, Slurred/abnml speech, Depressed mood/affect - Lab Results Fish Bones: 05/28/17 05:10 05/28/17 05:10 Other Labs: Lab Results x24hrs 05/28/17 05/28/17 05/28/17 Range/Units 05:10 05:10 05:10 WBC 8.0 (4.8-10.8) x10^3/uL RBC 4.41 (4.20-5.40) 10^6/uL Hgb 14.2 (12.0-16.0) g/dL Hct 42.5 (37.0-47.0) % MCV 96.2 (81.0-99.0) fL MCH 32.1 H (27.0-31.0) pg MCHC 33.4 (32.0-36.0) g/dL RDW 13.9 (12.0-15.0) % Plt Count 114 L (130-450) 10^3/uL MPV 8.5 (7.9-10.8) fL Neut # 6.7 H (1.5-6.6) 10^3/uL Lymph # 0.5 L (1.5-3.5) 10^3/uL Wallace # 0.7 (0.0-1.0) 10^3/uL Eos # 0.0 (0.0-0.7) 10^3/uL Baso # 0.0 (0.0-0.1) 10^3/uL Absolute Nucleated RBC 0.02 x10^3/uL Nucleated RBC % 0.2 /100WBC PT 11.8 (9.9-12.6) secs INR 1.0 (0.8-1.2) Sodium (135-145) mmol/L Potassium (3.5-5.0) mmol/L Chloride (101-111) mmol/L Carbon Dioxide (21-32) mmol/L Anion Gap (6-13) BUN (6-20) mg/dL Creatinine (0.4-1.0) mg/dL Estimated GFR (MDRD) (>89) Glucose (70-100) mg/dL Calcium (8.5-10.3) mg/dL Magnesium (1.7-2.8) mg/dL Total Bilirubin (0.2-1.0) mg/dL AST (10-42) IU/L ALT (10-60) IU/L Alkaline Phosphatase (42-121) IU/L C-Reactive Protein 4.2 H (0-1.0) mg/dL Total Protein (6.7-8.2) g/dL Albumin (3.2-5.5) g/dL Globulin (2.1-4.2) g/dL Albumin/Globulin Ratio (1.0-2.2) Lipase (22-51) U/L 05/28/17 Range/Units 05:10 WBC (4.8-10.8) x10^3/uL RBC (4.20-5.40) 10^6/uL Hgb (12.0-16.0) g/dL Hct (37.0-47.0) % MCV (81.0-99.0) fL MCH (27.0-31.0) pg MCHC (32.0-36.0) g/dL RDW (12.0-15.0) % Plt Count (130-450) 10^3/uL MPV (7.9-10.8) fL Neut # (1.5-6.6) 10^3/uL Lymph # (1.5-3.5) 10^3/uL Wallace # (0.0-1.0) 10^3/uL Eos # (0.0-0.7) 10^3/uL Baso # (0.0-0.1) 10^3/uL Absolute Nucleated RBC x10^3/uL Nucleated RBC % /100WBC PT (9.9-12.6) secs INR (0.8-1.2) Sodium 130 L (135-145) mmol/L Potassium 3.5 (3.5-5.0) mmol/L Chloride 100 L (101-111) mmol/L Carbon Dioxide 19 L (21-32) mmol/L Anion Gap 11.0 (6-13) BUN 7 (6-20) mg/dL Creatinine 0.5 (0.4-1.0) mg/dL Estimated GFR (MDRD) 135 (>89) Glucose 128 H (70-100) mg/dL Calcium 8.0 L (8.5-10.3) mg/dL Magnesium 1.7 (1.7-2.8) mg/dL Total Bilirubin 1.0 (0.2-1.0) mg/dL AST 35 (10-42) IU/L ALT 54 (10-60) IU/L Alkaline Phosphatase 69 (42-121) IU/L C-Reactive Protein (0-1.0) mg/dL Total Protein 7.2 (6.7-8.2) g/dL Albumin 3.7 (3.2-5.5) g/dL Globulin 3.5 (2.1-4.2) g/dL Albumin/Globulin Ratio 1.1 (1.0-2.2) Lipase 1340 H (22-51) U/L Assessment/Plan - Problem List (1) Pancreatitis Impression: (1) Pancreatitis Conclusion/Plan: it seems pt is not better after treatment. pt complaint still abdominal pain, nausea, and lipase elevated NPO except meds continue IVF CT of abdomen, follow up to r/o necrosis continue pain control continue anti-emesis PRN it seems be caused by alcohol, and recurrence IVF at 150cc/h clear diet pain control Lipase test, daily lab vital monitor (2) Alcohol abuse Conclusion/Plan: continue CIWA protocol Valium PRN consult with pt for quitting alcohol abuse CIWA protocol multiple vitamin B1 (3) Hyponatremia Conclusion/Plan: Na 130 today, chronic hyponatremia continue vital monitor, IVF with NS it seems pt has chronic hyponatremia issue. it seems pt is asymptomatic continue lab monitor, vital monitor IVF with NS (4) Asthma Conclusion/Plan: stable, resume home meds Qualifiers: Chronicity: acute Pancreatitis type: alcohol induced Acute pancreatitis complication: unspecified Qualified Code(s): K85.20 - Alcohol induced acute pancreatitis without necrosis or infection
[2017-05-29] MEDS: HYDROmorphone 1 MG/ML CARPUJECT IVP PRN ×5 (00:16→12:04)
[2017-05-29] MEDS: ONDANSETRON 4 MG/2 ML VIAL IVP PRN ×2 (00:17→09:39)
[2017-05-29] MEDS: SODIUM CHLORIDE FLUSH 0.9% 10 ML SYRINGE IVP SCH ×2 (01:19→09:21)
[2017-05-29] MEDS: SODIUM CHLORIDE 0.9% 1,000 ML IV SCH (03:45)
[2017-05-29 05:19] LABS: BASOPHILS % (AUTO) 0.5 %; EOSINOPHILS # (AUTO) 0.1 10^3/uL (0.0-0.7); EOSINOPHILS % (AUTO) 2.5 %; HGB - HEMOGLOBIN 12.4 g/dL (12.0-16.0); LYMPHOCYTES # (AUTO) 0.9 10^3/uL (1.5-3.5); MEAN CORPUSCULAR HEMOGLOBIN 32.6 pg (27.0-31.0); MEAN CORPUSCULAR HGB CONC 33.4 g/dL (32.0-36.0); MEAN CORPUSCULAR VOLUME 97.5 fL (81.0-99.0); MEAN PLATELET VOLUME 8.6 fL (7.9-10.8); MONOCYTES # (AUTO) 0.6 10^3/uL (0.0-1.0); MONOCYTES % (AUTO) 11.4 %; NEUTROPHILS # (AUTO) 3.6 10^3/uL (1.5-6.6); NEUTROPHILS % (AUTO) 68.6 %; PLT - PLATELET COUNT 102 10^3/uL (130-450); RED BLOOD COUNT 3.82 10^6/uL (4.20-5.40); WHITE BLOOD COUNT 5.3 x10^3/uL (4.8-10.8)
[2017-05-29 05:27] LABS: ALBUMIN 3.2 g/dL (3.2-5.5); ALBUMIN/GLOBULIN RATIO 0.9 (1.0-2.2); BILIRUBIN,TOTAL 0.8 mg/dL (0.2-1.0); CALCIUM 7.8 mg/dL (8.5-10.3); CREATININE 0.5 mg/dL (0.4-1.0); TOTAL PROTEIN 6.6 g/dL (6.7-8.2)
[2017-05-29] MEDS: PANTOPRAZOLE 40 MG TABLET PO SCH (05:53)
[2017-05-29 08:03] VITALS: BP 133/94
[2017-05-29] MEDS: MULTIVITAMIN TABLET PO SCH (09:21)
[2017-05-29] MEDS: THIAMINE 100 MG TABLET PO SCH (09:21)
[2017-05-29] MEDS: POLYETHYLENE GLYCOL 3350 17 GM PACKET PO SCH (09:21)
[2017-05-29] MEDS ORDERED: CALCIUM GLUCONATE 1,000 MG in SODIUM CHLORIDE 0.9% 50 ML IV ONE (09:30)
--- NOTE | 2017-05-29 09:31 | CT Report ---
CT ABDOMEN AND PELVIS WITH AND WITHOUT CONTRAST: CLINICAL INDICATION: Persistent abdominal pain, pancreatitis, question necrosis. TECHNIQUE: Axial CT images of the abdomen and pelvis were obtained prior to and following 100 mL Isovue 300 intravenously. No oral contrast was administered. COMPARISON: Ultrasound 05/27/2017, CT 12/20/2016. FINDINGS: Limited evaluation of the lung bases demonstrates mild atelectasis of a moderate hiatal hernia. ABDOMEN: There is diffuse fatty infiltration of the liver. The pancreas demonstrates homogeneous enhancement in the arterial and portal venous phases, with no evidence of necrosis. There is peripancreatic inflammation and edema, with inflammatory changes tracking into the pericolic gutters bilaterally. The spleen and adrenal glands are unremarkable. The left kidney demonstrates a small cyst. The right kidney is unremarkable. No hydronephrosis is present. No bowel dilatation, free gas, or abdominal adenopathy is seen. PELVIS: Trace fluid is present in the pelvis. No pelvic adenopathy is present. Osseous structures demonstrate mild degenerative changes. IMPRESSION: PERIPANCREATIC EDEMA AND INFLAMMATION, WITHOUT EVIDENCE OF PANCREATIC NECROSIS. CT DOSE REDUCTION STATEMENT In accordance with CT protocol optimization, one or more of the following dose reduction techniques were utilized for this exam: automated exposure control, adjustment of mA and/or KV based on patient size, or use of iterative reconstructive technique. TD: 05/28/2017 11:36
[2017-05-29] MEDS: PROCHLORPERAZINE 10 MG/2 ML VIAL IVP PRN (12:03)
--- NOTE | 2017-05-29 13:19 | Discharge Plan ---
Discharge Plan Disposition: Home, Self Care Condition: Stable Prescriptions: Ondansetron HCl [Zofran] 4 mg PO Q6H PRN #15 tablet PRN Reason: Nausea / Vomiting oxyCODONE [Roxicodone] 5 mg PO Q6H PRN #15 tablet PRN Reason: Abdominal Pain Diet: Regular Activity Restrictions: Activity as Tolerated Shower Restrictions: No Driving Restrictions: No Weight Bearing: Full Weight Instruction Topics: Lipase, Pancreatitis, Pancreatitis Acute Dc, Addiction Tx Options, Oxycodone tablets or capsules, Ondansetron tablets Additional Instructions or Follow Up instructions: May follow up PCP in one week. Pt is advised to quit alcohol. Should symptoms return or worsen, may present ER or call 911 for help. No Smoking: If you smoke, Please STOP! Call for help. Follow-up with: RYAN MAZA MD [Physician No Access] -
--- NOTE | 2017-05-29 13:26 | DISCHARGE SUMMARY ---
Discharge Summary Discharge Date: 05/29/17 Discharging Provider: GONSALEZ Condition at Discharge: Stable Discharge Disposition: Home, Self Care Discharge Facility Name: home - DIAGNOSES Admission Diagnoses: (1) Pancreatitis (2) Alcohol abuse (3) Hyponatremia (4) Asthma Discharge Diagnoses with Status of Each Condition: (1) Pancreatitis pt report abdominal pain well controlled, tolerate regular diet, Lipase is down to close normal. pt request to be d/c to home (2) Alcohol abuse advise pt quit alcohol. pt state me she will quit (3) Hyponatremia chronic condition. stable. today Na is 133 (4) Asthma stable, continue home meds - HPI History of Present Illness: refer from my HPI as the following: Ms Kay is a 41-year-old female with PMH of alcoholic abuse, recurrence alcoholic pancreatitis, depression/anxiety, osteoarthritis, Asthma, who present ER complaints of upper quadrant abdominal pain, and nausea. Pt report she started heavy drinking of alcohol since one week ago. Pt report she is living with other roommates, they all drunk alcohol. Two nights she drunk at lease three big glasses of wane and other alcohol. Then she began upper quadrant of abdominal pain, which radiates to her back. She also report nausea but denies vomiting. Pt feels it likes her prior pancreatitis. Pt denies chest pain, shortness of breath, fever, chill, cough, headache, vision issue, GI bleeding. No other complaints. lab test reveals elevated lipase to 588. - HOSPITAL COURSE Hospital Course: pt was admitted acute pancreatitis, recurrent. Pt was treated IVF, NPO, pain control. abdominal pain is well controlled, tolerate the regular diet. pt request to be d/c today. - ALLERGIES Allergies/Adverse Reactions: Allergies Allergy/AdvReac Type Severity Reaction Status Date / Time No Known Drug Allergies Allergy Verified 03/12/17 04:32 - MEDICATIONS Home Medications: Ambulatory Orders Medication Instructions Recorded Confirmed Omeprazole [PriLOSEC] 20 mg PO QDAC 02/23/16 05/27/17 Cetirizine [ZyrTEC] 10 mg PO PRN PRN 02/04/17 05/27/17 Ibuprofen 400 - 800 mg PO PRN PRN 02/04/17 05/27/17 Albuterol Sulfate [Proair Hfa 1 - 2 puffs INH Q4H PRN #1 02/06/17 05/27/17 Inhaler] hfa.[email or web address].[email or web address] Magnesium Oxide [Mag Ox] 400 mg PO BID tablet 02/06/17 05/27/17 Thiamine [Vitamin B-1] 100 mg PO DAILY tablet 02/06/17 05/27/17 Multivitamin [Theragran] 1 tab PO DAILY 05/27/17 05/27/17 Ondansetron HCl [Zofran] 4 mg PO Q6H PRN #15 tablet 05/29/17 oxyCODONE [Roxicodone] 5 mg PO Q6H PRN #15 tablet 05/29/17 - PHYSICAL EXAM AT DISCHARGE General Appearance: positive: No acute distress, Alert. negative: Lethargic Eyes Bilateral: positive: Normal inspection, PERRL, No lid inflammation, Conjunctivae nml ENT: positive: ENT inspection nml, No signs of dehydration. negative: Purulent nasal drainage, Pharyngeal erythema, Oral lesions, Dry mucous membranes Neck: positive: Nml inspection, Thyroid nml, No JVD, Trachea midline. negative : Thyromegaly, Lymphadenopathy (R), Lymphadenopathy (L), Stiff neck, Carotid bruit, Swelling/bruising, Tracheal deviation Respiratory: positive: Chest non-tender, No respiratory distress, Breath sounds nml. negative: Wheezes, Rales, Rhonchi Cardiovascular: positive: Regular rate & rhythm, No murmur, No gallop. negative : Irregularly irregular, Extrasystoles, Tachycardia, Bradycardia, JVD present, Systolic murmur, Diastolic murmur Peripheral Pulses: positive: 2+ Abdomen: positive: Non-tender, No organomegaly, Nml bowel sounds, No distention. negative: Tenderness, Guarding, Rebound Back: positive: Nml inspection. negative: CVA tenderness (R), CVA tenderness (L ) Skin: positive: Color nml, No rash, Warm, Dry. negative: Cyanosis, Diaphoresis , Pallor Extremities: positive: Non-tender, Full ROM, Nml appearance. negative: Calf tenderness, Joint swelling, Bebo's sign/cords Neurologic/Psychiatric: positive: Oriented x3, Motor nml, Sensation nml, Mood/ affect nml. negative: Weakness, Sensory loss, Facial droop, Slurred/abnml speech, Depressed mood/affect - LABS Result Diagrams: 05/29/17 04:52 05/29/17 04:52 - FOLLOW UP Follow Up: July follow up PCP in one week. Advise pt quit alcohol. - TIME SPENT Time Spent in Discharge (Minutes): 40
== END 2017-05-29 13:40 | disposition home or self-care (01) ==
LOC: ED 09:05 → MS2 14:10
PROVIDERS: ADMIT Nurse Practitioner Gerontology; ATTEND Nurse Practitioner Gerontology
DX: K85.20 Alcohol induced acute pancreatitis without necrosis or infection (principal); K86.0 Alcohol-induced chronic pancreatitis; E87.1 Hypo-osmolality and hyponatremia; J45.909 Unspecified asthma, uncomplicated; F32.9 Major depressive disorder, single episode, unspecified; F41.9 Anxiety disorder, unspecified; M19.90 Unspecified osteoarthritis, unspecified site; Z79.51 Long term (current) use of inhaled steroids; Z79.899 Other long term (current) drug therapy
CPT/HCPCS: 36415; 74178; 76705; 80053; 81003; 83690; 83735; 84703; 85025; 85610; 86140; 94640; 96361; 96374; 96375; 99284; A9270; G0378; J1170; J2270; J7040; Q9967; 81001; 81025; 87086; 96376

== ENCOUNTER 2017-05-30 14:02 | Emergency (ER) | payer MEDICAID ==
[2017-05-30] MEDS ORDERED: ONDANSETRON ODT 4 MG TABLET TL STA (14:45)
[2017-05-30] MEDS ORDERED: MINERAL OIL ENEMA 133 ML BOTTLE RC STA (14:46)
[2017-05-30 16:13] VITALS: BP 156/111
--- NOTE | 2017-05-30 16:17 | XRAY Preliminary Report ---
Exam: XR ABDOMEN 1 VIEW X-RAY IMPRESSION: No radiographic evidence of bowel obstruction or constipation. Known pancreatitis not ford reciated by radiograph. [facility] SITE ID: [id number]
--- NOTE | 2017-05-30 16:19 | ED Physician Documentation ---
PD HPI ABD PAIN - Stated complaint Stated Complaint: ABD PAIN,VOMITING - Chief complaint Chief Complaint: Abd Pain - History obtained from History obtained from: Patient - History of Present Illness Timing - onset: How many days ago (3) Timing - details: Still present Pain level now: 3 Quality: Pain Location: Other (mid abdomen.) Associated symptoms: Nausea, Vomiting (Once this morning after taking Mag citrate.) Recently seen: Admitted (3 days ago for pancreatitis; discharged yesterday.) - Additional information Additional information: The patient is a 41-year-old female who presents with abdominal pain and is concerned about constipation. She was hospitalized here 3 days ago with pancreatitis and was treated with narcotic medication. She was discharged yesterday. Her last oxycodone was last night. She has had no bowel movement for the last 3 days. She denies flatus. This morning she drank mag citrate but then vomited. She denies fever or dysuria. Her last alcohol was 5 days ago. Review of Systems Constitutional: denies: Fever Nose: denies: Congestion Throat: denies: Sore throat Cardiac: denies: Chest pain / pressure Respiratory: denies: Dyspnea, Cough GI: reports: Abdominal Pain, Nausea, Vomiting, Constipation. denies: Diarrhea : denies: Dysuria Skin: denies: Rash Musculoskeletal: reports: Back pain (mild) Neurologic: denies: Headache PD PAST MEDICAL HISTORY - Past Medical History Cardiovascular: None Respiratory: Asthma Neuro: None Endocrine/Autoimmune: None GI: GERD, Pancreatitis : None HEENT: None Psych: Depression, Anxiety Musculoskeletal: Osteoarthritis Derm: None - Past Surgical History Past Surgical History: No - Present Medications Home Medications: Ambulatory Orders Medication Instructions Recorded Confirmed Cetirizine [ZyrTEC] 10 mg PO PRN PRN 02/04/17 05/27/17 Magnesium Oxide [Mag Ox] 400 mg PO BID tablet 02/06/17 05/27/17 Ondansetron HCl [Zofran] 4 mg PO Q6H PRN #15 tablet 05/29/17 oxyCODONE [Roxicodone] 5 mg PO Q6H PRN #15 tablet 05/29/17 - Allergies Allergies/Adverse Reactions: Allergies Allergy/AdvReac Type Severity Reaction Status Date / Time No Known Drug Allergies Allergy Verified 05/30/17 14:07 - Social History Does the pt smoke?: No Smoking Status: Never smoker Does the pt drink ETOH?: Yes Does the pt have substance abuse?: No - Immunizations Immunizations are current?: Yes Immunizations: TDAP current <10years - POLST Patient has POLST: No POLST Status: Full Code PD ED PE NORMAL - Vitals Vital signs reviewed: Yes (hypertensive) - General General: Alert and oriented X 3, Well developed/nourished - HEENT HEENT: Atraumatic, EOMI, Moist mucous membranes, Pharynx benign - Neck Neck: No adenopathy, No JVD - Cardiac Cardiac: RRR, No murmur - Respiratory Respiratory: No respiratory distress, Clear bilaterally - Abdomen Abdomen: Normal bowel sounds, Soft, Non distended, No organomegaly, Other (Mild tenderness to palpation in the left mid abdomen, without rebound tenderness or guarding.) - Back Back: No CVA TTP - Derm Derm: No rash - Extremities Extremities: No edema, No calf tenderness / cord - Neuro Neuro: Alert and oriented X 3, No motor deficit, Normal speech Results - Vitals Vitals: Oxygen O2 Source Room air - Labs Labs: Laboratory Tests 05/30/17 05/30/17 16:29 16:29 WBC 4.6 L RBC 4.45 Hgb 14.2 Hct 42.8 MCV 96.0 MCH 31.8 H MCHC 33.1 RDW 13.4 Plt Count 149 MPV 8.5 Neut # 3.1 Lymph # 0.8 L [place] # 0.6 Eos # 0.1 Baso # 0.0 Absolute Nucleated RBC 0.00 Nucleated RBC % 0.0 Manual Slide Review Indicated Platelet Estimate NORMAL (130-450,000) Platelet Morphology 1+ GIANT PLATELETS RBC Morph Micro Appear NORMAL APPEARANCE Sodium 130 L Potassium 3.2 L Chloride 93 L Carbon Dioxide 27 Anion Gap 10.0 BUN 6 Creatinine 0.4 Estimated GFR (MDRD) 174 Glucose 119 H Calcium 9.1 Total Bilirubin 0.6 AST 30 ALT 37 Alkaline Phosphatase 63 Total Protein 7.9 Albumin 4.0 Globulin 3.9 Albumin/Globulin Ratio 1.0 Lipase 84 H - Rads (name of study) 1-view abd. Radiology: Prelim report reviewed, EMP read contemporaneously, See rad report ( No radiographic evidence of bowel obstruction or constipation.) PD MEDICAL DECISION MAKING - ED course Complexity details: reviewed old records, reviewed results, re-evaluated patient , considered differential, d/w patient ED course: The patient's presentation is most consistent with residual pain from pancreatitis. Her lipase is mildly elevated at 84, which is improved from her discharge lipase of 210, and significantly improved from her earlier lipase 1340. CBC reveals a normal white count of 4.6. X-ray of her abdomen reveals no significant fecal content and no evidence of obstruction. Treatment in the emergency department included administration of Zofran 4 mg orally, and administration of mineral oil enema. She had no results from the enema, but did report improvement of her nausea with the oral Zofran. She feels comfortable going home, and demonstrated ability to drink fluids prior to discharge. She has both pain medication and antiemetic at home. I discussed with her potentially worrisome signs or symptoms that should prompt reevaluation in the emergency department. Departure - Departure Disposition: 01 Home, Self Care Clinical Impression: Abdominal pain Qualifiers: Abdominal location: upper abdomen, unspecified Qualified Code(s): R10.10 - Upper abdominal pain, unspecified Pancreatitis Qualifiers: Pancreatitis type: alcohol induced Acute pancreatitis complication: no infection or necrosis Vomiting Qualifiers: Vomiting type: unspecified Vomiting Intractability: non-intractable Nausea presence: with nausea Qualified Code(s): R11.2 - Nausea with vomiting, unspecified Condition: Stable Instructions: ED Pancreatitis Follow-Up: Jossy Mckenzie MD [Primary Care Provider] - Comments: Drink plenty of fluids, and eat easily digested foods such as chicken noodle soup. Use oral Zofran as previously prescribed if needed for nausea. Follow up with your primary physician within 1 week. Call to schedule appointment. Return to the emergency department if you develop increasing abdominal pain, persistent vomiting, or otherwise worsening symptoms. Discharge Date/Time: 05/30/17 17:18
--- NOTE | 2017-05-30 16:21 | XRAY Report ---
EXAM: ABDOMEN RADIOGRAPHY EXAM DATE: 05/30/2017 03:33 PM. CLINICAL HISTORY: Abdominal pain; no bowel movement for four days. COMPARISON: CT of the abdomen and pelvis without and with contrast 05/28/2017. TECHNIQUE: 1 view. FINDINGS: Bowel Gas Pattern: No abnormally dilated gas-filled loops of small bowel. Stool burden is within norm al limits with gas, but no evidence of semi-formed or formed stool present throughout the transverse, descending and sigmoid colon. Other: The visualized lung bases are clear. No abnormal intra-abdominal calcification. No acute osseo us abnormality. IMPRESSION: No radiographic evidence of bowel obstruction or constipation. Known pancreatitis not ford reciated by radiograph. [facility] Referring Provider Line: [phone] SITE ID: [id number]
[2017-05-30 16:43] LABS: BASOPHILS % (AUTO) 0.6 %; EOSINOPHILS # (AUTO) 0.1 10^3/uL (0.0-0.7); EOSINOPHILS % (AUTO) 1.6 %; HGB - HEMOGLOBIN 14.2 g/dL (12.0-16.0); LYMPHOCYTES # (AUTO) 0.8 10^3/uL (1.5-3.5); MEAN CORPUSCULAR HEMOGLOBIN 31.8 pg (27.0-31.0); MEAN CORPUSCULAR HGB CONC 33.1 g/dL (32.0-36.0); MEAN PLATELET VOLUME 8.5 fL (7.9-10.8); MONOCYTES # (AUTO) 0.6 10^3/uL (0.0-1.0); MONOCYTES % (AUTO) 13.7 %; NEUTROPHILS # (AUTO) 3.1 10^3/uL (1.5-6.6); NEUTROPHILS % (AUTO) 66.1 %; PLT - PLATELET COUNT 149 10^3/uL (130-450); RED BLOOD COUNT 4.45 10^6/uL (4.20-5.40); RED CELL DISTRIBUTION WIDTH 13.4 % (12.0-15.0); WHITE BLOOD COUNT 4.6 x10^3/uL (4.8-10.8)
[2017-05-30 16:47] LABS: BILIRUBIN,TOTAL 0.6 mg/dL (0.2-1.0); CALCIUM 9.1 mg/dL (8.5-10.3); CREATININE 0.4 mg/dL (0.4-1.0); TOTAL PROTEIN 7.9 g/dL (6.7-8.2)
[2017-05-30 17:09] LABS: PLATELET ESTIMATE, MANUAL NORMAL (130-450,000) (NORMAL); PLATELET MORPHOLOGY 1+ GIANT PLATELETS (NORMAL); RBC MORPHOLOGY (MULTIPLE) NORMAL APPEARANCE (NORMAL)
== END 2017-05-30 17:18 | disposition home or self-care (01) ==
LOC: ED 14:02
DX: K85.20 Alcohol induced acute pancreatitis without necrosis or infection (principal); R10.84 Generalized abdominal pain; R11.2 Nausea with vomiting, unspecified; J45.909 Unspecified asthma, uncomplicated; M19.90 Unspecified osteoarthritis, unspecified site
CPT/HCPCS: 36415; 74018; 80053; 83690; 85025; 99283; 99284; A9270; Q0162

== ENCOUNTER 2017-07-30 07:17 | Inpatient (IN) | payer MEDICAID ==
[2017-07-30] MEDS ORDERED: SODIUM CHLORIDE 0.9% 1,000 ML IV ONE (07:47)
[2017-07-30] MEDS ORDERED: ONDANSETRON 4 MG/2 ML VIAL IVP STA (07:47)
[2017-07-30 08:05] LABS: BASOPHILS % (AUTO) 0.3 %; EOSINOPHILS % (AUTO) 0.1 %; HGB - HEMOGLOBIN 15.4 g/dL (12.0-16.0); LYMPHOCYTES # (AUTO) 0.5 10^3/uL (1.5-3.5); LYMPHOCYTES % (AUTO) 5.2 %; MEAN CORPUSCULAR HEMOGLOBIN 33.3 pg (27.0-31.0); MEAN CORPUSCULAR HGB CONC 34.5 g/dL (32.0-36.0); MEAN CORPUSCULAR VOLUME 96.6 fL (81.0-99.0); MEAN PLATELET VOLUME 8.5 fL (7.9-10.8); MONOCYTES # (AUTO) 0.4 10^3/uL (0.0-1.0); MONOCYTES % (AUTO) 3.8 %; NEUTROPHILS # (AUTO) 8.5 10^3/uL (1.5-6.6); NEUTROPHILS % (AUTO) 90.6 %; PLT - PLATELET COUNT 151 10^3/uL (130-450); RED BLOOD COUNT 4.63 10^6/uL (4.20-5.40); RED CELL DISTRIBUTION WIDTH 13.9 % (12.0-15.0); WHITE BLOOD COUNT 9.4 x10^3/uL (4.8-10.8)
[2017-07-30 08:25] LABS: ALBUMIN 4.3 g/dL (3.2-5.5); ALBUMIN/GLOBULIN RATIO 1.1 (1.0-2.2); ALKALINE PHOSPHATASE 73 IU/L (42-121); ALT ALANINE AMINOTRANSFERASE 97 IU/L (10-60); AST ASPARTATE AMINOTRANSFERASE 88 IU/L (10-42); BILIRUBIN,TOTAL 1.6 mg/dL (0.2-1.0); BUN - BLOOD UREA NITROGEN 11 mg/dL (6-20); CALCIUM 8.9 mg/dL (8.5-10.3); CARBON DIOXIDE - CO2 21 mmol/L (21-32); CHLORIDE 92 mmol/L (101-111); CREATININE 0.5 mg/dL (0.4-1.0); GFR - MDRD 134 (>89); GLUCOSE 176 mg/dL (70-100); SODIUM 127 mmol/L (135-145); TOTAL PROTEIN 8.3 g/dL (6.7-8.2)
[2017-07-30 08:27] LABS: HCG,QUALITATIVE BLOOD NEGATIVE
[2017-07-30] MEDS ORDERED: MORPHINE 2 MG/ML SYRINGE IVP STA ×2 (08:27→09:03)
--- NOTE | 2017-07-30 08:29 | ED Physician Documentation ---
History of Present Illness - Stated complaint Stated Complaint: SIDE PX - Chief complaint Chief Complaint: Abd Pain - Additonal information Additional information: hx from pt 42 female denies preg no prior surgeries hx EtOH induced pancreatitis heavy EtOH use over holiday weekend and now has severe abd pain LUQ most of all with NV very similar to prior bouts of pancreatits no blood in vomit no fever minimal diarrhea Review of Systems Constitutional: denies: Fever, Chills Cardiac: denies: Chest pain / pressure Respiratory: denies: Dyspnea GI: reports: Abdominal Pain, Nausea, Vomiting. denies: Diarrhea : denies: Now EGA Endocrine: denies: Easy bruising / bleeding Immunocompromised: denies: Immunocompromised PD PAST MEDICAL HISTORY - Past Medical History Past Medical History: Yes Cardiovascular: None Respiratory: Asthma Endocrine/Autoimmune: None GI: GERD, Pancreatitis : None HEENT: None Psych: Depression, Anxiety Musculoskeletal: Osteoarthritis Derm: None - Past Surgical History Past Surgical History: No - Present Medications Home Medications: Ambulatory Orders Medication Instructions Recorded Confirmed Cetirizine [ZyrTEC] 10 mg PO DAILY PRN 02/04/17 07/30/17 Albuterol Sulfate [Proair Hfa 2 puffs INH Q4H PRN 07/30/17 07/30/17 Inhaler] Multivitamin [Theragran] 1 tab PO DAILY 07/30/17 07/30/17 Omeprazole 10 mg PO QDAC 07/30/17 07/30/17 - Allergies Allergies/Adverse Reactions: Allergies Allergy/AdvReac Type Severity Reaction Status Date / Time No Known Drug Allergies Allergy Verified 05/30/17 14:07 - Social History Does the pt smoke?: No Smoking Status: Never smoker Does the pt drink ETOH?: Yes Does the pt have substance abuse?: No - Immunizations Immunizations are current?: Yes Immunizations: TDAP current <10years - POLST Patient has POLST: No POLST Status: Full Code PD ED PE NORMAL - Vitals Vital signs reviewed: Yes - General General: Alert and oriented X 3 - HEENT HEENT: Atraumatic - Neck Neck: Supple, no meningeal sign - Cardiac Cardiac: RRR - Respiratory Respiratory: No respiratory distress, Clear bilaterally - Abdomen Abdomen: Normal bowel sounds, Soft. No: Non tender (sig diffuse TTP LUQ most of all, vol guarding, no rebound) - Neuro Neuro: Alert and oriented X 3 Results - Vitals Vitals: Vital Signs - 24 hr 07/30/17 07/30/17 07/30/17 07:26 09:00 10:10 Temperature 35.9 C L Heart Rate 79 76 66 Respiratory 20 16 16 Rate Blood Pressure 149/113 H 173/106 H 160/105 H O2 Saturation 100 99 Oxygen O2 Source Room air - Labs Labs: Laboratory Tests 07/30/17 07/30/17 07:57 07:57 WBC 9.4 RBC 4.63 Hgb 15.4 Hct 44.7 MCV 96.6 MCH 33.3 H MCHC 34.5 RDW 13.9 Plt Count 151 MPV 8.5 Neut # 8.5 H Lymph # 0.5 L Carver # 0.4 Eos # 0.0 Baso # 0.0 Absolute Nucleated RBC 0.00 Nucleated RBC % 0.0 Sodium 127 L Potassium 3.2 L Chloride 92 L Carbon Dioxide 21 Anion Gap 14.0 H BUN 11 Creatinine 0.5 Estimated GFR (MDRD) 134 Glucose 176 H Calcium 8.9 Total Bilirubin 1.6 H AST 88 H ALT 97 H Alkaline Phosphatase 73 Total Protein 8.3 H Albumin 4.3 Globulin 4.0 Albumin/Globulin Ratio 1.1 Lipase 850 H Serum HCG, Qual NEGATIVE - Rads (name of study) abd sono Radiology: See rad report (fatty liver (pt advised) CBD 7 mm nl GB, CBD 6-7, no FF, mild R renal pelviectasis) PD MEDICAL DECISION MAKING - ED course ED course: ruq nono no gallstines and nl CBD so likely is indeed EtOH induced lipase 850 pain persists despite numerous doses pain meds will admit called hospitalist at 1020 will admit - advises inpt status urine not a clean catch, dip + blood but no RBC, dehydrated Departure - Departure Disposition: 66 [facility] DC/Xfer Clinical Impression: Alcohol abuse Pancreatitis Qualifiers: Chronicity: acute Pancreatitis type: alcohol induced Acute pancreatitis complication: unspecified Qualified Code(s): K85.20 - Alcohol induced acute pancreatitis without necrosis or infection
[2017-07-30 08:35] LABS: LIPASE 850 U/L (22-51)
[2017-07-30] MEDS ORDERED: KETOROLAC 60 MG/2 ML VIAL IVP STA (10:20)
[2017-07-30] MEDS ORDERED: ONDANSETRON ODT 4 MG TABLET TL PRN (10:23)
[2017-07-30] MEDS ORDERED: MORPHINE 2 MG/ML SYRINGE IVP PRN (10:23)
[2017-07-30] MEDS ORDERED: PROCHLORPERAZINE 10 MG/2 ML VIAL IVP PRN (10:23)
[2017-07-30 10:37] LABS: BILIRUBIN,URINE NEGATIVE (NEGATIVE); GLUCOSE, URINE (UA) NEGATIVE (NEGATIVE); KETONES,URINE (UA) >=80 mg/dL (NEGATIVE); LEUKOCYTE ESTERASE, URINE NEGATIVE (NEGATIVE); NITRITE,URINE NEGATIVE (NEGATIVE); OCCULT BLOOD,URINE MODERATE (NEGATIVE); PH,URINE 5.5 PH (5.0-7.5); PROTEIN,URINE TRACE mg/dL (NEGATIVE); UROBILINOGEN,URINE 0.2 (NORMAL) E.U./dL (NORMAL)
--- NOTE | 2017-07-30 10:41 | Ultrasound Report ---
RIGHT UPPER QUADRANT ULTRASOUND: 07/30/2017 CLINICAL INDICATION: Elevated bilirubin, pancreatitis. TECHNIQUE: Real-time scanning was performed with leather goods sales representative static images obtained. FINDINGS: The liver measures 18.1 cm. Hepatic echogenicity is increased, compatible with fatty infiltration. A 1.6 cm cyst is again seen in the medial right lobe. The common bile duct is mildly prominent, measuring up to 7 mm. The gallbladder appears normal. The right kidney measures 10.1 cm, and demonstrates mild pelviectasis, new from previous. No free fluid is seen. IMPRESSION: MILD PROMINENCE OF THE COMMON BILE DUCT, MEASURING UP TO 7 MM, WITHOUT EVIDENCE OF CHOLELITHIASIS. MILD RIGHT RENAL PELVIECTASIS, NEW FROM PREVIOUS. TD: 07/30/2017 10:30
[2017-07-30 10:48] LABS: BACTERIA,URINE Moderate /HPF (None Seen); CASTS, URINE 0-2 Hyaline Casts /LPF; CLARITY,URINE CLEAR (CLEAR); MUCUS,URINE Marked Strands; RBC,URINE 0-5 /HPF (0-5); SQUAMOUS EPITHELIAL CELL,UR MANY Squamous (<= Few)
[2017-07-30] MEDS: SODIUM CHLORIDE 0.9% 1,000 ML IV SCH ×3 (11:11→20:10)
[2017-07-30] MEDS: SODIUM CHLORIDE FLUSH 0.9% 10 ML SYRINGE IVP SCH (11:35)
--- NOTE | 2017-07-30 11:42 | HISTORY & PHYSICAL EXAMINATION ---
Chief Complaint - Chief Complaint Chief Complaint: nausea, vomiting and abdominal pain History of Present Illness - Admitted From Admitted From:: ER - History Obtained From History obtained from: pt - History of Present Illness HPI Comment/Other: Ms Kay is a 41-year-old female with a PMH significant for alcoholic abuse, recurrence alcoholic pancreatitis, depression/anxiety, osteoarthritis, Asthma, who present ER complaints of left upper quadrant abdominal pain, and nausea and vomiting. Pt report she had a heavy drinking of 7 cocktail alcohol in this week Friday hol. Today she started to have left upper quadrant abdominal pain which radiate to her back and bilateral her chest. She state the pain is similar as she had before, after she had heavy alcohol drinking. She also report nausea and vomiting. Pt denies chest pain, shortness of breath, fever, chill, cough, headache, vision issue, GI bleeding. lab test reveals elevated lipase to 850, Na 127, Potassium 3.2, elevated Bilirubin, liver enzyme. History - Past Medical History Cardiovascular: reports: None Respiratory: reports: Asthma Neuro: reports: None Endocrine/Autoimmune: reports: None GI: reports: GERD, Pancreatitis : reports: None HEENT: reports: None Psych: reports: Depression, Anxiety Musculoskeletal: reports: Osteoarthritis Derm: reports: None MRSA Hx?: No - Family & Social History Family History: Mother: Alive and Well (Mom is living with Stroke, Dad is living with CAD. Sister is living and well), CVA/TIA, Father: Alive and Well, CAD, Sister: Alive and Well Family History Comment/Other: pt is living alone at [facility]. Pt had roommates who are all drunk of alcohol. Social History Notes: Patient states that she is originally from [place], [place]. She states that she moved to [place] about 6 years ago as her ex- boyfriend was in the [place]. She currently lives in [place] with 3 roommates. She is not she has no children. 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 She states that she started drinking at the age of 23 but did not become a heavy drinker until her mid 30s. She states that her drinking progressed over the last several years and at worst she drinks up to 2-3 bottles of wine and hard liquor. She states that her drinking has gotten worse over the past several weeks due to the holidays. She denies any tobacco or illicit drug use. - Substance History Use: Uses substance without health or social issues: NONE - POLST Patient has POLST: No POLST Status: Full Code Meds/Allgy - Home Medications Home Medications: Ambulatory Orders Medication Instructions Recorded Confirmed Cetirizine [ZyrTEC] 10 mg PO DAILY PRN 02/04/17 07/30/17 Albuterol Sulfate [Proair Hfa 2 puffs INH Q4H PRN 07/30/17 07/30/17 Inhaler] Multivitamin [Theragran] 1 tab PO DAILY 07/30/17 07/30/17 Omeprazole 10 mg PO QDAC 07/30/17 07/30/17 - Allergies Allergies/Adverse Reactions: Allergies Allergy/AdvReac Type Severity Reaction Status Date / Time No Known Drug Allergies Allergy Verified 05/30/17 14:07 Review of Systems - Constitutional Constitutional: denies: Fatigue, Fever, Chills, Malaise, Weakness, Poor appetite , Diaphoresis, Night sweats - Eyes Eyes: denies: Pain, Irritation, Amaurosis, Blurred vision, Spots in vision, Field loss, Vision loss, Dipolpia - Ears, Nose & Throat Ears, Nose & Throat: denies: Ear pain, Hearing loss, Tinnitus, Vertigo, Nasal pain, Nasal discharge, Nosebleeds, Nasal obstruction, Postnasal drainage, Dentures, Sore throat, Mouth lesions, Bleeding gums - Cardiovascular Cariovascular: denies: Irregular heart rate, Palpitations, Chest pain, Edema, Lightheadedness, Syncope, Exertional dyspnea, Decr. exercise tolerance - Respiratory Respiratory: denies: Cough, Sputum production, Wheezing, Snoring, Hemoptysis, Orthopnea, SOB at rest, SOB with exertion - Gastrointestinal Gastrointestinal: reports: Abdominal pain, Nausea, Vomiting. denies: Abdominal distention, Constipation, Diarrhea, Change in bowel habits, Rectal bleeding, Black stools, Bloody stools, Bile emesis, Melo blood emesis, Coffee grounds emesis, Reflux/heartburn, Bloating, Poor appetite - Genitourinary Genitourinary: denies: Dysuria, Frequency, Urgency, Hematuria, Incontinence, Flank pain, Nocturia, Urethral discharge - Musculoskeletal Musculoskeletal: denies: Muscle pain, Back pain, Muscle aches, Stiffness, Limited range of motion, Muscle weakness, Gout, Joint pain - Integumentary Integumentary: denies: Rash, Pruritis, Lesions, Dryness, Lumps, Acne, Pigment changes, Nail changes - Neurological Neurological: denies: General weakness, Focal weakness, Headache, Dizziness, Numbness, Memory problems, Pre-existing deficit, Abnormal gait, Seizures, Incoordination, Slurred speech - Psychiatric Psychiatric: denies: Depression, Anxiety, Suicidal, Delusions, Hallucinations, Homicidal - Endocrine Endocrine: denies: Polyuria, Polydypsia, Polyphagia, Intolerance to cold - Hematologic/Lymphatic Hematologic/Lymphatic: denies: Anemia, Bruising, Petechiae, Blood clots, Lymphadenopathy, Bleeding tendencies Exam - Vital Signs Reviewed Vital Signs: Yes Vital Signs: Vital Signs x48h Temp Pulse Resp BP Pulse Ox 07/30/17 10:45 36.5 C 82 16 148/101 H 98 - Physical Exam General Appearance: positive: No acute distress, Alert. negative: Lethargic Eyes Bilateral: positive: Normal inspection, PERRL, No lid inflammation, Conjunctivae nml ENT: positive: ENT inspection nml, Pharynx nml, No signs of dehydration. negative: Purulent nasal drainage, Pharyngeal erythema, Oral lesions Neck: positive: Nml inspection, Thyroid nml, No JVD, Trachea midline. negative : Thyromegaly, Lymphadenopathy (R), Lymphadenopathy (L), Stiff neck, Carotid bruit, Swelling/bruising, Tracheal deviation Respiratory: positive: Chest non-tender, No respiratory distress, Breath sounds nml. negative: Wheezes, Rales, Rhonchi Cardiovascular: positive: Regular rate & rhythm, No murmur, No gallop. negative : Irregularly irregular, Extrasystoles, Tachycardia, Bradycardia, JVD present, Systolic murmur, Diastolic murmur Peripheral Pulses: positive: 2+ Abdomen: positive: Non-tender, No organomegaly, Nml bowel sounds, No distention. negative: Tenderness, Guarding, Rebound Back: positive: Nml inspection. negative: CVA tenderness (R), CVA tenderness (L ) Skin: positive: Color nml, No rash, Warm, Dry. negative: Cyanosis, Diaphoresis , Pallor Extremities: positive: Non-tender, Full ROM, Nml appearance. negative: Calf tenderness, Joint swelling, Bebo's sign/cords Neurologic/Psychiatric: positive: Oriented x3, Motor nml, Sensation nml, Mood/ affect nml. negative: Weakness, Sensory loss, Facial droop, Slurred/abnml speech, Depressed mood/affect Conclusion/Plan - Problem List (1) Pancreatitis Conclusion/Plan: it seems recurrence of pancreatitis after pt had a heavy alcohol drinking, Lipase 850 NPO IVF pain control daily lab Lipase test, vital monitor Qualifiers: Chronicity: acute Pancreatitis type: alcohol induced Acute pancreatitis complication: unspecified Qualified Code(s): K85.20 - Alcohol induced acute pancreatitis without necrosis or infection (2) Alcohol abuse Conclusion/Plan: consult and advise pt quit alcohol (3) Hyponatremia Conclusion/Plan: it seems caused by alcohol abuse, heaving drinking with nausea and vomiting IVF of NS daily lab monitor (4) Hypokalemia Conclusion/Plan: K is 3.2, replacement with Potassium daily lab monitor (5) Nausea & vomiting Conclusion/Plan: antiemesis, PRN (6) Elevated liver enzymes Conclusion/Plan: it seem caused by heavy alcohol drinking advise pt quit alcohol daily lab monitor (7) History of asthma Conclusion/Plan: stable, resume home Albuterol (8) DVT prophylaxis Conclusion/Plan: SCD (9) Full code status Conclusion/Plan: pt request full code - Lab Results Fish Bones: 07/30/17 07:57 07/30/17 07:57 Core Measures - Anticipated LOS I expect patient to be DC'd or transferred within 96 hours.: Yes - DVT/VTE - Prophylaxis VTE/DVT Device ordered at admit?: Yes
[2017-07-30] MEDS ORDERED: ALBUTEROL NEB 2.5 MG/3 ML INH PRN (11:49)
[2017-07-30] MEDS ORDERED: POTASSIUM CHLOR 10 MEQ/100 ML 10 MEQ/100 ML BAG IV ONE (12:00)
[2017-07-30] MEDS: HYDROmorphone 0.5 MG/0.5 ML SYRINGE IVP PRN ×6 (12:13→22:35)
[2017-07-30] MEDS ORDERED: SENNA 8.6 MG TABLET PO SCH (15:00)
[2017-07-30] MEDS ORDERED: DOCUSATE SODIUM 250 MG CAPSULE PO SCH (15:00)
[2017-07-30] MEDS: SODIUM CHLORIDE FLUSH 0.9% 10 ML SYRINGE IVP PRN (15:35)
[2017-07-30] MEDS: ONDANSETRON 4 MG/2 ML VIAL IVP PRN (15:35)
[2017-07-31] MEDS: HYDROmorphone 0.5 MG/0.5 ML SYRINGE IVP PRN ×11 (00:46→21:07)
[2017-07-31] MEDS: SODIUM CHLORIDE 0.9% 1,000 ML IV SCH ×4 (00:51→19:03)
[2017-07-31] MEDS: ONDANSETRON 4 MG/2 ML VIAL IVP PRN ×2 (04:44→17:24)
[2017-07-31 05:37] LABS: BASOPHILS % (AUTO) 0.3 %; HGB - HEMOGLOBIN 13.6 g/dL (12.0-16.0); LYMPHOCYTES # (AUTO) 0.8 10^3/uL (1.5-3.5); LYMPHOCYTES % (AUTO) 6.7 %; MEAN CORPUSCULAR HEMOGLOBIN 32.3 pg (27.0-31.0); MEAN CORPUSCULAR HGB CONC 32.7 g/dL (32.0-36.0); MEAN CORPUSCULAR VOLUME 98.8 fL (81.0-99.0); MONOCYTES # (AUTO) 0.8 10^3/uL (0.0-1.0); MONOCYTES % (AUTO) 6.3 %; NEUTROPHILS # (AUTO) 10.5 10^3/uL (1.5-6.6); NEUTROPHILS % (AUTO) 86.7 %; PLT - PLATELET COUNT 130 10^3/uL (130-450); RED CELL DISTRIBUTION WIDTH 13.9 % (12.0-15.0); WHITE BLOOD COUNT 12.2 x10^3/uL (4.8-10.8)
[2017-07-31 05:50] LABS: ALBUMIN 3.2 g/dL (3.2-5.5); ALBUMIN/GLOBULIN RATIO 0.9 (1.0-2.2); CALCIUM 7.5 mg/dL (8.5-10.3); CREATININE 0.5 mg/dL (0.4-1.0); MAGNESIUM 1.3 mg/dL (1.7-2.8); PHOSPHORUS 1.8 mg/dL (2.5-4.6); TOTAL PROTEIN 6.6 g/dL (6.7-8.2)
[2017-07-31] MEDS: PANTOPRAZOLE 40 MG VIAL IVP SCH (06:10)
[2017-07-31] MEDS: SODIUM CHLORIDE FLUSH 0.9% 10 ML SYRINGE IVP SCH ×3 (06:12→07:30)
[2017-07-31] MEDS: POLYETHYLENE GLYCOL 3350 17 GM PACKET PO SCH (07:11)
[2017-07-31] MEDS ORDERED: ACETAMINOPHEN 500 MG TABLET PO PRN (07:16)
[2017-07-31] MEDS ORDERED: MAGNESIUM SULFATE 2 GRAM 2 GM/50 ML BAG IV SCH (08:00)
[2017-07-31] MEDS ORDERED: cefTRIAXone 1 GM in SODIUM CHLORIDE 0.9% MINIBAG 100 ML IV SCH (08:00)
[2017-07-31] MEDS: NEUTRA-PHOS 250 MG TABLET PO SCH ×3 (08:46→17:16)
[2017-07-31] MEDS: THIAMINE 100 MG TABLET PO SCH (08:53)
[2017-07-31] MEDS: FOLIC ACID 1 MG TABLET PO SCH (08:53)
[2017-07-31] MEDS: DOCUSATE SODIUM 250 MG CAPSULE PO SCH (09:00)
[2017-07-31] MEDS ORDERED: cefTRIAXone 1 GM VIAL IVP SCH (09:00)
[2017-07-31] MEDS ORDERED: SENNA 8.6 MG TABLET PO SCH (09:00)
[2017-07-31 09:22] LABS: BILIRUBIN,URINE NEGATIVE (NEGATIVE); GLUCOSE, URINE (UA) NEGATIVE (NEGATIVE); KETONES,URINE (UA) 40 mg/dL (NEGATIVE); LEUKOCYTE ESTERASE, URINE NEGATIVE (NEGATIVE); NITRITE,URINE NEGATIVE (NEGATIVE); OCCULT BLOOD,URINE MODERATE (NEGATIVE); PROTEIN,URINE NEGATIVE (NEGATIVE); UROBILINOGEN,URINE 0.2 (NORMAL) E.U./dL (NORMAL)
[2017-07-31 09:24] LABS: CLARITY,URINE CLEAR (CLEAR)
[2017-07-31 09:29] LABS: BACTERIA,URINE Few /HPF (None Seen); RBC,URINE 0-5 /HPF (0-5); SQUAMOUS EPITHELIAL CELL,UR FEW Squamous (<= Few)
--- NOTE | 2017-07-31 12:08 | PROVIDER PROGRESS NOTE ---
Subjective - Prog Note Date Prog Note Date: 07/31/17 - Subjective Pt reports feeling: Improved Subjective: pt report she feel better, abdominal pain is controlled, no N/V. pt report she had slight fever on last night Current Medications - Current Medications Current Medications: Active Medications Acetaminophen (Tylenol) 500 mg PO Q4HR PRN PRN Reason: Pain or Fever > 38C (100.4F) Albuterol () 2.5 mg INH RTQ4H PRN PRN Reason: Wheezing Docusate Sodium (Colace 250mg Capsule) 250 - 500 mg PO DAILY [facility] Last Admin: 07/31/17 09:00 Dose: 500 mg Folic Acid () 1 mg PO DAILY [facility] Last Admin: 07/31/17 08:53 Dose: 1 mg Hydromorphone HCl (Dilaudid Inj Syringe) 0.5 mg IVP Q2H PRN PRN Reason: PAIN Last Admin: 07/31/17 15:03 Dose: 0.5 mg Sodium Chloride (Normal Saline 0.9%) 1,000 mls @ 200 mls/hr IV .Q5H [facility] Last Admin: 07/31/17 13:57 Dose: 200 mls/hr Ceftriaxone Sodium 1 gm/ (Sodium Chloride) 100 mls @ 200 mls/hr IV Q24H [facility] Last Infusion: 07/31/17 09:32 Dose: Infused Ondansetron HCl (Zofran Inj) 4 mg IVP Q6HR PRN PRN Reason: Nausea / Vomiting Last Admin: 07/31/17 04:44 Dose: 4 mg Ondansetron HCl (Zofran Odt) 4 mg TL Q6HR PRN PRN Reason: Nausea / Vomiting Pantoprazole Sodium (Protonix) 40 mg IVP QDAC [facility] Last Admin: 07/31/17 06:10 Dose: 40 mg Polyethylene Glycol (Miralax) 17 gm PO DAILY [facility] Last Admin: 07/31/17 07:11 Dose: Not Given Prochlorperazine Edisylate (Compazine Inj) 10 mg IVP Q6HR PRN PRN Reason: Nausea / Vomiting Last Admin: 07/30/17 11:11 Dose: 10 mg Senna (Senokot) 17.2 - 25.8 mg PO Q6H [facility] Stop: 08/01/17 12:01 Sodium Chloride (Normal Saline Flush 0.9%) 10 ml IVP PRN PRN PRN Reason: NEEDED PER PROVIDER ORDERS Last Admin: 07/30/17 15:35 Dose: 10 ml Sodium Chloride (Normal Saline Flush 0.9%) 10 ml IVP 0100,0900,1700 [facility] Last Admin: 07/31/17 07:30 Dose: Not Given Sodium Phosphate (K-Phos Neutral) 250 mg PO TIDWM [facility] Stop: 07/31/17 17:01 Last Admin: 07/31/17 09:33 Dose: Not Given Thiamine HCl (Vitamin B-1) 100 mg PO DAILY [facility] Last Admin: 07/31/17 08:53 Dose: 100 mg Cetirizine [ZyrTEC] 10 mg PO DAILY PRN 02/04/17 Albuterol Sulfate [Proair Hfa Inhaler] 2 puffs INH Q4H PRN 07/30/17 Multivitamin [Theragran] 1 tab PO DAILY 07/30/17 Omeprazole 10 mg PO QDAC 07/30/17 Objective - Vital Signs/Intake & Output Reviewed Vital Signs: Yes Vital Signs: Vital Signs x48h Temp Pulse Pulse Resp BP Pulse Ox 07/31/17 08:12 110 H 18 07/31/17 07:28 37.5 C 99 20 137/92 H 96 07/31/17 06:10 37.7 C H 07/31/17 06:08 38 C H Intake & Output: Intake & Output 07/28/17 07/29/17 07/30/17 07/31/17 23:59 23:59 23:59 23:59 Intake Total 4332.908 2696.000 Output Total 550 1600 Balance 2184.065 0817.000 - Objective General Appearance: positive: No acute distress, Alert. negative: Lethargic Eyes Bilateral: positive: Normal inspection, PERRL, No lid inflammation, Conjunctivae nml ENT: positive: ENT inspection nml, Pharynx nml, No signs of dehydration. negative: Purulent nasal drainage, Pharyngeal erythema, Oral lesions Neck: positive: Nml inspection, Thyroid nml, No JVD, Trachea midline. negative : Thyromegaly, Lymphadenopathy (R), Lymphadenopathy (L), Stiff neck, Swelling/ bruising, Tracheal deviation Respiratory: positive: Chest non-tender, No respiratory distress, Breath sounds nml. negative: Wheezes, Rales, Rhonchi Cardiovascular: positive: Regular rate & rhythm, No murmur, No gallop. negative : Irregularly irregular, Extrasystoles, Tachycardia, Bradycardia, JVD present, Systolic murmur, Diastolic murmur Peripheral Pulses: 2+ Radial (R), 2+ Radial (L), 2+ Dorsalis pedis (R), 2+ Dorsalis pedis (L) Abdomen: positive: Non-tender, No organomegaly, Nml bowel sounds, No distention. negative: Tenderness, Guarding, Rebound Back: positive: Nml inspection. negative: CVA tenderness (R), CVA tenderness (L ) Skin: positive: Color nml, No rash, Warm, Dry. negative: Cyanosis, Diaphoresis , Pallor Extremities: positive: Non-tender, Full ROM, Nml appearance. negative: Calf tenderness, Joint swelling, Bebo's sign/cords Neurologic/Psychiatric: positive: Oriented x3, Motor nml, Sensation nml, Mood/ affect nml. negative: Sensory loss, Facial droop, Slurred/abnml speech, Depressed mood/affect - Lab Results Fish Bones: 07/31/17 04:59 07/31/17 04:59 Other Labs: Lab Results x24hrs 07/31/17 07/31/17 07/31/17 Range/Units 09:09 04:59 04:59 WBC 12.2 H (4.8-10.8) x10^3/uL RBC 4.20 (4.20-5.40) 10^6/uL Hgb 13.6 (12.0-16.0) g/dL Hct 41.5 (37.0-47.0) % MCV 98.8 (81.0-99.0) fL MCH 32.3 H (27.0-31.0) pg MCHC 32.7 (32.0-36.0) g/dL RDW 13.9 (12.0-15.0) % Plt Count 130 (130-450) 10^3/uL MPV 9.0 (7.9-10.8) fL Neut # 10.5 H (1.5-6.6) 10^3/uL Lymph # 0.8 L (1.5-3.5) 10^3/uL [place] # 0.8 (0.0-1.0) 10^3/uL Eos # 0.0 (0.0-0.7) 10^3/uL Baso # 0.0 (0.0-0.1) 10^3/uL Absolute Nucleated RBC 0.01 x10^3/uL Nucleated RBC % 0.1 /100WBC Sodium 131 L (135-145) mmol/L Potassium 3.6 (3.5-5.0) mmol/L Chloride 100 L (101-111) mmol/L Carbon Dioxide 21 (21-32) mmol/L Anion Gap 10.0 (6-13) BUN 6 (6-20) mg/dL Creatinine 0.5 (0.4-1.0) mg/dL Estimated GFR (MDRD) 134 (>89) Glucose 126 H (70-100) mg/dL Calcium 7.5 L (8.5-10.3) mg/dL Phosphorus 1.8 L (2.5-4.6) mg/dL Magnesium 1.3 L (1.7-2.8) mg/dL Total Bilirubin 1.0 (0.2-1.0) mg/dL AST 130 H (10-42) IU/L ALT 88 H (10-60) IU/L Alkaline Phosphatase 55 (42-121) IU/L Total Protein 6.6 L (6.7-8.2) g/dL Albumin 3.2 (3.2-5.5) g/dL Globulin 3.4 (2.1-4.2) g/dL Albumin/Globulin Ratio 0.9 L (1.0-2.2) Lipase 820 H (22-51) U/L Urine Color DARK YELLOW Urine Clarity CLEAR (CLEAR) Urine pH 6.0 (5.0-7.5) PH Ur Specific [place] >=1.030 H (1.002-1.030) Urine Protein NEGATIVE (NEGATIVE) mg/dL Urine Glucose (UA) NEGATIVE (NEGATIVE) mg/dL Urine Ketones 40 H (NEGATIVE) mg/dL Urine Occult Blood MODERATE H (NEGATIVE) Urine Nitrite NEGATIVE (NEGATIVE) Urine Bilirubin NEGATIVE (NEGATIVE) Urine Urobilinogen 0.2 (NORMAL) (NORMAL) E.U./dL Ur Leukocyte Esterase NEGATIVE (NEGATIVE) Urine RBC 0-5 (0-5) /HPF Urine WBC 4-5 (0-5) /HPF Ur Squamous Epith Cells FEW Squamous (<= Few) Urine Bacteria Few (None Seen) /HPF Urine Culture Comments NOT INDICATED ABX Reporting Has patient been on IV antibiotics over the past 48 hours?: Yes Assessment/Plan - Problem List (1) Pancreatitis Impression: Lipase is only reduced a little from 850 to 820. pt feel pain is controlled. No N/V continue IVF, continue NPO daily lab monitor Conclusion/Plan: it seems recurrence of pancreatitis after pt had a heavy alcohol drinking, Lipase 850 NPO IVF pain control daily lab Lipase test, vital monitor (2) Alcohol abuse Conclusion/Plan: add B-1 and folic acid consult and advise pt quit alcohol (3) Hyponatremia Conclusion/Plan: improved to 131 continue IVF it seems caused by alcohol abuse, heaving drinking with nausea and vomiting IVF of NS daily lab monitor (4) Hypokalemia Conclusion/Plan: resolved K is 3.2, replacement with Potassium daily lab monitor (5) Nausea & vomiting Conclusion/Plan: controlled antiemesis, PRN (6) Elevated liver enzymes Conclusion/Plan: continue elevated US of abdomen without significant finding it seem caused by heavy alcohol drinking advise pt quit alcohol daily lab monitor (7) History of asthma Conclusion/Plan: stable, resume home Albuterol (8) fever pt had slight fever in medical floor blood culture Zosyn order UA, previous undetermined pt does not present ay respiratory distress lab, vital monitor Qualifiers: Chronicity: acute Pancreatitis type: alcohol induced Acute pancreatitis complication: unspecified Qualified Code(s): K85.20 - Alcohol induced acute pancreatitis without necrosis or infection
[2017-07-31] MEDS ORDERED: PIPERACILLIN/TAZOBACTAM 3.375 GM in SODIUM CHLORIDE 0.9% MINIBAG 100 ML IV SCH (17:00)
[2017-07-31] MEDS: SENNA 8.6 MG TABLET PO SCH (17:17)
[2017-07-31] MEDS ORDERED: HYDROmorphone 0.5 MG/0.5 ML SYRINGE ONE (17:22)
[2017-08-01] MEDS ORDERED: ACETAMINOPHEN 1,000 MG/100 ML 100 ML IV PRN (00:03)
[2017-08-01] MEDS: SODIUM CHLORIDE 0.9% 1,000 ML IV SCH ×3 (00:20→06:14)
[2017-08-01] MEDS: ACETAMINOPHEN 1,000 MG/100 ML 100 ML IV PRN ×2 (00:20→11:47)
[2017-08-01] MEDS: SENNA 8.6 MG TABLET PO SCH ×3 (01:24→12:05)
[2017-08-01] MEDS: PIPERACILLIN/TAZOBACTAM 3.375 GM in SODIUM CHLORIDE 0.9% MINIBAG 100 ML IV SCH ×3 (01:25→13:21)
[2017-08-01] MEDS: KETOROLAC 30 MG/ML VIAL IVP PRN ×3 (01:28→14:09)
[2017-08-01] MEDS: SODIUM CHLORIDE FLUSH 0.9% 10 ML SYRINGE IVP SCH ×2 (01:45→09:09)
[2017-08-01 05:15] LABS: BASOPHILS % (AUTO) 0.3 %; EOSINOPHILS % (AUTO) 0.5 %; HGB - HEMOGLOBIN 10.6 g/dL (12.0-16.0); LYMPHOCYTES # (AUTO) 0.9 10^3/uL (1.5-3.5); MEAN CORPUSCULAR HEMOGLOBIN 32.9 pg (27.0-31.0); MEAN CORPUSCULAR HGB CONC 33.8 g/dL (32.0-36.0); MEAN CORPUSCULAR VOLUME 97.3 fL (81.0-99.0); MEAN PLATELET VOLUME 8.8 fL (7.9-10.8); MONOCYTES # (AUTO) 0.7 10^3/uL (0.0-1.0); MONOCYTES % (AUTO) 9.8 %; NEUTROPHILS # (AUTO) 5.3 10^3/uL (1.5-6.6); NEUTROPHILS % (AUTO) 76.4 %; PLT - PLATELET COUNT 91 10^3/uL (130-450); RED BLOOD COUNT 3.23 10^6/uL (4.20-5.40); RED CELL DISTRIBUTION WIDTH 14.1 % (12.0-15.0); WHITE BLOOD COUNT 6.9 x10^3/uL (4.8-10.8)
[2017-08-01 05:27] LABS: ALBUMIN 2.5 g/dL (3.2-5.5); ALBUMIN/GLOBULIN RATIO 0.9 (1.0-2.2); BILIRUBIN,TOTAL 1.3 mg/dL (0.2-1.0); CREATININE 0.4 mg/dL (0.4-1.0); MAGNESIUM 1.9 mg/dL (1.7-2.8); PHOSPHORUS 1.4 mg/dL (2.5-4.6); TOTAL PROTEIN 5.4 g/dL (6.7-8.2)
[2017-08-01] MEDS: PANTOPRAZOLE 40 MG VIAL IVP SCH (06:38)
[2017-08-01] MEDS ORDERED: POTASSIUM CHLORIDE 20 MEQ TABLET PO SCH (08:00)
[2017-08-01] MEDS ORDERED: CALCIUM GLUCONATE 1,000 MG in SODIUM CHLORIDE 0.9% 50 ML IV ONE (08:30)
[2017-08-01] MEDS: NEUTRA-PHOS 250 MG TABLET PO SCH ×2 (08:51→12:04)
[2017-08-01] MEDS: DOCUSATE SODIUM 250 MG CAPSULE PO SCH (08:54)
[2017-08-01] MEDS: FOLIC ACID 1 MG TABLET PO SCH (08:56)
[2017-08-01] MEDS: POLYETHYLENE GLYCOL 3350 17 GM PACKET PO SCH (09:07)
[2017-08-01] MEDS: THIAMINE 100 MG TABLET PO SCH (09:17)
--- NOTE | 2017-08-01 10:09 | XRAY Report ---
FRONTAL CHEST: 08/01/2017 CLINICAL INDICATION: Fever. FINDINGS: Frontal view of the chest demonstrates a normal cardiac silhouette. There is minimal left basilar atelectasis. No effusion or pneumothorax is seen. IMPRESSION: MINIMAL LEFT BASILAR ATELECTASIS. TD: 08/01/2017 10:00
--- NOTE | 2017-08-01 11:26 | CT Report ---
CT ABDOMEN AND PELVIS WITHOUT CONTRAST: 08/01/2017 CLINICAL INDICATION: Abdominal pain. COMPARISON: 05/28/2017 TECHNIQUE: Axial CT images of the abdomen and pelvis were obtained without oral or intravenous contrast. FINDINGS: Limited evaluation of the lung bases demonstrates mild basilar atelectasis and a trace left effusion. ABDOMEN: The liver again demonstrates diffuse fatty infiltration. There has been interval increase in peripancreatic inflammatory changes. The spleen, kidneys and adrenal glands appear unremarkable. The gallbladder is not dilated. No bowel dilatation, free gas, or abdominal adenopathy is seen. PELVIS: Small amount of free fluid is present in the pelvis. No pelvic adenopathy is identified. The pelvic organs appear unremarkable. IMPRESSION: 1. INTERVAL INCREASE IN PERIPANCREATIC INFLAMMATORY CHANGES. 2. FATTY INFILTRATION OF THE LIVER. 3. SMALL AMOUNT OF FREE FLUID IN THE PELVIS. CT DOSE REDUCTION STATEMENT In accordance with CT protocol optimization, one or more of the following dose reduction techniques were utilized for this exam: automated exposure control, adjustment of mA and/or KV based on patient size, or use of iterative reconstructive technique. TD: 08/01/2017 11:12
--- NOTE | 2017-08-01 13:25 | Discharge Plan ---
Discharge Plan Disposition: Home, Self Care Condition: Poor Prescriptions: Calcium Citrate 200 mg PO DAILY #5 tablet Cephalexin [Keflex] 500 mg PO BID #14 capsule Ondansetron HCl [Zofran] 4 mg PO Q6H PRN #15 tablet PRN Reason: Nausea / Vomiting oxyCODONE [Roxicodone] 5 mg PO Q6H PRN #15 tablet PRN Reason: Abdominal Pain Diet: Regular Activity Restrictions: Activity as Tolerated Shower Restrictions: No (fall precaution) Instruction Topics: Acetaminophen tablets or caplets, Nausea Vomit Control, Pancreatitis Acute Dc, Oxycodone tablets or capsules, Ondansetron tablets, Cephalexin tablets or capsules Additional Instructions or Follow Up instructions: you may follow up your PCP in 1-2 weeks, have a CT of abdomen in two weeks to monitor your pancreatitis status. Should your symptoms return or worsen, you may present ER or call 911 for help. No Smoking: If you smoke, Please STOP! Call for help. Follow-up with: Jossy Mckenzie MD [Primary Care Provider] -
[2017-08-01 13:26] VITALS: BP 140/94
--- NOTE | 2017-08-01 13:36 | DISCHARGE SUMMARY ---
Discharge Summary Discharge Date: 08/01/17 Discharging Provider: GONSALEZ Primary Care Provider: Dr. Mckenzie Condition at Discharge: Poor Discharge Disposition: Home, Self Care Discharge Facility Name: home - DIAGNOSES Admission Diagnoses: (1) Pancreatitis (2) Alcohol abuse (3) Hyponatremia (4) Hypokalemia (5) Nausea & vomiting (6) Elevated liver enzymes (7) History of asthma Discharge Diagnoses with Status of Each Condition: (1) Pancreatitis Lipase is down to 44. pt denies abdominal pain, N/V. pt is tolerated regular diet. CT reveals pt had increase inflammation per pancreases. Pt is advised to follow up PCP and have CT in two weeks to monitor her pancreases inflammation status pt requested to be discharged today. (2) Alcohol abuse pt state she understand many her medical problem was caused by her alcohol abuse. she state again she will quit drinking. (3) Hyponatremia chronic problem, today her sodium 130, asymptomatic. continue to be managed by PCP (4) Hypokalemia chronic. replaced. continue to be managed by PCP (5) Nausea & vomiting resolved (6) Elevated liver enzymes resolved (7) History of asthma stable. (8) fever no more fever. preliminary Blood culture in two tubes is negative. Unknown resource. Pt had no respiratory distress. CXR unremarkable. CT of abdomen reveals no acute infection. UA negative UTI. pt is prescribed Kflex. Pt refused to have HIV test - HPI History of Present Illness: Ms Kay is a 41-year-old female with a PMH significant for alcoholic abuse, recurrence alcoholic pancreatitis, depression/anxiety, osteoarthritis, Asthma, who present ER complaints of left upper quadrant abdominal pain, and nausea and vomiting. Pt report she had a heavy drinking of 7 cocktail alcohol in this week Friday holiday. Today she started to have left upper quadrant abdominal pain which radiate to her back and bilateral her chest. She state the pain is similar as she had before, after she had heavy alcohol drinking. She also report nausea and vomiting. Pt denies chest pain, shortness of breath, fever, chill, cough, headache, vision issue, GI bleeding. lab test reveals elevated lipase to 850, Na 127, Potassium 3.2, elevated Bilirubin, liver enzyme. - ALLERGIES Allergies/Adverse Reactions: Allergies Allergy/AdvReac Type Severity Reaction Status Date / Time No Known Drug Allergies Allergy Verified 05/30/17 14:07 - MEDICATIONS Home Medications: Ambulatory Orders Medication Instructions Recorded Confirmed Cetirizine [ZyrTEC] 10 mg PO DAILY PRN 02/04/17 07/30/17 Albuterol Sulfate [Proair Hfa 2 puffs INH Q4H PRN 07/30/17 07/30/17 Inhaler] Multivitamin [Theragran] 1 tab PO DAILY 07/30/17 07/30/17 Omeprazole 10 mg PO QDAC 07/30/17 07/30/17 Calcium Citrate 200 mg PO DAILY #5 tablet 08/01/17 Cephalexin [Keflex] 500 mg PO BID #14 capsule 08/01/17 Ondansetron HCl [Zofran] 4 mg PO Q6H PRN #15 tablet 08/01/17 oxyCODONE [Roxicodone] 5 mg PO Q6H PRN #15 tablet 08/01/17 - PHYSICAL EXAM AT DISCHARGE General Appearance: positive: No acute distress, Alert. negative: Lethargic Eyes Bilateral: positive: Normal inspection, PERRL, No lid inflammation, Conjunctivae nml ENT: positive: ENT inspection nml, Pharynx nml, No signs of dehydration. negative: Purulent nasal drainage, Pharyngeal erythema, Oral lesions Neck: positive: Nml inspection, Thyroid nml, No JVD, Trachea midline. negative : Thyromegaly, Lymphadenopathy (R), Lymphadenopathy (L), Stiff neck, Swelling/ bruising, Tracheal deviation Respiratory: positive: Chest non-tender, No respiratory distress, Breath sounds nml. negative: Wheezes, Rales, Rhonchi Cardiovascular: positive: Regular rate & rhythm, No murmur, No gallop. negative : Irregularly irregular, Extrasystoles, Tachycardia, Bradycardia, Systolic murmur, Diastolic murmur Peripheral Pulses: positive: 2+ Abdomen: positive: Non-tender, No organomegaly, Nml bowel sounds, No distention. negative: Tenderness, Guarding, Rebound Back: positive: Nml inspection. negative: CVA tenderness (R), CVA tenderness (L ) Skin: positive: Color nml, No rash, Warm, Dry. negative: Cyanosis, Diaphoresis , Pallor Extremities: positive: Non-tender, Full ROM, Nml appearance. negative: Calf tenderness, Joint swelling, Bebo's sign/cords Neurologic/Psychiatric: positive: Oriented x3, Motor nml, Sensation nml, Mood/ affect nml. negative: Weakness, Sensory loss, Facial droop, Slurred/abnml speech, Depressed mood/affect - LABS Result Diagrams: 08/01/17 04:30 08/01/17 04:30 - FOLLOW UP Follow Up: you may follow up your PCP in 1-2 weeks, have a CT of abdomen in two weeks to monitor your pancreatitis status. Should your symptoms return or worsen, you may present ER or call 911 for help. - TIME SPENT Time Spent in Discharge (Minutes): 45
[2017-08-01] MEDS: SODIUM CHLORIDE FLUSH 0.9% 10 ML SYRINGE IVP PRN (14:15)
== END 2017-08-01 16:00 | disposition home or self-care (01) | DRG 439 ==
LOC: ED 07:17 → MS3 10:23
PROVIDERS: ADMIT Specialist; ATTEND Nurse Practitioner Gerontology
DX: K85.20 Alcohol induced acute pancreatitis without necrosis or infection (principal); E87.1 Hypo-osmolality and hyponatremia; F10.188 Alcohol abuse with other alcohol-induced disorder; E87.6 Hypokalemia; R79.89 Other specified abnormal findings of blood chemistry; J45.909 Unspecified asthma, uncomplicated; K21.9 Gastro-esophageal reflux disease without esophagitis; M19.90 Unspecified osteoarthritis, unspecified site; Z79.52 Long term (current) use of systemic steroids; Z79.899 Other long term (current) drug therapy
CPT/HCPCS: 36415; 71045; 74176; 76705; 80053; 81001; 81003; 83690; 83735; 84100; 84703; 85025; 87040; 87086; 96361; 96374; 96376; 99283; 99284

== ENCOUNTER 2017-11-06 17:05 | Outpatient (CLI) | payer MEDICAID ==
[2017-11-06 20:33] LABS: BILIRUBIN,URINE NEGATIVE (NEGATIVE); GLUCOSE, URINE (UA) NEGATIVE (NEGATIVE); KETONES,URINE (UA) NEGATIVE (NEGATIVE); LEUKOCYTE ESTERASE, URINE SMALL (NEGATIVE); NITRITE,URINE POSITIVE (NEGATIVE); OCCULT BLOOD,URINE SMALL (NEGATIVE); PROTEIN,URINE NEGATIVE (NEGATIVE); UROBILINOGEN,URINE 0.2 (NORMAL) E.U./dL (NORMAL)
[2017-11-06 20:48] LABS: CLARITY,URINE HAZY (CLEAR)
[2017-11-06 20:49] LABS: BACTERIA,URINE Many /HPF (None Seen); RBC,URINE 0-5 /HPF (0-5); SQUAMOUS EPITHELIAL CELL,UR FEW Squamous (<= Few); WBC CLUMPS,URINE PRESENT
== END 2017-11-06 17:06 ==
LOC: LAB.R 17:05
PROVIDERS: ATTEND Physician Assistant Medical
DX: R30.0 Dysuria (principal)
CPT/HCPCS: 81001; 87086